=== PATIENT | male | born 1965 | race American Indian/Alaskan Native ===

== ENCOUNTER 2016-10-04 18:07 | Emergency (ER) | payer MEDICARE ==
[2016-10-04 19:00] LABS: Basophils % (Auto) 0.4 % (0.0-1.8); Eosinophils % (Auto) 0.4 % (0.0-4.3); Hematocrit 43.3 % (35.5-45.6); Hemoglobin 15.1 gm/dl (11.8-15.2); Mean Corpuscular HGB Conc 35 % (32-34); Mean Corpuscular Hemoglobin 33 pg (28-32); Mean Corpuscular Volume 95 fl (84-94); Platelet Count 249 K/mm3 (140-440); Red Blood Count 4.56 M/mm3 (3.65-5.03); Red Cell Distribution Width 14.8 % (13.2-15.2); White Blood Count 6.5 K/mm3 (4.5-11.0)
[2016-10-04 19:16] LABS: Anion Gap 27 mmol/L; Blood Urea Nitrogen 9 mg/dL (9-20); Calcium 9.1 mg/dL (8.4-10.2); Carbon Dioxide 17 mmol/L (22-30); Chloride 95.9 mmol/L (98-107); Glucose 82 mg/dL (75-100); Potassium 3.6 mmol/L (3.6-5.0); Sodium 136 mmol/L (137-145)
[2016-10-04 21:21] LABS: Urine Drugs of Abuse Note Disclamer
[2016-10-04 21:38] LABS: Bilirubin,Urine NEG (Negative); Blood,Urine NEG (Negative); Ketones,Urine 80 mg/dL (Negative); Leukocyte Esterase,Urine NEG (Negative); Mucus,Urine FEW /HPF; Nitrite,Urine NEG (Negative); Protein,Urine <15 mg/dL mg/dL (Negative); Urobilinogen,Urine < 2.0 mg/dL (<2.0)
[2016-10-04] MEDS ORDERED: ZOFRAN ODT ONE (22:17)
[2016-10-04] MEDS ORDERED: ZOFRAN ODT PO ONE (22:20)
[2016-10-04] MEDS ORDERED: NACL 0.9% 1000 ML 1,000 ML IV ONE (23:50)
[2016-10-04] MEDS ORDERED: ZOFRAN IV ONE (23:50)
[2016-10-04] MEDS ORDERED: ATIVAN IV ONE (23:52)
[2016-10-04] MEDS ORDERED: ATIVAN PO ONE (23:55)
--- NOTE | 2016-10-04 23:59 | Emergency Department Report ---
ED Medical Clearance HPI - General Chief complaint: Medical Clearance Stated complaint: MEDICAL CLEARANCE,SEIZURE DISORDER Time Seen by Provider: 10/04/16 23:49 Source: patient Mode of arrival: Wheelchair - History of Present Illness Initial comments: 51-year-old male with history of EtOH abuse, seizure, aortic anerusym presenting to the ED complaining of alcohol withdrawal. Patient states he's had dizziness, shortness of breath, nausea secondary to alcohol withdrawal. Pt states his last dose of ETOH was yesterday. Pt states this morning he started to have : mild tremors, N/V, chest pain. He also states while in the home he he felt as if he was going to pass out . however he did not lose consciouness, he felt like he was in a "haze". His eye were opened MD Complaint: medical clearance request Home medications: Previous Rx's Medication Instructions Recorded Last Taken Type Thiamine [Vitamin B-1] 100 mg PO QDAY #30 tablet 07/23/15 Unknown Rx levETIRAcetam [Keppra TAB] 500 mg PO BID #60 tablet 07/23/15 09/29/15 Rx Colchicine 0.6 mg PO DAILY #5 tablet 01/25/16 Unknown Rx Ondansetron [Zofran Odt] 4 mg PO Q8HR PRN #20 tab.rapdis 10/05/16 Unknown Rx chlordiazePOXIDE [Librium] 10 mg PO Q8H #3 capsule 10/05/16 Unknown Rx chlordiazePOXIDE [Librium] 25 mg PO Q8H #3 capsule 10/05/16 Unknown Rx chlordiazePOXIDE [Librium] 50 mg PO Q8H #6 capsule 10/05/16 Unknown Rx levETIRAcetam [Keppra TAB] 500 mg PO BID #30 tablet 10/05/16 Unknown Rx Allergies/Adverse reactions: Allergies Allergy/AdvReac Type Severity Reaction Status Date / Time No Known Allergies Allergy Verified 01/02/15 21:46 ED Review of Systems ROS: Stated complaint: MEDICAL CLEARANCE,SEIZURE DISORDER Other details as noted in HPI Constitutional: denies: chills, fever Eyes: denies: eye pain, eye discharge, vision change ENT: denies: ear pain, throat pain Respiratory: SOB with exertion. denies: cough, shortness of breath, wheezing Cardiovascular: chest pain, palpitations Endocrine: no symptoms reported Gastrointestinal: denies: abdominal pain, nausea, diarrhea Genitourinary: denies: urgency, dysuria Musculoskeletal: denies: back pain, joint swelling, arthralgia Skin: denies: rash, lesions Neurological: denies: headache, weakness, paresthesias Psychiatric: denies: anxiety, depression Hematological/Lymphatic: denies: easy bleeding, easy bruising ED Past Medical Hx - Past Medical History Hx Congestive Heart Failure: No Hx Diabetes: No Hx Arthritis: Yes Hx Seizures: Yes Hx Psychiatric Treatment: Yes (SCHIZOPHRENIA) Hx Asthma: No Hx COPD: No Additional medical history: Gout, Irregular heart beat - Social History Smoking Status: Never Smoker Substance Use Type: Alcohol - Medications Home Medications: Home Medications Medication Instructions Recorded Confirmed Last Taken Type Thiamine [Vitamin B-1] 100 mg PO QDAY #30 tablet 07/23/15 03/26/16 Unknown Rx levETIRAcetam [Keppra TAB] 500 mg PO BID #60 tablet 07/23/15 03/26/16 09/29/15 Rx Colchicine 0.6 mg PO DAILY #5 tablet 01/25/16 03/26/16 Unknown Rx Ondansetron [Zofran Odt] 4 mg PO Q8HR PRN #20 tab.rapdis 10/05/16 Unknown Rx chlordiazePOXIDE [Librium] 10 mg PO Q8H #3 capsule 10/05/16 Unknown Rx chlordiazePOXIDE [Librium] 25 mg PO Q8H #3 capsule 10/05/16 Unknown Rx chlordiazePOXIDE [Librium] 50 mg PO Q8H #6 capsule 10/05/16 Unknown Rx levETIRAcetam [Keppra TAB] 500 mg PO BID #30 tablet 10/05/16 Unknown Rx ED Physical Exam - General Limitations: No Limitations General appearance: alert, in no apparent distress - Head Head exam: Present: atraumatic, normocephalic - Eye Eye exam: Present: normal appearance - ENT ENT exam: Present: mucous membranes moist - Neck Neck exam: Present: normal inspection - Respiratory Respiratory exam: Present: normal lung sounds bilaterally. Absent: respiratory distress - Cardiovascular Cardiovascular Exam: Present: regular rate, normal rhythm. Absent: systolic murmur, diastolic murmur, rubs, gallop - GI/Abdominal GI/Abdominal exam: Present: soft, normal bowel sounds - Rectal Rectal exam: Present: deferred - Extremities Exam Extremities exam: Present: normal inspection - Back Exam Back exam: Present: normal inspection - Neurological Exam Neurological exam: Present: alert, oriented X3, CN II-XII intact, normal gait, other (CIWA: 5 for tremor, anxiety, mild nausea ). Absent: motor sensory deficit - Psychiatric Psychiatric exam: Present: normal affect, normal mood - Skin Skin exam: Present: warm, dry, intact, normal color. Absent: rash ED Course Vital Signs 10/04/16 10/04/16 10/04/16 18:28 23:20 23:55 Temperature 97.8 F 98.2 F 98.1 F Pulse Rate 95 H 98 H 99 H Respiratory 20 18 20 Rate Blood Pressure 154/100 135/96 Blood Pressure 138/87 [Left] O2 Sat by Pulse 100 100 99 Oximetry 10/05/16 01:44 Temperature Pulse Rate 84 Respiratory 16 Rate Blood Pressure Blood Pressure 126/87 [Left] O2 Sat by Pulse 99 Oximetry ED Medical Decision Making - Lab Data Result diagrams: 10/04/16 18:44 10/04/16 18:44 - Medical Decision Making 51-year-old male presenting to the secondary to EtOH withdrawal. Patient's CIWA score 2 for moderate tremor. I have low suspicion for acute cardiac pathology or DTs. I will dc pt home to complete his ETOH detox outpt. Pt agrees and has no complaints - Differential Diagnosis DT, ACS, dissection, anuerysm rupture ED Disposition Clinical Impression: Alcohol withdrawal, Noncompliance with medication regimen Disposition: DC-01 TO HOME OR SELFCARE Is pt being admited?: No Does the pt Need Aspirin: No Condition: Stable Instructions: Abuse of Alcohol (ED) Prescriptions: chlordiazePOXIDE [Librium] 10 mg PO Q8H #3 capsule chlordiazePOXIDE [Librium] 50 mg PO Q8H #6 capsule chlordiazePOXIDE [Librium] 25 mg PO Q8H #3 capsule levETIRAcetam [Keppra TAB] 500 mg PO BID #30 tablet Ondansetron [Zofran Odt] 4 mg PO Q8HR PRN #20 tab.rapdis PRN Reason: Vomiting Referrals: PRIMARY CARE, [Primary Care Provider] - 3-5 Days Forms: Work/School Release Form(ED) Time of Disposition: 02:00
[2016-10-05] MEDS ORDERED: ATIVAN ONE (00:14)
[2016-10-05 00:40] LABS: Albumin 4.3 g/dL (3.9-5); Albumin/Globulin Ratio 0.9 %; Bilirubin,Direct 0.3 mg/dL (0-0.2); Bilirubin,Indirect 0.7 mg/dL
[2016-10-05 01:45] VITALS: BP 126/87
[2016-10-05] MEDS ORDERED: KEPPRA PO ONE (01:54)
--- NOTE | 2016-10-05 07:39 | XRay Report ---
AP CHEST: HISTORY: Shortness of breath Compared to 09/29/15. Heart size appears within normal limits on today's exam. AP view of the chest demonstrates a normal mediastinal and cardiac contour with clear lungs and normal bony and soft tissue structures. IMPRESSION: Unremarkable AP chest.
== END 2016-10-05 02:23 | disposition home or self-care (01) ==
LOC: ED 18:07
DX: F10.239 Alcohol dependence with withdrawal, unspecified (principal); Z91.14 Patient's other noncompliance with medication regimen; F20.9 Schizophrenia, unspecified
CPT/HCPCS: 36415; 71010; 80048; 80074; 80307; 81001; 83880; 84484; 85025; 93005; 93010; 96361; 96374; 99284; G0480; J2405; J7030; 80320; J2060; Q0162

== ENCOUNTER 2017-11-16 21:33 | Emergency (ER) | payer MEDICARE ==
[2017-11-16] MEDS ORDERED: ASPIRIN PO ONE (22:15)
[2017-11-16 23:15] LABS: Basophils % (Auto) 0.6 % (0.0-1.8); Eosinophils # (Auto) 0.2 K/mm3 (0.0-0.4); Eosinophils % (Auto) 3.9 % (0.0-4.3); Hematocrit 41.3 % (35.5-45.6); Hemoglobin 13.9 gm/dl (11.8-15.2); Lymphocytes # (Auto) 1.3 K/mm3 (1.2-5.4); Lymphocytes % (Auto) 30.3 % (13.4-35.0); Mean Corpuscular HGB Conc 34 % (32-34); Mean Corpuscular Hemoglobin 33 pg (28-32); Mean Corpuscular Volume 99 fl (84-94); Monocytes # (Auto) 0.4 K/mm3 (0.0-0.8); Monocytes % (Auto) 8.4 % (0.0-7.3); Platelet Count 203 K/mm3 (140-440); Red Blood Count 4.18 M/mm3 (3.65-5.03); Red Cell Distribution Width 14.1 % (13.2-15.2)
[2017-11-16 23:36] LABS: BUN/Creatinine Ratio 14; Blood Urea Nitrogen 10 mg/dL (9-20); Calcium 9.3 mg/dL (8.4-10.2); Hemolysis Index 27
[2017-11-17] MEDS ORDERED: ZOFRAN IV ONE (02:04)
[2017-11-17] MEDS ORDERED: PEPCID IV ONE ×2 (02:04→06:07)
[2017-11-17] MEDS ORDERED: NACL 0.9% 1000 ML 1,000 ML IV ONE (02:04)
[2017-11-17 02:51] LABS: Alanine Aminotransferase 123 units/L (7-56); Albumin 4.1 g/dL (3.9-5); Lipase 20 units/L (13-60)
[2017-11-17 02:54] LABS: Bilirubin,Direct < 0.2 mg/dL (0-0.2)
--- NOTE | 2017-11-17 04:11 | Emergency Department Report ---
ED Psych HPI - General Chief Complaint: Psych Stated Complaint: HEART/MH Time Seen by Provider: 11/17/17 02:00 Source: patient Mode of arrival: Ambulatory - History of Present Illness Initial Comments: Patient is a 52-year-old [place] male who is complained of being suicidal with no plan for arrival. Patient also has been drinking heavily and is very poor historian. Patient mentioned to someone earlier that he had chest pain however he is pointing to the epigastrium and center abdomen per me. Patient states he is nauseous. Patient is unable to give any additional history at this time. - Related Data Previous Rx's Medication Instructions Recorded Last Taken Type Thiamine [Vitamin B-1] 100 mg PO QDAY #30 tablet 07/23/15 Unknown Rx levETIRAcetam [Keppra TAB] 500 mg PO BID #60 tablet 07/23/15 09/29/15 Rx Colchicine 0.6 mg PO DAILY #5 tablet 01/25/16 Unknown Rx Ondansetron [Zofran Odt] 4 mg PO Q8HR PRN #20 tab.rapdis 10/05/16 Unknown Rx chlordiazePOXIDE [Librium] 10 mg PO Q8H #3 capsule 10/05/16 Unknown Rx chlordiazePOXIDE [Librium] 25 mg PO Q8H #3 capsule 10/05/16 Unknown Rx chlordiazePOXIDE [Librium] 50 mg PO Q8H #6 capsule 10/05/16 Unknown Rx levETIRAcetam [Keppra TAB] 500 mg PO BID #30 tablet 10/05/16 Unknown Rx Allergies Allergy/AdvReac Type Severity Reaction Status Date / Time No Known Allergies Allergy Verified 01/02/15 21:46 ED Review of Systems ROS: Stated complaint: HEART/MH Other details as noted in HPI Comment: Unobtainable due to pts medical conditions ED Past Medical Hx - Past Medical History Hx Congestive Heart Failure: No Hx Diabetes: No Hx Arthritis: Yes Hx Seizures: Yes Hx Psychiatric Treatment: Yes (SCHIZOPHRENIA) Hx Asthma: No Hx COPD: No Additional medical history: Gout, Irregular heart beat - Social History Smoking Status: Current Every Day Smoker Substance Use Type: Alcohol - Medications Home Medications: Home Medications Medication Instructions Recorded Confirmed Last Taken Type Thiamine [Vitamin B-1] 100 mg PO QDAY #30 tablet 07/23/15 03/26/16 Unknown Rx levETIRAcetam [Keppra TAB] 500 mg PO BID #60 tablet 07/23/15 03/26/16 09/29/15 Rx Colchicine 0.6 mg PO DAILY #5 tablet 01/25/16 03/26/16 Unknown Rx Ondansetron [Zofran Odt] 4 mg PO Q8HR PRN #20 tab.rapdis 10/05/16 Unknown Rx chlordiazePOXIDE [Librium] 10 mg PO Q8H #3 capsule 10/05/16 Unknown Rx chlordiazePOXIDE [Librium] 25 mg PO Q8H #3 capsule 10/05/16 Unknown Rx chlordiazePOXIDE [Librium] 50 mg PO Q8H #6 capsule 10/05/16 Unknown Rx levETIRAcetam [Keppra TAB] 500 mg PO BID #30 tablet 10/05/16 Unknown Rx ED Physical Exam - General Limitations: No Limitations General appearance: alert, appears intoxicated - Head Head exam: Present: atraumatic, normocephalic - Eye Eye exam: Present: normal appearance - ENT ENT exam: Present: mucous membranes moist - Neck Neck exam: Present: normal inspection - Respiratory Respiratory exam: Present: normal lung sounds bilaterally. Absent: respiratory distress, wheezes, rales, rhonchi - Cardiovascular Cardiovascular Exam: Present: normal rhythm, tachycardia. Absent: systolic murmur, diastolic murmur, rubs, gallop - GI/Abdominal GI/Abdominal exam: Present: soft, normal bowel sounds. Absent: distended, tenderness, guarding, rebound - Rectal Rectal exam: Present: deferred - Extremities Exam Extremities exam: Present: normal inspection - Back Exam Back exam: Present: normal inspection - Neurological Exam Neurological exam: Present: alert, altered - Psychiatric Psychiatric exam: Present: normal affect, normal mood - Skin Skin exam: Present: warm, dry, intact, normal color. Absent: rash ED Course Vital Signs 11/16/17 22:12 Temperature 98.3 F Pulse Rate 131 H Respiratory 20 Rate Blood Pressure 133/102 O2 Sat by Pulse 99 Oximetry ED Medical Decision Making - Lab Data Result diagrams: 11/16/17 22:41 11/16/17 22:41 Lab Results 11/16/17 11/16/17 11/16/17 Range/Units 22:41 22:41 22:41 WBC (4.5-11.0) K/mm3 RBC (3.65-5.03) M/mm3 Hgb (11.8-15.2) gm/dl Hct (35.5-45.6) % MCV (84-94) fl MCH (28-32) pg MCHC (32-34) % RDW (13.2-15.2) % Plt Count (140-440) K/mm3 Lymph % (Auto) (13.4-35.0) % [place] % (Auto) (0.0-7.3) % Eos % (Auto) (0.0-4.3) % Baso % (Auto) (0.0-1.8) % Lymph # (1.2-5.4) K/mm3 [place] # (0.0-0.8) K/mm3 Eos # (0.0-0.4) K/mm3 Baso # (0.0-0.1) K/mm3 Seg Neutrophils % (40.0-70.0) % Seg Neutrophils # (1.8-7.7) K/mm3 Sodium 137 (137-145) mmol/L Potassium 3.8 (3.6-5.0) mmol/L Chloride 98.5 (98-107) mmol/L Carbon Dioxide 15 L (22-30) mmol/L Anion Gap 27 mmol/L BUN 10 (9-20) mg/dL Creatinine 0.7 L (0.8-1.5) mg/dL Estimated GFR > 60 ml/min BUN/Creatinine Ratio 14 % Glucose 78 (75-100) mg/dL Calcium 9.3 (8.4-10.2) mg/dL Total Bilirubin (0.1-1.2) mg/dL Direct Bilirubin (0-0.2) mg/dL Indirect Bilirubin mg/dL AST (5-40) units/L ALT (7-56) units/L Alkaline Phosphatase (35-129) units/L Troponin T < 0.010 (0.00-0.029) ng/mL Total Protein (6.3-8.2) g/dL Albumin (3.9-5) g/dL Albumin/Globulin Ratio % Lipase (13-60) units/L Salicylates < 0.3 L (2.8-20.0) mg/dL Acetaminophen < 5.0 L (10.0-30.0) ug/mL Plasma/Serum Alcohol (0-0.07) % 11/16/17 11/16/17 11/17/17 Range/Units 22:41 22:41 00:59 WBC 4.3 L (4.5-11.0) K/mm3 RBC 4.18 (3.65-5.03) M/mm3 Hgb 13.9 (11.8-15.2) gm/dl Hct 41.3 (35.5-45.6) % MCV 99 H (84-94) fl MCH 33 H (28-32) pg MCHC 34 (32-34) % RDW 14.1 (13.2-15.2) % Plt Count 203 (140-440) K/mm3 Lymph % (Auto) 30.3 (13.4-35.0) % [place] % (Auto) 8.4 H (0.0-7.3) % Eos % (Auto) 3.9 (0.0-4.3) % Baso % (Auto) 0.6 (0.0-1.8) % Lymph # 1.3 (1.2-5.4) K/mm3 [place] # 0.4 (0.0-0.8) K/mm3 Eos # 0.2 (0.0-0.4) K/mm3 Baso # 0.0 (0.0-0.1) K/mm3 Seg Neutrophils % 56.8 (40.0-70.0) % Seg Neutrophils # 2.4 (1.8-7.7) K/mm3 Sodium (137-145) mmol/L Potassium (3.6-5.0) mmol/L Chloride (98-107) mmol/L Carbon Dioxide (22-30) mmol/L Anion Gap mmol/L BUN (9-20) mg/dL Creatinine (0.8-1.5) mg/dL Estimated GFR ml/min BUN/Creatinine Ratio % Glucose (75-100) mg/dL Calcium (8.4-10.2) mg/dL Total Bilirubin (0.1-1.2) mg/dL Direct Bilirubin (0-0.2) mg/dL Indirect Bilirubin mg/dL AST (5-40) units/L ALT (7-56) units/L Alkaline Phosphatase (35-129) units/L Troponin T < 0.010 (0.00-0.029) ng/mL Total Protein (6.3-8.2) g/dL Albumin (3.9-5) g/dL Albumin/Globulin Ratio % Lipase (13-60) units/L Salicylates (2.8-20.0) mg/dL Acetaminophen (10.0-30.0) ug/mL Plasma/Serum Alcohol 0.22 H (0-0.07) % 11/17/ Range/Units 02:12 WBC (4.5-11.0) K/mm3 RBC (3.65-5.03) M/mm3 Hgb (11.8-15.2) gm/dl Hct (35.5-45.6) % MCV (84-94) fl MCH (28-32) pg MCHC (32-34) % RDW (13.2-15.2) % Plt Count (140-440) K/mm3 Lymph % (Auto) (13.4-35.0) % [place] % (Auto) (0.0-7.3) % Eos % (Auto) (0.0-4.3) % Baso % (Auto) (0.0-1.8) % Lymph # (1.2-5.4) K/mm3 [place] # (0.0-0.8) K/mm3 Eos # (0.0-0.4) K/mm3 Baso # (0.0-0.1) K/mm3 Seg Neutrophils % (40.0-70.0) % Seg Neutrophils # (1.8-7.7) K/mm3 Sodium (137-145) mmol/L Potassium (3.6-5.0) mmol/L Chloride (98-107) mmol/L Carbon Dioxide (22-30) mmol/L Anion Gap mmol/L BUN (9-20) mg/dL Creatinine (0.8-1.5) mg/dL Estimated GFR ml/min BUN/Creatinine Ratio % Glucose (75-100) mg/dL Calcium (8.4-10.2) mg/dL Total Bilirubin 0.30 (0.1-1.2) mg/dL Direct Bilirubin < 0.2 (0-0.2) mg/dL Indirect Bilirubin 0.1 mg/dL AST 158 H (5-40) units/L ALT 123 H (7-56) units/L Alkaline Phosphatase 75 (35-129) units/L Troponin T (0.00-0.029) ng/mL Total Protein 8.6 H (6.3-8.2) g/dL Albumin 4.1 (3.9-5) g/dL Albumin/Globulin Ratio 0.9 % Lipase 20 (13-60) units/L Salicylates (2.8-20.0) mg/dL Acetaminophen (10.0-30.0) ug/mL Plasma/Serum Alcohol (0-0.07) % - Medical Decision Making At the time of history and physical patient is too intoxicated to give further information as far as his suicidality. Patient was given IV fluids Pepcid for presumed alcoholic gastritis. Patient had 2 negative troponin. Critical care attestation.: If time is entered above; I have spent that time in minutes in the direct care of this critically ill patient, excluding procedure time. ED Disposition Condition: Stable Referrals: PRIMARY CARE, [Primary Care Provider] - 3-5 Days
[2017-11-17] MEDS ORDERED: ZOFRAN ONE (06:07)
[2017-11-17] MEDS ORDERED: NACL 0.9% 1000 ML 0 ML ONE (06:07)
[2017-11-17 13:55] LABS: Bilirubin,Urine NEG (Negative); Blood,Urine NEG (Negative); Color,Urine Yellow (Yellow); Granular Casts,Urine 4 /LPF; Hyaline Casts,Urine 3 /LPF; Mucus,Urine 1+ /HPF; Protein,Urine <15 mg/dL mg/dL (Negative)
[2017-11-17 14:01] LABS: Amphetamine Screen,Urine PRESUMPTIVE NEGATIVE; Cannabinoid Screen,Urine PRESUMPTIVE NEGATIVE; Cocaine Screen,Urine PRESUMPTIVE NEGATIVE; Methadone Screen,Urine PRESUMPTIVE NEGATIVE; Opiate Screen,Urine PRESUMPTIVE NEGATIVE
[2017-11-17 14:24] LABS: Benzodiazepines Screen,Urine PRESUMPTIVE POSITIVE
--- NOTE | 2017-11-17 17:41 | Consultation ---
History of Present Illness - Reason for Consult Consult date: 11/17/17 Reason for consult: Initial Psychiatric Evaluation - Chief Complaint Chief complaint: " I don't want to talk right now." Medications and Allergies Allergies Allergy/AdvReac Type Severity Reaction Status Date / Time No Known Allergies Allergy Verified 01/02/15 21:46 Home Medications Medication Instructions Recorded Confirmed Last Taken Type Thiamine [Vitamin B-1] 100 mg PO QDAY #30 tablet 07/23/15 03/26/16 Unknown Rx levETIRAcetam [Keppra TAB] 500 mg PO BID #60 tablet 07/23/15 03/26/16 09/29/15 Rx Colchicine 0.6 mg PO DAILY #5 tablet 01/25/16 03/26/16 Unknown Rx Ondansetron [Zofran Odt] 4 mg PO Q8HR PRN #20 tab.rapdis 10/05/16 Unknown Rx chlordiazePOXIDE [Librium] 10 mg PO Q8H #3 capsule 10/05/16 Unknown Rx chlordiazePOXIDE [Librium] 25 mg PO Q8H #3 capsule 10/05/16 Unknown Rx chlordiazePOXIDE [Librium] 50 mg PO Q8H #6 capsule 10/05/16 Unknown Rx levETIRAcetam [Keppra TAB] 500 mg PO BID #30 tablet 10/05/16 Unknown Rx Mental Status Exam - Vital signs Last Vital Signs Temp 97.8 F 11/17/17 10:53 Pulse 96 H 11/17/17 10:53 Resp 16 11/17/17 10:53 BP 118/64 11/17/17 10:53 Pulse Ox 98 11/17/17 10:53 Results Result Diagrams: 11/16/17 22:41 11/16/17 22:41 Abnormal lab results 11/16/17 11/16/17 11/16/17 Range/Units 22:41 22:41 22:41 WBC (4.5-11.0) K/mm3 MCV (84-94) fl MCH (28-32) pg [place] % (Auto) (0.0-7.3) % Carbon Dioxide 15 L (22-30) mmol/L Creatinine 0.7 L (0.8-1.5) mg/dL AST (5-40) units/L ALT (7-56) units/L Total Protein (6.3-8.2) g/dL Salicylates < 0.3 L (2.8-20.0) mg/dL Acetaminophen < 5.0 L (10.0-30.0) ug/mL Plasma/Serum Alcohol (0-0.07) % 11/16/17 11/16/17 11/17/17 Range/Units 22:41 22:41 02:12 WBC 4.3 L (4.5-11.0) K/mm3 MCV 99 H (84-94) fl MCH 33 H (28-32) pg [place] % (Auto) 8.4 H (0.0-7.3) % Carbon Dioxide (22-30) mmol/L Creatinine (0.8-1.5) mg/dL AST 158 H (5-40) units/L ALT 123 H (7-56) units/L Total Protein 8.6 H (6.3-8.2) g/dL Salicylates (2.8-20.0) mg/dL Acetaminophen (10.0-30.0) ug/mL Plasma/Serum Alcohol 0.22 H (0-0.07) % All other labs normal.
[2017-11-18 09:31] VITALS: BP 112/68
--- NOTE | 2017-11-18 11:41 | Progress Note ---
Subjective - Reason for Consult Consult date: 11/18/17 Reason for consult: Psychiatry Follow-up - Chief Complaint Chief complaint: "I need to stop drinking" 52-year-old AA male presenting to the ER for ETOH. Today the patient is calm and cooperative during the assessment. He stated that he has a hx of Bipolar DO and take Seroquel 200 mg. He stated that he last took his medication 3 days ago. Also, he stated a "long hx of alcohol abuse." He stated that he is aware that he must stop drinking alcohol. He stated that he is serious "now" reference his mental health. He stated that he is seen at [facility] for outpatient psy/rehab services. He don't remember is he stated being suicidal on admission, but is adamant that he was "upset" at the time. The patient's alcohol level was 0.22 on admission. He denies any previous suicide attempts when asked. He stated that he plan get his life together. He denies SI/HI's and AVH's. Mental Status Exam - Vital signs Last Vital Signs Temp 98.2 F 11/18/17 09:31 Pulse 100 H 11/18/17 09:31 Resp 18 11/18/17 09:31 BP 112/68 11/18/17 09:31 Pulse Ox 97 11/18/17 09:31 - Exam Narrative exam: MSE: Appearance: calm, cooperative Behavior: regular eye contact Speech: regular rate and tone Mood: "okay" Affect: congruent to mood Thought Process: logical Thought Content: denies SI/HI's and AVH's Motor Activity: ambulatory Cognition: A/O x 3 Insight: appropriate Judgment: appropriate Assessment and Plan Impression: Hx of Bipolar DO per the patient. Alcohol Use DO. Alcohol Intoxication on admission. Today the patient is calm and cooperative during the assessment. The patient is no threat to self. Recommendation/Plan: The patient can follow up with [facility] for outpatient/rehab services. The patient stated he will need a prescription for Seroquel 200 mg PO HS for mood.
== END 2017-11-18 13:50 | disposition home or self-care (01) ==
LOC: ED 21:33 → EEVIPCON 21:33 → ED 11-18 13:50
DX: R45.851 Suicidal ideations (principal); M19.90 Unspecified osteoarthritis, unspecified site; F20.9 Schizophrenia, unspecified; F17.200 Nicotine dependence, unspecified, uncomplicated; Z79.899 Other long term (current) drug therapy
CPT/HCPCS: 36415; 80048; 80074; 80307; 81001; 83690; 84484; 85025; 99285; G0480; 80320; 93005; 93010; J2405; J7030

== ENCOUNTER 2018-05-23 19:48 | Emergency (ER) | payer MEDICARE ==
[2018-05-23] MEDS ORDERED: FOLVITE 1 MG, INFUVITE 10 ML in NACL 0.9% 1000 ML 1,000 ML IV ONE (20:09)
--- NOTE | 2018-05-23 20:09 | Emergency Department Report ---
Blank Doc - Documentation Documentation: This is a 52-year-old male that presents to the ED with body aches, SZ, shaking. Stated is in alocohol withdraw now. Last drink was last night. This initial assessment diagnostic orders/clinical plan/treatment(s) is/are subject to change based on patient's health status, clinical progression and re- assessment by fellow clinical providers in the ED. Further treatment and workup at subsequent clinical providers discretion. Patient/guardians urged not to elope from ED s their condition may be serious if not clinically assessed and managed. Initial orders include: 1-Patient sent to MAIN ED for further evaluation and treatment 2- labs 3- UA
[2018-05-23] MEDS ORDERED: ATIVAN ONE ×2 (20:19)
[2018-05-23] MEDS ORDERED: KEPPRA 1,000 MG/NS 0.75% 100ML 1,000 MG/100 ML BAG IV ONE (20:27)
[2018-05-23] MEDS ORDERED: ATIVAN IV ONE (20:27)
[2018-05-23] MEDS ORDERED: NACL 0.9% 1000 ML 1,000 ML IV ONE (20:27)
[2018-05-23] MEDS ORDERED: ZOFRAN IV ONE (20:31)
--- NOTE | 2018-05-23 20:31 | Emergency Department Report ---
ED General Adult HPI - General Chief complaint: Fever Stated complaint: CHEST PAIN Time Seen by Provider: 05/23/18 20:08 Source: patient Mode of arrival: Ambulatory Limitations: No Limitations - History of Present Illness Initial comments: Patient is 52 years old male, alcohol dependence, seizure, arthritis and irregular heart beat. Patient presented to the ER complaining of excessive shaking, tremors, blurry vision since this morning. Patient stated that he has been drinking every day and he stop drinking yesterday. Patient is in obvious DTs. Patient stated that he stopped taking his Keppra 2 month ago. Patient denied any seizure. He denied any visual hallucination or auditory hallucination. She denied any chest pain or shortness of breath. Severity scale (0 -10): 10 - Related Data Previous Rx's Medication Instructions Recorded Last Taken Type Thiamine [Vitamin B-1] 100 mg PO QDAY #30 tablet 07/23/15 Unknown Rx levETIRAcetam [Keppra TAB] 500 mg PO BID #60 tablet 07/23/15 09/29/15 Rx Colchicine 0.6 mg PO DAILY #5 tablet 01/25/16 Unknown Rx Ondansetron [Zofran Odt] 4 mg PO Q8HR PRN #20 tab.rapdis 10/05/16 Unknown Rx chlordiazePOXIDE [Librium] 10 mg PO Q8H #3 capsule 10/05/16 Unknown Rx chlordiazePOXIDE [Librium] 25 mg PO Q8H #3 capsule 10/05/16 Unknown Rx chlordiazePOXIDE [Librium] 50 mg PO Q8H #6 capsule 10/05/16 Unknown Rx levETIRAcetam [Keppra TAB] 500 mg PO BID #30 tablet 10/05/16 Unknown Rx Allergies Allergy/AdvReac Type Severity Reaction Status Date / Time No Known Allergies Allergy Verified 01/02/15 21:46 ED Review of Systems ROS: Stated complaint: CHEST PAIN Other details as noted in HPI Comment: All other systems reviewed and negative Constitutional: denies: chills, fever Respiratory: denies: cough, orthopnea, shortness of breath, SOB with exertion Cardiovascular: palpitations. denies: chest pain Gastrointestinal: nausea, vomiting. denies: abdominal pain, diarrhea, constipation Genitourinary: denies: urgency Neurological: denies: headache, weakness, numbness, paresthesias, confusion, abnormal gait Psychiatric: anxiety. denies: depression, auditory hallucinations, visual hallucinations, homicidal thoughts, suicidal thoughts ED Past Medical Hx - Past Medical History Hx Congestive Heart Failure: No Hx Diabetes: No Hx Arthritis: Yes Hx Seizures: Yes Hx Psychiatric Treatment: Yes (SCHIZOPHRENIA) Hx Asthma: No Hx COPD: No Additional medical history: Gout, Irregular heart beat - Surgical History Past Surgical History?: No - Social History Smoking Status: Never Smoker Substance Use Type: Alcohol - Medications Home Medications: Home Medications Medication Instructions Recorded Confirmed Last Taken Type Thiamine [Vitamin B-1] 100 mg PO QDAY #30 tablet 07/23/15 11/17/17 Unknown Rx levETIRAcetam [Keppra TAB] 500 mg PO BID #60 tablet 07/23/15 11/17/17 09/29/15 Rx Colchicine 0.6 mg PO DAILY #5 tablet 01/25/16 11/17/17 Unknown Rx Ondansetron [Zofran Odt] 4 mg PO Q8HR PRN #20 tab.rapdis 10/05/16 11/17/17 Unknown Rx chlordiazePOXIDE [Librium] 10 mg PO Q8H #3 capsule 10/05/16 11/17/17 Unknown Rx chlordiazePOXIDE [Librium] 25 mg PO Q8H #3 capsule 10/05/16 11/17/17 Unknown Rx chlordiazePOXIDE [Librium] 50 mg PO Q8H #6 capsule 10/05/16 11/17/17 Unknown Rx levETIRAcetam [Keppra TAB] 500 mg PO BID #30 tablet 10/05/16 11/17/17 Unknown Rx ED Physical Exam - General Limitations: No Limitations General appearance: alert, anxious, other (obvious tremor) - Head Head exam: Present: atraumatic, normocephalic, normal inspection - Eye Eye exam: Present: normal appearance, PERRL - ENT ENT exam: Present: normal exam, normal orophraynx, mucous membranes moist - Neck Neck exam: Present: normal inspection, full ROM. Absent: tenderness, meningismus, lymphadenopathy, thyromegaly - Respiratory Respiratory exam: Present: normal lung sounds bilaterally. Absent: respiratory distress, wheezes, rales, rhonchi, chest wall tenderness, accessory muscle use, decreased breath sounds, prolonged expiratory - Cardiovascular Cardiovascular Exam: Present: tachycardia - GI/Abdominal GI/Abdominal exam: Present: soft, normal bowel sounds. Absent: distended, tenderness, guarding, rebound, rigid, organomegaly, mass, pulsatile mass, hernia - Extremities Exam Extremities exam: Present: normal inspection, full ROM, normal capillary refill. Absent: pedal edema, calf tenderness - Back Exam Back exam: Present: normal inspection, full ROM. Absent: tenderness, CVA tenderness (R), CVA tenderness (L), muscle spasm, paraspinal tenderness, vertebral tenderness - Neurological Exam Neurological exam: Present: alert, oriented X3, CN II-XII intact, normal gait, reflexes normal - Psychiatric Psychiatric exam: Present: agitated, anxious. Absent: flat affect, manic, homicidal ideation, suicidal ideation - Skin Skin exam: Present: warm, intact, normal color ED Course Vital Signs 05/23/18 05/23/18 05/23/18 20:06 20:08 20:19 Temperature 98.2 F 98.2 F Pulse Rate 119 H 120 H 130 H Respiratory 18 22 23 Rate Blood Pressure 155/108 155/108 O2 Sat by Pulse 98 98 99 Oximetry 05/23/18 05/23/18 05/23/18 20:31 20:45 21:00 Temperature Pulse Rate 113 H 118 H 117 H Respiratory 30 H 17 18 Rate Blood Pressure 149/93 183/99 O2 Sat by Pulse 97 94 94 Oximetry 05/23/18 05/23/18 05/23/18 21:15 21:31 21:45 Temperature Pulse Rate 121 H 122 H 118 H Respiratory 16 17 28 H Rate Blood Pressure 183/99 183/99 183/99 O2 Sat by Pulse 97 92 98 Oximetry 05/23/18 05/23/18 05/23/18 22:01 22:15 22:31 Temperature Pulse Rate 125 H 125 H 116 H Respiratory 30 H 28 H 27 H Rate Blood Pressure 183/99 183/99 183/99 O2 Sat by Pulse 97 96 94 Oximetry 05/23/18 05/23/18 05/23/18 22:35 22:45 23:01 Temperature Pulse Rate 117 H 115 H 107 H Respiratory 19 21 20 Rate Blood Pressure 183/99 183/99 183/99 O2 Sat by Pulse 96 98 98 Oximetry 05/23/18 05/23/18 05/23/18 23:15 23:31 23:45 Temperature Pulse Rate 112 H 125 H 124 H Respiratory 33 H 15 14 Rate Blood Pressure 183/99 183/99 155/82 O2 Sat by Pulse 97 96 97 Oximetry 05/24/18 05/24/18 05/24/18 00:01 00:15 00:31 Temperature Pulse Rate 125 H 120 H 118 H Respiratory 21 21 29 H Rate Blood Pressure 158/139 158/139 158/139 O2 Sat by Pulse 98 97 98 Oximetry 05/24/18 05/24/18 05/24/18 00:45 01:01 01:15 Temperature Pulse Rate 115 H 118 H 108 H Respiratory 16 15 22 Rate Blood Pressure 158/139 158/139 158/139 O2 Sat by Pulse 95 95 96 Oximetry 05/24/18 05/24/18 05/24/18 01:30 01:45 02:01 Temperature Pulse Rate 108 H 110 H 106 H Respiratory 16 14 12 Rate Blood Pressure 134/90 134/90 134/90 O2 Sat by Pulse 97 97 98 Oximetry 05/24/18 05/24/18 05/24/18 02:15 02:31 02:45 Temperature Pulse Rate 102 H 93 H 83 Respiratory 19 20 25 H Rate Blood Pressure 134/90 134/90 134/90 O2 Sat by Pulse 98 97 96 Oximetry - Reevaluation(s) Reevaluation #1: 05/24/18 03:29 Patient evaluated by me multiple times. Patient stated that he felt much better. Tremor and shaking is completely resolved now. No seizure activity observed. No visual hallucination. Vital signs stable. ED Medical Decision Making - Lab Data Result diagrams: 05/23/18 21:48 05/23/18 21:48 - Medical Decision Making Patient is 52 years old with history of alcohol dependence. Patient presented to the ER with an obvious DTs. Patient received 2 mg of Ativan. CIWA protocol was started. Patient has been assessed by our mental health team and recommended to be admitted to [facility]. Critical care attestation.: If time is entered above; I have spent that time in minutes in the direct care of this critically ill patient, excluding procedure time. ED Disposition Clinical Impression: Alcohol withdrawal, Desire for detoxification Disposition: DC-01 TO HOME OR SELFCARE Is pt being admited?: No Condition: Stable Instructions: Alcohol Withdrawal (ED)
[2018-05-23 21:25] LABS: INR 1.35 (0.87-1.13); Partial Thromboplastin Time 26.9 Sec. (24.2-36.6)
[2018-05-23 22:07] LABS: Basophils % (Auto) 0.2 % (0.0-1.8); Hematocrit 42.1 % (35.5-45.6); Hemoglobin 14.6 gm/dl (11.8-15.2); Lymphocytes # (Auto) 0.9 K/mm3 (1.2-5.4); Lymphocytes % (Auto) 23.3 % (13.4-35.0); Mean Corpuscular HGB Conc 35 % (32-34); Mean Corpuscular Volume 94 fl (84-94); Monocytes % (Auto) 13.7 % (0.0-7.3); Platelet Count 189 K/mm3 (140-440); Red Cell Distribution Width 12.5 % (13.2-15.2)
[2018-05-23 22:08] LABS: Eosinophils % (Auto) 0.6 % (0.0-4.3); Monocytes # (Auto) 0.5 K/mm3 (0.0-0.8)
[2018-05-23 22:30] LABS: Alanine Aminotransferase 110 units/L (7-56); Albumin 3.6 g/dL (3.9-5); BUN/Creatinine Ratio 12; Blood Urea Nitrogen 6 mg/dL (9-20); Calcium 9.4 mg/dL (8.4-10.2); Hemolysis Index 28
[2018-05-24 00:10] LABS: Bilirubin,Urine NEG (Negative); Blood,Urine NEG (Negative); Color,Urine Yellow (Yellow); Urobilinogen,Urine < 2.0 mg/dL (<2.0)
[2018-05-24 00:17] LABS: Amphetamine Screen,Urine PRESUMPTIVE NEGATIVE; Benzodiazepines Screen,Urine PRESUMPTIVE NEGATIVE; Cannabinoid Screen,Urine PRESUMPTIVE NEGATIVE; Cocaine Screen,Urine PRESUMPTIVE NEGATIVE; Methadone Screen,Urine PRESUMPTIVE NEGATIVE; Opiate Screen,Urine PRESUMPTIVE NEGATIVE
[2018-05-24] MEDS ORDERED: BABY ASPIRIN PO ONE (00:47)
[2018-05-24] MEDS ORDERED: NACL 0.9% 1000 ML 1,000 ML ONE (01:38)
[2018-05-24] MEDS ORDERED: ZOFRAN ONE (01:38)
[2018-05-24] MEDS ORDERED: KEPPRA 1,000 MG/NS 0.75% 100ML 1,000 MG/100 ML BAG IV ONE (01:38)
[2018-05-24 02:44] LABS: INR 1.03 (0.87-1.13); Partial Thromboplastin Time 29.6 Sec. (24.2-36.6)
[2018-05-24 02:53] VITALS: BP 134/90
== END 2018-05-24 10:17 | disposition home or self-care (01) ==
LOC: ED 19:48
DX: F10.129 Alcohol abuse with intoxication, unspecified (principal); F10.239 Alcohol dependence with withdrawal, unspecified; M19.90 Unspecified osteoarthritis, unspecified site; F20.9 Schizophrenia, unspecified; M10.9 Gout, unspecified; Z79.899 Other long term (current) drug therapy
CPT/HCPCS: 36415; 80053; 80307; 81001; 83735; 84484; 85025; 85379; 85610; 85730; 93005; 93010; 96361; 96365; 96366; 96375; 99284; G0480; J1953; J2060; J2405; J3411; J7030; 80320

== ENCOUNTER 2018-05-24 10:04 | Inpatient (IN) | payer MEDICARE ==
[2018-05-24] MEDS ORDERED: ZOFRAN IV PRN (10:24)
[2018-05-24] MEDS ORDERED: ATIVAN IV PRN ×2 (10:24→10:35)
[2018-05-24] MEDS ORDERED: ALUM-MAG HYDROX-SIMETH 200-200-20MG/5ML PO PRN (10:24)
[2018-05-24] MEDS ORDERED: DULCOLAX PR PRN (10:24)
[2018-05-24] MEDS ORDERED: ROBAXIN PO PRN (10:24)
[2018-05-24] MEDS ORDERED: ZOFRAN ODT PO PRN (10:24)
[2018-05-24] MEDS ORDERED: HABITROL TD PRN (10:24)
[2018-05-24] MEDS ORDERED: IMODIUM PO PRN (10:24)
[2018-05-24] MEDS ORDERED: VISTARIL PO PRN (10:24)
[2018-05-24] MEDS ORDERED: SENOKOT PO PRN (10:24)
[2018-05-24] MEDS ORDERED: BENTYL PO PRN (10:24)
[2018-05-24] MEDS ORDERED: IBUPROFEN PO PRN (10:24)
[2018-05-24] MEDS: THERAGRAN Tab PO SCH (16:14)
[2018-05-24] MEDS: VITAMIN B-1 PO SCH (16:14)
[2018-05-24] MEDS: FOLVITE PO SCH (16:14)
[2018-05-24] MEDS: ATIVAN PO SCH ×3 (16:14→23:13)
--- NOTE | 2018-05-24 16:45 | Vascular Lab Report ---
FINAL REPORT EXAM: VL VENOUS DUPLEX LE BILAT HISTORY: LE edema COMPARISON: None. TECHNIQUE: Duplex Doppler imaging of the veins of the bilateral lower extremities was performed. FINDINGS: The veins of the right lower extremity are patent, compressible, and demonstrate normal waveforms and augmentation. The veins of the left lower extremity are patent, compressible, and demonstrate normal waveforms and augmentation. IMPRESSION: No evidence of deep venous thrombosis of the bilateral lower extremities.
[2018-05-24] MEDS: DESYREL PO SCH (23:13)
[2018-05-24] MEDS: NACL 0.9% 1000 ML 1,000 ML IV SCH (23:14)
[2018-05-25] MEDS: ATIVAN PO SCH ×5 (02:06→22:12)
[2018-05-25] MEDS: THERAGRAN Tab PO SCH (09:03)
[2018-05-25] MEDS: FOLVITE PO SCH (09:04)
[2018-05-25] MEDS: VITAMIN B-1 PO SCH (09:04)
[2018-05-25] MEDS: NACL 0.9% 1000 ML 1,000 ML IV SCH (11:48)
--- NOTE | 2018-05-25 12:20 | XRay Report ---
AP CHEST :05/25/18 CLINICAL: For comparison with VQ scan. Leg edema. COMPARISON:10/05/16 FINDINGS: Normal heart and pulmonary vasculature. The lungs are normally expanded and clear. Focal widening of the right eighth posterior rib with a questionable mixed density lesion of the rib.This is a new finding compared to the previous exam. No fracture. Degenerative change spine. IMPRESSION: No acute cardiopulmonary process.A questionable lesion of the right eighth posterior rib. Rib detail x-rays and or CT may be helpful.
--- NOTE | 2018-05-25 14:24 | Nuclear Medicine Report ---
PERFUSION LUNG SCAN: History: Elevated d-dimer. After injection of Technetium 99m macroaggregated albumin gamma camera imaging of the lungs in multiple projections demonstrates normal pulmonary contours with a homogeneous distribution of activity. No focal areas of perfusion deficiency are identified. IMPRESSION: Normal study.
--- NOTE | 2018-05-25 19:55 | Cat Scan Report ---
FINAL REPORT EXAM: CT CHEST WO CON HISTORY: right rib lesion TECHNIQUE: Standard unenhanced CT of the chest at 2.5 mm axial increments. Coronal and sagittal khadar nstruction was also obtained. PRIORS: CT chest 07/18/2015 FINDINGS: Linear atelectasis or scarring in each posterior lower lobe is noted. Otherwise, the lung parenchyma are expanded and clear with no evidence for parenchymal nodules, infiltrates, vascular congestion, pl eural effusion, or pneumothorax. There is no evidence for mediastinal, hilar, or axillary adenopathy. The esophagus is collapsed. Th e trachea is midline. Cardiovascular structures are within normal limits. Cardiac size and aorta are normal. Images through the lung bases include upper abdomen which show cholelithiasis. Bony structures show multiple remote rib fractures involving the posterior left 4th through 10th ribs and anterior lateral left 5th through 7th ribs. Mild superior endplate narrowing at T12 is stable. No lesion in the right rib is seen. However, at this time, I do not have further history with attenti on to any rib on the right. IMPRESSION: 1. linear atelectasis or scarring in each lower lobe. 2. Multiple remote rib fractures in the left ribs noted. 3. No definite lesion in the right ribs is noted.
[2018-05-25] MEDS: TYLENOL PO PRN (22:12)
[2018-05-25] MEDS: DESYREL PO SCH (22:12)
--- NOTE | 2018-05-25 23:59 | Progress Note ---
Assessment and Plan Assessment and plan: 52M who presented asking for etoh detox Dx Etoh dependence and withdrawal elevated D dimer plan Cont CIWA protocol and MSU protocol for withdrawal symptoms LE doppler and VQ scan neg History Interval history: Complaining of some tremors in his extremities, feeling shaky Review of systems Constitutional: No fevers, no malaise, no joint pains CVS: No chest pain, no orthopnea, no dyspnea on exertion, no pedal edema GI: No abdominal pain, no diarrhea, no vomiting, no constipation Respiratory: No shortness of breath, no wheezing, no coughing Hospitalist Physical - Physical exam Narrative exam: General.: Appears well, no distress, nontoxic HEENT: Moist mucous membranes, extraocular muscles intact, no lymphadenopathy Neck: supple Cardiac: S1-S2 heard Lungs: clear to auscultation bilaterally Abdomen: soft , nontender, nondistended, bowel sounds positive Extremities: no edema clubbing or cyanosis Skin: no rash or lesions Neurologic: no gross focal deficits, tremors in hands noted Psych: calm, and cooperative - Constitutional Vitals: Temp Pulse Resp BP Pulse Ox 99.3 F 92 H 20 135/63 95 05/25/18 19:30 05/25/18 19:30 05/25/18 19:30 05/25/18 19:30 05/25/18 19:30 Results - Labs Labs: Laboratory Last Values Amylase 82 units/L (27-131) 05/24/18 13:03 Lipase 26 units/L (13-60) 05/24/18 13:03
--- NOTE | 2018-05-25 23:59 | History and Physical Report ---
History of Present Illness Date of admission: 05/24/18 11:43 Chief complaint: i need etoh detox History of present illness: 52M with pmh of etoh dependence, drinks 6 beers a day who pw wanting to quit etoh he was just seen in ER and cleared for admission he is c/o tremors, feeling anxious, and shaking his extremities, he is craving etoh PMH; etoh dependence, hx of seizue in past, has not had seiures in years and has not needed AEDs PSx; denies surgeries Family hX; htn social hx; unemployed, lives with family Medications and Allergies Allergies Allergy/AdvReac Type Severity Reaction Status Date / Time No Known Allergies Allergy Verified 01/02/15 21:46 Home Medications Medication Instructions Recorded Confirmed Last Taken Type Thiamine [Vitamin B-1] 100 mg PO QDAY #30 tablet 07/23/15 05/25/18 05/24/18 13:00 Rx Colchicine 0.6 mg PO DAILY #5 tablet 01/25/16 05/25/18 Unknown Rx Ondansetron [Zofran Odt] 4 mg PO Q8HR PRN #20 tab.rapdis 10/05/16 05/25/18 Unknown Rx levETIRAcetam [Keppra TAB] 500 mg PO BID #30 tablet 10/05/16 05/25/18 Unknown Rx Gabapentin 300 mg PO BID 05/25/18 05/25/18 Unknown History Active Meds: Active Medications Acetaminophen (Tylenol) 500 mg PO Q4H PRN PRN Reason: Temp > 100.4 Last Admin: 05/25/18 22:12 Dose: 500 mg Documented by: Al Hydrox/Mg Hydrox/Simethicone (Alum-Mag Hydrox-Simeth [phone]/5ml) 30 ml PO Q6H PRN PRN Reason: Dyspepsia Bisacodyl (Dulcolax) 10 mg MA QDAY PRN PRN Reason: Bowel Movement Dicyclomine HCl (Bentyl) 20 mg PO Q6H PRN PRN Reason: Abdominal Discomfort Last Admin: 05/24/18 20:49 Dose: 20 mg Documented by: Folic Acid (Folvite) 1 mg PO QDAY AMBERLY Last Admin: 05/25/18 09:04 Dose: 1 mg Documented by: Hydroxyzine Pamoate (Vistaril) 50 mg PO Q6H PRN PRN Reason: Anxiety Mild Sodium Chloride (Nacl 0.9% 1000 Ml) 1,000 mls @ 75 mls/hr IV DIRECT [facility] Last Admin: 05/25/18 11:48 Dose: 75 mls/hr Documented by: Ibuprofen (Motrin) 600 mg PO Q8H PRN PRN Reason: Pain, Mild (1-3) Last Admin: 05/24/18 20:49 Dose: 600 mg Documented by: Loperamide HCl (Imodium) 2 mg PO Q8H PRN PRN Reason: Diarrhea Lorazepam (Ativan) 2 mg IV PRN PRN PRN Reason: Seizures Lorazepam (Ativan) 1 mg IV Q4H PRN PRN Reason: Anxiety Severe Lorazepam (Ativan) 1 mg PO Q6H [facility] Stop: 05/26/18 10:01 Last Admin: 05/25/18 22:12 Dose: 1 mg Documented by: Lorazepam (Ativan) 1 mg PO Q8H [facility] Stop: 05/27/18 10:01 Methocarbamol (Robaxin) 750 mg PO Q6H PRN PRN Reason: Muscle Ache Multivitamins (Theragran Tab) 1 each PO QDAY [facility] Last Admin: 05/25/18 09:03 Dose: 1 each Documented by: Nicotine (Habitrol) 21 mg TD QDAY PRN PRN Reason: Smoking Cessation Ondansetron HCl (Zofran) 4 mg IV Q6H PRN PRN Reason: Moderat/Severe Nausea/Vomiting Ondansetron HCl (Zofran Odt) 4 mg PO Q6H PRN PRN Reason: Mild / Nausea And Vomiting Last Admin: 05/24/18 16:14 Dose: 4 mg Documented by: Senna (Senokot) 17.2 mg PO QHS PRN PRN Reason: Constipation Thiamine HCl (Vitamin B-1) 100 mg PO QDAY [facility] Last Admin: 05/25/18 09:04 Dose: 100 mg Documented by: Trazodone HCl (Desyrel) 50 mg PO QHS [facility] Last Admin: 05/25/18 22:12 Dose: 50 mg Documented by: Review of Systems All systems: negative Constitutional: no weight loss Ears, nose, mouth and throat: no ear pain Cardiovascular: no chest pain Respiratory: no cough Gastrointestinal: no abdominal pain Genitourinary Male: no dysuria Rectal: no pain Musculoskeletal: no neck stiffness Integumentary: no deferred Neurological: no head injury Psychiatric: no anxiety Endocrine: no cold intolerance Hematologic/Lymphatic: no easy bruising Allergic/Immunologic: no urticaria Exam - Constitutional Vitals: Temp Pulse Resp BP Pulse Ox 99.3 F 92 H 20 135/63 95 05/25/18 19:30 05/25/18 19:30 05/25/18 19:30 05/25/18 19:30 05/25/18 19:30 General appearance: Present: no acute distress, well-nourished - EENT Eyes: Present: PERRL ENT: hearing intact, clear oral mucosa - Neck Neck: Present: supple, normal ROM - Respiratory Respiratory effort: normal Respiratory: bilateral: CTA - Cardiovascular Heart Sounds: Present: S1 & S2. Absent: rub, click - Extremities Extremities: pulses symmetrical, No edema Peripheral Pulses: within normal limits - Abdominal General gastrointestinal: Present: soft, non-tender, non-distended, normal bowel sounds Male genitourinary: Present: normal - Integumentary Integumentary: Present: clear, warm, dry - Musculoskeletal Musculoskeletal: gait normal, strength equal bilaterally - Psychiatric Psychiatric: appropriate mood/affect, intact judgment & insight - Neurologic Neurologic: CNII-XII intact, moves all extremities Results - Labs Labs: Laboratory Last Values Amylase 82 units/L (27-131) 05/24/18 13:03 Lipase 26 units/L (13-60) 05/24/18 13:03 Assessment and Plan Assessment and plan: 52M who presented asking for etoh detox Dx Etoh dependence and withdrawal elevated D dimer plan Cont CIWA protocol and MSU protocol for withdrawal symptoms LE doppler and VQ scan neg
[2018-05-26] MEDS: ATIVAN PO SCH ×3 (07:35→17:07)
[2018-05-26] MEDS: NACL 0.9% 1000 ML 1,000 ML IV SCH (07:43)
[2018-05-26] MEDS: THERAGRAN Tab PO SCH (09:08)
[2018-05-26] MEDS: FOLVITE PO SCH (09:08)
[2018-05-26] MEDS: VITAMIN B-1 PO SCH (09:08)
--- NOTE | 2018-05-26 11:44 | Discharge Summary ---
Providers - Providers Date of Admission: 05/24/18 11:43 Attending physician: SORIN KEMP MD Primary care physician: [facility] MD ADOLFO Core Measure Documentation - Palliative Care Palliative Care/ Comfort Measures: Not Applicable Exam - Constitutional Vitals: Temp Pulse Resp BP Pulse Ox 98.7 F 88 20 139/79 93 05/26/18 11:34 05/26/18 11:34 05/26/18 11:34 05/26/18 11:34 05/26/18 11:34 Plan Follow up with: LISA BAGLEY MD [Primary Care Provider] - 7 Days
--- NOTE | 2018-05-26 11:51 | Progress Note ---
Assessment and Plan Assessment and plan: 52M who presented asking for etoh detox Dx Etoh dependence and withdrawal elevated D dimer plan Cont CIWA protocol and MSU protocol for withdrawal symptoms LE doppler and VQ scan neg dc tomorrow after completion of program He is going to [place], transportation has been set up for 11 AM tomorrow History Interval history: Complaining of some tremors in his extremities, feeling shaky Review of systems Constitutional: No fevers, no malaise, no joint pains CVS: No chest pain, no orthopnea, no dyspnea on exertion, no pedal edema GI: No abdominal pain, no diarrhea, no vomiting, no constipation Respiratory: No shortness of breath, no wheezing, no coughing Hospitalist Physical - Physical exam Narrative exam: General.: Appears well, no distress, nontoxic HEENT: Moist mucous membranes, extraocular muscles intact, no lymphadenopathy Neck: supple Cardiac: S1-S2 heard Lungs: clear to auscultation bilaterally Abdomen: soft , nontender, nondistended, bowel sounds positive Extremities: no edema clubbing or cyanosis Skin: no rash or lesions Neurologic: no gross focal deficits, tremors in hands noted Psych: calm, and cooperative - Constitutional Vitals: Temp Pulse Resp BP Pulse Ox 98.7 F 88 20 139/79 93 05/26/18 11:34 05/26/18 11:34 05/26/18 11:34 05/26/18 11:34 05/26/18 11:34 General appearance: Present: no acute distress, well-nourished Results - Labs Labs: Laboratory Last Values Amylase 82 units/L (27-131) 05/24/18 13:03 Lipase 26 units/L (13-60) 05/24/18 13:03
[2018-05-26] MEDS: TYLENOL PO PRN (16:14)
[2018-05-26] MEDS: DESYREL PO SCH (22:57)
[2018-05-27] MEDS: ATIVAN PO SCH ×2 (01:45→09:00)
[2018-05-27 08:07] VITALS: BP 140/94
[2018-05-27] MEDS: VITAMIN B-1 PO SCH (09:00)
[2018-05-27] MEDS: FOLVITE PO SCH (09:00)
[2018-05-27] MEDS: THERAGRAN Tab PO SCH (09:00)
--- NOTE | 2018-05-27 09:15 | Discharge Summary ---
Providers - Providers Date of Admission: 05/24/18 11:43 Date of discharge: 05/27/18 Attending physician: BILLY KHAN SW/CC [facility] Reason for admission: Alcohol detox Condition: Fair Hospital course: HPI: need etoh detox History of present illness: 52M with pmh of etoh dependence, drinks 6 beers a day who pw wanting to quit etoh he was just seen in ER and cleared for admission he is c/o tremors, feeling anxious, and shaking his extremities, he is craving etoh Hospital course: Patient was admitted to the hospital medicine service. Managed with the CIWA protocol. Electrolyte Imbalances were repleted. Pt was evaluated for inpatient Alcohol detox unit and was accepted to [facility]. He is being discharged today with fair diagnosis and stable VS. Patient counseled extensively about medication compliance, the GREAT need to quit alcohol abuse and dependence. Patient hopes to make life style changes. Disposition: DC/TX-65 PSY HOSP/PSY UNIT Time spent for discharge: More than 30 mins - Discharge Diagnoses (1) Alcohol withdrawal Status: Acute Comment: QUIT Alcohol abuse. Discharged to [facility] inpatient unit (2) Obesity (BMI 30.0-34.9) Status: Acute Comment: loose weight Core Measure Documentation - Palliative Care Palliative Care/ Comfort Measures: Not Applicable - Core Measures Any of the following diagnoses?: none Exam - Constitutional Vitals: Temp Pulse Resp BP Pulse Ox 98.8 F 96 H 20 140/94 93 05/27/18 08:03 05/27/18 08:03 05/27/18 08:03 05/27/18 08:03 05/27/18 08:03 General appearance: Present: no acute distress, well-nourished, other (slightly tremulous) - EENT Eyes: Present: EOM intact ENT: hearing intact, clear oral mucosa - Respiratory Respiratory: bilateral: CTA, negative: diminished, rales, rhonchi, wheezing - Cardiovascular Rhythm: regular Heart Sounds: Present: S1 & S2 - Extremities Extremities: pulses intact, pulses symmetrical, normal temperature, normal color - Abdominal General gastrointestinal: Present: soft, non-tender, non-distended, normal bowel sounds Male genitourinary: Present: deferred - Rectal Rectal Exam: deferred - Integumentary Integumentary: Present: clear, warm, dry - Musculoskeletal Musculoskeletal: strength equal bilaterally - Psychiatric Psychiatric: appropriate mood/affect, intact judgment & insight, cooperative - Neurologic Neurologic: CNII-XII intact, moves all extremities - Allied Health Allied health notes reviewed: nursing, social work, case management Plan Activity: fall precautions Weight Bearing Status: Full Weight Bearing Diet: advance as tolerated Special Instructions: record daily BP diary, record blood sugar diary Follow up with: LISA BAGLEY MD [Primary Care Provider] - 7 Days Prescriptions: Folic Acid [Folvite] 1 mg PO QDAY #30 tablet Multivitamin Tab [Multiple Vitamin TAB (Theragran)] 1 each PO QDAY 30 Days tablet
== END 2018-05-27 11:30 | DRG 897 ==
LOC: 2B-ACE 10:04 → UNDOADMIN 10:04 → MSU 11:43
PROVIDERS: ADMIT Internal Medicine; ATTEND Family Medicine
DX: F10.239 Alcohol dependence with withdrawal, unspecified (principal); E66.9 Obesity, unspecified; Z68.33 Body mass index [BMI] 33.0-33.9, adult; Z82.49 Family history of ischemic heart disease and other diseases of the circulatory system; Z79.899 Other long term (current) drug therapy
CPT/HCPCS: 36415; 71045; 71250; 78580; 80053; 80307; 80320; 81001; 82150; 83690; 83735; 84484; 85025; 85379; 85610; 85730; 93005; 93010; 93970; 96361; 96365; 96366; 96375; G0378; A9540; G0480; J1953; J2060; J2405; J3411; J7030; Q0162

== ENCOUNTER 2018-06-01 16:17 | Emergency (ER) | payer MEDICARE ==
--- NOTE | 2018-06-01 16:56 | Emergency Department Report ---
Blank Doc - Documentation Documentation: This is a 52-year-old male that presents with chest pain. When asked patient a bout chest pain, he stated it is "very little bite". Denies any radiation of pain. Denies any SOB. This initial assessment/diagnostic orders/clinical plan/treatment(s) is/are subject to change based on patient's health status, clinical progression and re- assessment by fellow clinical providers in the ED. Further treatment and workup at subsequent clinical providers discretion. Patient/guardians urged not to elope from the ED as their condition may be serious if not clinically assessed and managed. Initial orders include: 1- Patient sent to [facility] for further evaluation and treatment 2- EKG 3- Labs 4- CXR
[2018-06-01 17:54] LABS: Hematocrit 38.3 % (35.5-45.6); Hemoglobin 13.2 gm/dl (11.8-15.2); Mean Corpuscular HGB Conc 34 % (32-34); Mean Corpuscular Volume 93 fl (84-94); Platelet Count 223 K/mm3 (140-440); Red Blood Count 4.13 M/mm3 (3.65-5.03); Red Cell Distribution Width 12.5 % (13.2-15.2)
--- NOTE | 2018-06-01 17:59 | XRay Report ---
PROCEDURE: XR CHEST ROUTINE 2V TECHNIQUE: Chest 2 views HISTORY: Chest Pain COMPARISONS: Prior exams are not available for comparison at this time FINDINGS: No acute pulmonary infiltrate identified. No pleural fluid collection seen. The cardiac and mediastin al contours are unremarkable. Pulmonary vasculature is unremarkable. IMPRESSION: No acute cardiopulmonary abnormality identified. This document is electronically signed by Tavon Perea MD., June 01 2018 05:57:02 PM ET
[2018-06-01 18:04] LABS: Partial Thromboplastin Time 24.3 Sec. (24.2-36.6)
[2018-06-01 18:11] LABS: Alanine Aminotransferase 142 units/L (7-56); Albumin 3.5 g/dL (3.9-5); BUN/Creatinine Ratio 13; Blood Urea Nitrogen 8 mg/dL (9-20); Calcium 9.3 mg/dL (8.4-10.2); Hemolysis Index 36
--- NOTE | 2018-06-01 18:26 | Emergency Department Report ---
ED Chest Pain HPI - General Chief Complaint: Chest Pain Stated Complaint: CHEST PAIN/DIZZINESS Time Seen by Provider: 06/01/18 16:53 Source: patient Mode of arrival: Ambulatory Limitations: No Limitations - History of Present Illness Initial Comments: Pt is a 52 yo male who presents to the ED with c/o substernal CP that began today. The patient states he has associated palpitations and exertional SOB. He states when he is up walking around that it feels like his heart is racing. The patient denies any N/V, diaphoresis, cough, LE edema, recent surgery, or long car/plane ride. He states that last week he spent a week in the hospital due to alcohol withdrawal and did not get out of bed much. He denies any drug use or tobacco use. He denies any hx of DM or HTN. MD Complaint: chest pain Onset/Timin -: days(s) Pain Location: substernal Pain Radiation: none Severity: mild Severity scale (0 -10): 4 Quality: aching re: dyspnea. denies: nausea, vomting, diaphoresis, sense of impending doom Other Symptoms: palpitations. denies: cough, fever, syncope, rash, acid taste in mouth, leg swelling Treatments Prior to Arrival: none Aspirin use within the Past 7 Days: (0) No - Related Data Home Medications Medication Instructions Recorded Confirmed Last Taken Gabapentin 300 mg PO BID 05/25/18 05/25/18 Unknown Previous Rx's Medication Instructions Recorded Last Taken Type Thiamine [Vitamin B-1] 100 mg PO QDAY #30 tablet 07/23/15 05/24/18 13:00 Rx Colchicine 0.6 mg PO DAILY #5 tablet 01/25/16 Unknown Rx Ondansetron [Zofran Odt] 4 mg PO Q8HR PRN #20 tab.rapdis 10/05/16 Unknown Rx levETIRAcetam [Keppra TAB] 500 mg PO BID #30 tablet 10/05/16 Unknown Rx Folic Acid [Folvite] 1 mg PO QDAY #30 tablet 05/27/18 Unknown Rx Multivitamin Tab [Multiple Vitamin 1 each PO QDAY 30 Days tablet 05/27/18 Unknown Rx TAB (Theragran)] Meclizine HCl [Meclizine CHEW] 25 mg PO DAILY #20 tab.chew 06/02/18 Unknown Rx Allergies Allergy/AdvReac Type Severity Reaction Status Date / Time No Known Allergies Allergy Verified 01/02/15 21:46 Heart Score - HEART Score History: Slightly suspicious EKG: Normal Age: 45-65 Risk factors: No known risk factors Troponin: < normal limit HEART Score: 1 ED Review of Systems ROS: Stated complaint: CHEST PAIN/DIZZINESS Other details as noted in HPI Comment: All other systems reviewed and negative ED Past Medical Hx - Past Medical History Previous Medical History?: Yes Hx Congestive Heart Failure: No Hx Diabetes: No Hx Arthritis: Yes Hx Seizures: Yes Hx Psychiatric Treatment: Yes (SCHIZOPHRENIA) Hx Asthma: No Hx COPD: No Additional medical history: Gout, Irregular heart beat - Surgical History Past Surgical History?: Yes - Social History Smoking Status: Never Smoker Substance Use Type: None - Medications Home Medications: Home Medications Medication Instructions Recorded Confirmed Last Taken Type Thiamine [Vitamin B-1] 100 mg PO QDAY #30 tablet 07/23/15 05/25/18 05/24/18 13:00 Rx Colchicine 0.6 mg PO DAILY #5 tablet 01/25/16 05/25/18 Unknown Rx Ondansetron [Zofran Odt] 4 mg PO Q8HR PRN #20 tab.rapdis 10/05/16 05/25/18 Unknown Rx levETIRAcetam [Keppra TAB] 500 mg PO BID #30 tablet 10/05/16 05/25/18 Unknown Rx Gabapentin 300 mg PO BID 05/25/18 05/25/18 Unknown History Folic Acid [Folvite] 1 mg PO QDAY #30 tablet 05/27/18 Unknown Rx Multivitamin Tab [Multiple Vitamin 1 each PO QDAY 30 Days tablet 05/27/18 Unknown Rx TAB (Theragran)] Meclizine HCl [Meclizine CHEW] 25 mg PO DAILY #20 tab.chew 06/02/18 Unknown Rx ED Physical Exam - General Limitations: No Limitations (no LE edema) General appearance: alert, in no apparent distress - Head Head exam: Present: atraumatic, normocephalic - Eye Eye exam: Present: normal appearance - ENT ENT exam: Present: mucous membranes moist - Respiratory Respiratory exam: Present: normal lung sounds bilaterally. Absent: respiratory distress, wheezes, rales, rhonchi, stridor, accessory muscle use, decreased breath sounds, prolonged expiratory - Cardiovascular Cardiovascular Exam: Present: normal rhythm, tachycardia (mildly tachycardic ), normal heart sounds. Absent: systolic murmur, rubs, gallop - GI/Abdominal GI/Abdominal exam: Present: soft. Absent: distended (no LE edema ) - Neurological Exam Neurological exam: Present: alert, oriented X3 - Psychiatric Psychiatric exam: Present: normal affect, normal mood - Skin Skin exam: Present: warm, dry, intact ED Course Vital Signs 06/01/18 06/01/18 06/01/18 16:54 18:43 19:35 Temperature 98 F 98.7 F Pulse Rate 102 H 103 H Respiratory 18 16 15 Rate Blood Pressure 120/79 115/67 Blood Pressure [Right] O2 Sat by Pulse 98 97 Oximetry 06/02/18 01:12 Temperature 98.9 F Pulse Rate 85 Respiratory 18 Rate Blood Pressure Blood Pressure 110/64 [Right] O2 Sat by Pulse 98 Oximetry - Reevaluation(s) Reevaluation #1: 06/01/18 11:00 pm Pt had to have an IV placed by Dr. Menon in the right EJ to be able to get a line for the patient to get a CTA. While placing the pt in trendelenberg the pt states he began to feel dizziness. Gave pt a dose of meclizine the pt states his dizziness completely resolved. WILLI score - Willi Score Age > 65: (0) No Aspirin use within the Past 7 Days: (0) No 3 or more CAD Risk Factors: (0) No 2 or more Angina events in past 24 hrs: (0) No Known CAD with more than 50% Stenosis: (0) No Elevated Cardiac Markers: (0) No ST Deviation Greater than 0.5mm: (0) No WILLI Score: 0 ED Medical Decision Making - Lab Data Result diagrams: 06/01/18 17:30 06/01/18 17:30 Laboratory Results - last 24 hr 06/01/18 06/01/18 06/01/18 17:30 17:30 17:30 WBC 4.6 RBC 4.13 Hgb 13.2 Hct 38.3 MCV 93 MCH 32 MCHC 34 RDW 12.5 L Plt Count 223 [place] % (Auto) Public Address System Operator Add Manual Diff Complete Total Counted 100 Seg Neuts % (Manual) 53.0 Band Neutrophils % 1.0 Lymphocytes % (Manual) 30.0 Reactive Lymphs % (Man) 0 Monocytes % (Manual) 13.0 H Eosinophils % (Manual) 3.0 Basophils % (Manual) 0 Metamyelocytes % 0 Myelocytes % 0 Promyelocytes % 0 Blast Cells % 0 Nucleated RBC % Not Reportable Seg Neutrophils # Man 2.4 Band Neutrophils # 0.0 Lymphocytes # (Manual) 1.4 Abs React Lymphs (Man) 0.0 Monocytes # (Manual) 0.6 Eosinophils # (Manual) 0.1 Basophils # (Manual) 0.0 Metamyelocytes # 0.0 Myelocytes # 0.0 Promyelocytes # 0.0 Blast Cells # 0.0 WBC Morphology Not Reportable Hypersegmented Neuts Not Reportable Hyposegmented Neuts Not Reportable Hypogranular Neuts Not Reportable Smudge Cells Not Reportable Toxic Granulation Not Reportable Toxic Vacuolation Not Reportable Dohle Bodies Not Reportable Pelger-Huet Anomaly Not Reportable Annalise Rods Not Reportable Platelet Estimate Consistent w auto Clumped Platelets Not Reportable Plt Clumps, EDTA Not Reportable Large Platelets Not Reportable Giant Platelets Not Reportable Platelet Satelliting Not Reportable Plt Morphology Comment Not Reportable RBC Morphology Not Reportable Dimorphic RBCs Not Reportable Polychromasia Not Reportable Hypochromasia Not Reportable Poikilocytosis Not Reportable Anisocytosis 1+ Microcytosis Not Reportable Macrocytosis Not Reportable Spherocytes Not Reportable Pappenheimer Bodies Not Reportable Sickle Cells Not Reportable Target Cells Not Reportable Tear Drop Cells Not Reportable Ovalocytes Not Reportable Helmet Cells Not Reportable [place] Bodies Not Reportable [place] Rings Not Reportable [place] Cells Not Reportable Bite Cells Not Reportable Crenated Cell Not Reportable Elliptocytes Not Reportable Acanthocytes (Spur) Not Reportable Rouleaux Not Reportable Hemoglobin C Crystals Not Reportable Schistocytes Not Reportable Malaria parasites Not Reportable Rolando Bodies Not Reportable Hem Pathologist Commnt No PT 13.8 INR 1.00 APTT 24.3 D-Dimer Sodium 137 Potassium 4.2 Chloride 101.7 Carbon Dioxide 21 L Anion Gap 19 BUN 8 L Creatinine 0.6 L Estimated GFR > 60 BUN/Creatinine Ratio 13 Glucose 105 H Calcium 9.3 Total Bilirubin 0.50 AST 100 H ALT 142 H Alkaline Phosphatase 63 Troponin T < 0.010 Total Protein 7.5 Albumin 3.5 L Albumin/Globulin Ratio 0.9 06/01/18 06/01/18 17:30 21:19 WBC RBC Hgb Hct MCV MCH MCHC RDW Plt Count [place] % (Auto) Add Manual Diff Total Counted Seg Neuts % (Manual) Band Neutrophils % Lymphocytes % (Manual) Reactive Lymphs % (Man) Monocytes % (Manual) Eosinophils % (Manual) Basophils % (Manual) Metamyelocytes % Myelocytes % Promyelocytes % Blast Cells % Nucleated RBC % Seg Neutrophils # Man Band Neutrophils # Lymphocytes # (Manual) Abs React Lymphs (Man) Monocytes # (Manual) Eosinophils # (Manual) Basophils # (Manual) Metamyelocytes # Myelocytes # Promyelocytes # Blast Cells # WBC Morphology Hypersegmented Neuts Hyposegmented Neuts Hypogranular Neuts Smudge Cells Toxic Granulation Toxic Vacuolation Dohle Bodies Pelger-Huet Anomaly Annalise Rods Platelet Estimate Clumped Platelets Plt Clumps, EDTA Large Platelets Giant Platelets Platelet Satelliting Plt Morphology Comment RBC Morphology Dimorphic RBCs Polychromasia Hypochromasia Poikilocytosis Anisocytosis Microcytosis Macrocytosis Spherocytes Pappenheimer Bodies Sickle Cells Target Cells Tear Drop Cells Ovalocytes Helmet Cells [place] Bodies [place] Rings [place] Cells Bite Cells Crenated Cell Elliptocytes Acanthocytes (Spur) Rouleaux Hemoglobin C Crystals Schistocytes Malaria parasites Rolando Bodies Hem Pathologist Commnt PT INR APTT D-Dimer 630.77 H Sodium Potassium Chloride Carbon Dioxide Anion Gap BUN Creatinine Estimated GFR BUN/Creatinine Ratio Glucose Calcium Total Bilirubin AST ALT Alkaline Phosphatase Troponin T < 0.010 Total Protein Albumin Albumin/Globulin Ratio - Radiology Data Radiology results: report reviewed CTA chest: no pulmonary embolism or thoracic aortic aneurysm or dissection. There is no acute lung disease. - Medical Decision Making Pt presented with c/o CP that began today. EKG with no acute abnormality, CXR normal, troponin negative x2. D-dimer was positive so a CTA was performed and showed no acute abnormality. Pt became dizzy upon being placed in trendelenberg gave dose of meclizine and dizziness completely resolved. Will send pt home with prescription for meclizine. Advised pt to follow up with PCP in the next 2-3 days. 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 Discussed with pt return to ED if any new or worsening sx. - Differential Diagnosis DC, PE, Musculoskeletal pain, Aortic aneurysm, Dissection, GERD, Vertigo Critical care attestation.: If time is entered above; I have spent that time in minutes in the direct care of this critically ill patient, excluding procedure time. ED Disposition Clinical Impression: Vertigo Chest pain Qualifiers: Chest pain type: unspecified Qualified Code(s): R07.9 - Chest pain, unspecified Disposition: TO HOME OR SELFCARE Is pt being admited?: No Does the pt Need Aspirin: No Condition: Stable Instructions: Chest Pain (ED), Vertigo (ED) Additional Instructions: Follow up with primary care doctor in the next 2-3 days. Return to the emergency room if any new or worsening symptoms. Follow up with your cooler room worker if you continue to have chest pain. Prescriptions: Meclizine HCl [Meclizine CHEW] 25 mg PO DAILY #20 tab.chew Referrals: GIGI BASURTO MD [Primary Care Provider] - 3-5 Days Forms: Work/School Release Form(ED) Time of Disposition: 03:18 Print Language: AMHARIC
[2018-06-01 20:50] LABS: Anisocytosis 1+; Basophils % (Manual) 0 % (0.0-1.8); Platelet Estimate Consistent w Auto; Total Cells Counted 100
[2018-06-01] MEDS ORDERED: ANTIVERT PO ONE (22:26)
[2018-06-02] MEDS ORDERED: ANTIVERT ONE (01:10)
--- NOTE | 2018-06-02 02:43 | Cat Scan Report ---
PROCEDURE: CT ANGIOGRAM OF THE CHEST FOR PULMONARY EMBOLISM TECHNIQUE: Computerized axial tomographic angiography of the chest and pulmonary arteries was perfor med after the IV injection of iodinated nonionic contrast. The image data was postprocessed using max imum intensity projection (MIP) and 2-dimensional multiplanar reformatted (MPR) techniques. The exami nation is specifically tailored to the evaluation of the pulmonary arteries per clinical request. Au tomated exposure control, adjustment of mA and/or kV according to patient size, or iterative reconstr uction dose optimization techniques were utilized. CPT G9637, 12871 HISTORY: Shortness of breath R06.02, chest pain unspecified R07.9 , COMPARISONS: None . FINDINGS: Heart and pericardium: Normal. Thoracic aorta: There is no thoracic aortic aneurysm or dissection.. Pulmonary vasculature: Normal. No pulmonary emboli. Lymph nodes: No enlarged thoracic lymph nodes. Lungs: There is suboptimal inspiration. There is atelectasis at the lung bases. There are no infiltr ates.. Pleural space: No effusion, thickening, or pneumothorax. Musculoskeletal structures: No significant abnormality. Upper abdominal structures: There are are gallstones.. IMPRESSION: There is no pulmonary embolism or thoracic aortic aneurysm or dissection. There is no ac cocopah lung disease. There is incidental cholelithiasis.. This document is electronically signed by Washington Love MD., June 02 2018 02:41:48 AM ET
[2018-06-02 06:26] VITALS: BP 106/69
== END 2018-06-02 04:07 | disposition home or self-care (01) ==
LOC: ED 16:17
DX: R07.89 Other chest pain (principal); R42 Dizziness and giddiness; M19.90 Unspecified osteoarthritis, unspecified site; F20.9 Schizophrenia, unspecified; M10.9 Gout, unspecified; Z79.899 Other long term (current) drug therapy
CPT/HCPCS: 36415; 71046; 71275; 80053; 84484; 85007; 85025; 85379; 85610; 85730; 93005; 93010; 99285; Q9967

== ENCOUNTER 2018-07-20 22:08 | Emergency (ER) | payer MEDICARE ==
[2018-07-20 23:49] LABS: Basophils # (Auto) 0.1 K/mm3 (0.0-0.1); Basophils % (Auto) 1.1 % (0.0-1.8); Eosinophils # (Auto) 0.1 K/mm3 (0.0-0.4); Eosinophils % (Auto) 2.3 % (0.0-4.3); Hematocrit 37.7 % (35.5-45.6); Hemoglobin 12.7 gm/dl (11.8-15.2); Lymphocytes # (Auto) 1.6 K/mm3 (1.2-5.4); Lymphocytes % (Auto) 30.2 % (13.4-35.0); Mean Corpuscular HGB Conc 34 % (32-34); Mean Corpuscular Volume 92 fl (84-94); Monocytes # (Auto) 0.6 K/mm3 (0.0-0.8); Monocytes % (Auto) 11.3 % (0.0-7.3); Platelet Count 270 K/mm3 (140-440); Red Blood Count 4.12 M/mm3 (3.65-5.03); Red Cell Distribution Width 14.2 % (13.2-15.2)
[2018-07-21 00:18] LABS: BUN/Creatinine Ratio 8; Blood Urea Nitrogen 5 mg/dL (9-20); Calcium 9.6 mg/dL (8.4-10.2); Hemolysis Index 4
[2018-07-21] MEDS ORDERED: ATIVAN IV PRN ×2 (01:27)
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
[2018-07-21 01:45] LABS: Bilirubin,Urine NEG (Negative); Blood,Urine NEG (Negative); Color,Urine Straw (Yellow); Protein,Urine <15 mg/dL mg/dL (Negative); RBC,Urine < 1.0 /HPF (0.0-6.0); Urobilinogen,Urine < 2.0 mg/dL (<2.0); WBC,Urine < 1.0 /HPF (0.0-6.0)
[2018-07-21 01:53] LABS: Amphetamine Screen,Urine PRESUMPTIVE NEGATIVE; Cannabinoid Screen,Urine PRESUMPTIVE NEGATIVE; Cocaine Screen,Urine PRESUMPTIVE NEGATIVE; Methadone Screen,Urine PRESUMPTIVE NEGATIVE; Opiate Screen,Urine PRESUMPTIVE NEGATIVE
[2018-07-21 02:06] LABS: Benzodiazepines Screen,Urine PRESUMPTIVE POSITIVE
[2018-07-21 09:12] VITALS: BP 127/76
[2018-07-21] MEDS ORDERED: MAG-OX PO SCH (10:00)
== END 2018-07-21 12:24 ==
LOC: ED 22:08 → EEVIPCON 22:08 → ED 07-21 12:24
DX: F20.9 Schizophrenia, unspecified (principal); E83.42 Hypomagnesemia; F10.129 Alcohol abuse with intoxication, unspecified
CPT/HCPCS: 36415; 80048; 80307; 81001; 83735; 85025; 96374; 99285; G0480; J2060; 80320

== ENCOUNTER 2019-03-07 20:32 | Emergency (ER) | payer MEDICARE ==
[2019-03-07] MEDS ORDERED: ASPIRIN 325 MG TAB PO ONE (21:01)
--- NOTE | 2019-03-07 21:04 | Event Note ---
ED Screening Note Date of service: 03/07/19 Time: 21:02 ED Screening Note: 53 y o male presents cc of chest pain pt states hes also depressed no SI/HI This initial assessment/diagnostic orders/clinical plan/treatment(s) is/are subject to change based on patients health status, clinical progression and re- assessment by fellow clinical providers in the ED. Further treatment and workup at subsequent clinical providers discretion. Patient/guardian urged not to elope from the ED as their condition may be serious if not clinically assessed and managed. Initial orders include: labs
--- NOTE | 2019-03-07 21:44 | XRay Report ---
CHEST 1 VIEW 9:32 PM INDICATION / CLINICAL INFORMATION: Chest pain for 3 days; cough. COMPARISON: 06/01/2018. FINDINGS: SUPPORT DEVICES: None. HEART / MEDIASTINUM: The heart size and pulmonary vasculature are normal. The aorta is normal in kellen carissa. LUNGS / PLEURA: No significant pulmonary or pleural abnormality. No pneumothorax. ADDITIONAL FINDINGS: No significant additional findings. IMPRESSION: No acute abnormality or significant change. Signer Name: José Yusuf MD Signed: 03/07/2019 9:40 PM Workstation Name: [id number]
[2019-03-07 22:44] LABS: Basophils # (Auto) 0.1 K/mm3 (0.0-0.1); Basophils % (Auto) 1.5 % (0.0-1.8); Eosinophils % (Auto) 1.2 % (0.0-4.3); Hematocrit 39.1 % (35.5-45.6); Hemoglobin 13.9 gm/dl (11.8-15.2); Lymphocytes # (Auto) 1.3 K/mm3 (1.2-5.4); Lymphocytes % (Auto) 37.7 % (13.4-35.0); Mean Corpuscular HGB Conc 36 % (32-34); Mean Corpuscular Volume 92 fl (84-94); Monocytes # (Auto) 0.4 K/mm3 (0.0-0.8); Platelet Count 226 K/mm3 (140-440); Red Blood Count 4.24 M/mm3 (3.65-5.03); Red Cell Distribution Width 18.1 % (13.2-15.2)
[2019-03-07 22:51] LABS: BUN/Creatinine Ratio 7; Blood Urea Nitrogen 4 mg/dL (9-20); Calcium 8.4 mg/dL (8.4-10.2); Hemolysis Index 45
[2019-03-08] MEDS ORDERED: LORazepam 2 MG TAB PO PRN ×2 (03:25)
--- NOTE | 2019-03-08 03:31 | Emergency Department Report ---
ED Psych HPI - General Chief Complaint: Chest Pain Stated Complaint: CHEST PAIN Time Seen by Provider: 03/07/19 22:15 Source: patient Mode of arrival: Ambulatory - History of Present Illness Initial Comments: 53-year-old male with history of schizophrenia presents to ED with complaint of depression. States he is having trouble with his family and wants a mental health evaluation. Patient denies SI, HI. When asked if he is hearing any voices, patient responds, "all the time." Patient will not elaborate on what he is hearing. He also reported chest pain 3 days with a cough. MD Complaint: feels depressed -: unknown Associated Psychiatric Symptoms: auditory hallucinations Improves With: none Worsens With: none Context: significant life stressor Associated Symptoms: denies: shortness of breath, nausea, vomiting Treatments Prior to Arrival: none - Related Data Home Medications Medication Instructions Recorded Confirmed Last Taken Gabapentin 300 mg PO BID 05/25/18 03/08/19 Unknown Previous Rx's Medication Instructions Recorded Last Taken Type Thiamine [Vitamin B-1] 100 mg PO QDAY #30 tablet 07/23/15 05/24/18 13:00 Rx Colchicine 0.6 mg PO DAILY #5 tablet 01/25/16 Unknown Rx Ondansetron [Zofran Odt] 4 mg PO Q8HR PRN #20 tab.rapdis 10/05/16 Unknown Rx levETIRAcetam [Keppra TAB] 500 mg PO BID #30 tablet 10/05/16 Unknown Rx Folic Acid [Folvite] 1 mg PO QDAY #30 tablet 05/27/18 Unknown Rx Multivitamin Tab [Multiple Vitamin 1 each PO QDAY 30 Days tablet 05/27/18 Unknown Rx TAB (Theragran)] Meclizine HCl [Meclizine CHEW] 25 mg PO DAILY #20 tab.chew 06/02/18 Unknown Rx Allergies Allergy/AdvReac Type Severity Reaction Status Date / Time No Known Allergies Allergy Verified 01/02/15 21:46 ED Review of Systems ROS: Stated complaint: CHEST PAIN Other details as noted in HPI Comment: All other systems reviewed and negative Constitutional: denies: chills, fever Respiratory: cough Cardiovascular: chest pain Gastrointestinal: denies: nausea, vomiting Psychiatric: depression, auditory hallucinations. denies: visual hallucinations, homicidal thoughts, suicidal thoughts ED Past Medical Hx - Past Medical History Previous Medical History?: Yes Hx Congestive Heart Failure: No Hx Diabetes: No Hx Arthritis: Yes Hx Seizures: Yes Hx Psychiatric Treatment: Yes (SCHIZOPHRENIA) Hx Asthma: No Hx COPD: No Additional medical history: Gout, Irregular heart beat, alcohol abuse - Social History Smoking Status: Never Smoker Substance Use Type: Alcohol - Medications Home Medications: Home Medications Medication Instructions Recorded Confirmed Last Taken Type Thiamine [Vitamin B-1] 100 mg PO QDAY #30 tablet 07/23/15 03/08/19 05/24/18 13:00 Rx Colchicine 0.6 mg PO DAILY #5 tablet 01/25/16 03/08/19 Unknown Rx Ondansetron [Zofran Odt] 4 mg PO Q8HR PRN #20 tab.rapdis 10/05/16 03/08/19 Unknown Rx levETIRAcetam [Keppra TAB] 500 mg PO BID #30 tablet 10/05/16 03/08/19 Unknown Rx Gabapentin 300 mg PO BID 05/25/18 03/08/19 Unknown History Folic Acid [Folvite] 1 mg PO QDAY #30 tablet 05/27/18 03/08/19 Unknown Rx Multivitamin Tab [Multiple Vitamin 1 each PO QDAY 30 Days tablet 05/27/18 03/08/19 Unknown Rx TAB (Theragran)] Meclizine HCl [Meclizine CHEW] 25 mg PO DAILY #20 tab.chew 06/02/18 03/08/19 Unknown Rx ED Physical Exam - General Limitations: No Limitations General appearance: alert, in no apparent distress, appears intoxicated - Head Head exam: Present: atraumatic, normocephalic - Eye Eye exam: Present: normal appearance, EOMI - ENT ENT exam: Present: mucous membranes moist - Neck Neck exam: Present: normal inspection - Respiratory Respiratory exam: Present: normal lung sounds bilaterally. Absent: respiratory distress - Cardiovascular Cardiovascular Exam: Present: regular rate, normal rhythm - GI/Abdominal GI/Abdominal exam: Present: soft. Absent: distended, tenderness - Extremities Exam Extremities exam: Present: normal inspection - Neurological Exam Neurological exam: Present: alert, oriented X3 - Psychiatric Psychiatric exam: Present: normal affect, normal mood - Skin Skin exam: Present: warm, dry, intact, normal color ED Course Vital Signs 03/07/19 03/07/19 03/08/19 20:55 21:55 00:19 Temperature 98.5 F 97.8 F Pulse Rate 102 H 102 H 94 H Respiratory 18 14 16 Rate Blood Pressure 132/103 Blood Pressure 138/91 136/74 [Left] O2 Sat by Pulse 97 97 98 Oximetry 03/08/19 03/08/19 04:00 10:00 Temperature 97.9 F Pulse Rate 90 115 H Respiratory 16 14 Rate Blood Pressure Blood Pressure 118/73 155/90 [Left] O2 Sat by Pulse 98 97 Oximetry ED Medical Decision Making - Lab Data Result diagrams: 03/07/19 22:29 03/07/19 21:51 - EKG Data -: EKG Interpreted by Mo EKG shows normal: sinus rhythm, axis, intervals, QRS complexes, ST-T waves Rate: tachycardia - EKG Data Interpretation: no acute changes - Radiology Data Radiology results: report reviewed, image reviewed - Medical Decision Making 53-year-old male with history of schizophrenia presents to ED with chest pain and depression. He is unremarkable, no ST changes. Troponin negative. Chest x-ray is normal. Patient states he is depressed his current family situation, which he would not elaborate on. He denies any SI or HI. Alcohol level is 460. Patient is placed on a ED psych hold. Mental health evaluation has been ordered. Critical care attestation.: If time is entered above; I have spent that time in minutes in the direct care of this critically ill patient, excluding procedure time. ED Disposition Clinical Impression: Schizophrenia, Substance abuse Disposition: [id number]/TX-[id number] ANOTHER TYPE HLTHCARE Is pt being admited?: No Condition: Stable Instructions: Schizophrenia (ED), Polysubstance Abuse (ED) Additional Instructions: You are discharged to the geriatric psychiatric floor Referrals: [facility] [Outside] - 3-5 Days PRIMARY CARE, [Primary Care Provider] - 3-5 Days
[2019-03-08 10:00] VITALS: BP 155/90
== END 2019-03-08 12:40 | disposition other institution (70) ==
LOC: ED 20:32
DX: F20.9 Schizophrenia, unspecified (principal); F19.10 Other psychoactive substance abuse, uncomplicated; M19.90 Unspecified osteoarthritis, unspecified site; G43.909 Migraine, unspecified, not intractable, without status migrainosus; Z79.899 Other long term (current) drug therapy
CPT/HCPCS: 36415; 71045; 80048; 80320; 84484; 85025; 93005; 93010; G0480

== ENCOUNTER 2019-03-08 10:04 | Inpatient (IN) | payer MEDICARE ==
[2019-03-08] MEDS ORDERED: traZODone 50 MG TAB PO PRN (10:31)
[2019-03-08] MEDS ORDERED: HALOPERIDOL LACTATE 5 MG/1 ML INJ IM PRN (10:31)
[2019-03-08] MEDS ORDERED: LORazepam 2 MG/ML VIAL IM PRN (10:31)
[2019-03-08] MEDS: OMEGA-3 FATTY ACIDS/FISH OIL 1 GRAM CAP PO SCH ×2 (17:21→21:16)
[2019-03-08] MEDS: ONDANSETRON 4 MG ODT TAB PO PRN (18:04)
[2019-03-08] MEDS ORDERED: chlordiazePOXIDE 25 MG CAP PO PRN (19:18)
[2019-03-08 21:03] LABS: Hematocrit 43.3 % (35.5-45.6); Hemoglobin 14.9 gm/dl (11.8-15.2); Mean Corpuscular HGB Conc 34 % (32-34); Mean Corpuscular Volume 94 fl (84-94); Red Blood Count 4.63 M/mm3 (3.65-5.03); Red Cell Distribution Width 18.1 % (13.2-15.2)
[2019-03-08 21:08] LABS: Basophils % (Auto) 0.5 % (0.0-1.8); Eosinophils % (Auto) 1.1 % (0.0-4.3); Lymphocytes # (Auto) 1.2 K/mm3 (1.2-5.4); Lymphocytes % (Auto) 33.4 % (13.4-35.0); Monocytes # (Auto) 0.4 K/mm3 (0.0-0.8); Platelet Count 217 K/mm3 (140-440)
[2019-03-08] MEDS: levETIRAcetam 500 MG TAB PO SCH (21:16)
[2019-03-08] MEDS: traZODone 50 MG TAB PO SCH ×2 (21:16→21:26)
[2019-03-08] MEDS: GABAPENTIN 300 MG CAP PO SCH (21:16)
[2019-03-08] MEDS: MELATONIN 5 MG TAB PO SCH (21:16)
[2019-03-08] MEDS: chlordiazePOXIDE 25 MG CAP PO PRN (21:17)
[2019-03-08] MEDS: ACETAMINOPHEN 325 MG TAB PO PRN (21:17)
[2019-03-08 21:25] LABS: Albumin 3.5 g/dL (3.9-5); BUN/Creatinine Ratio 8; Blood Urea Nitrogen 4 mg/dL (9-20); Calcium 8.7 mg/dL (8.4-10.2); Hemolysis Index 344; LDL Cholesterol,Direct 70 mg/dL (50-130)
[2019-03-08 21:35] LABS: Chol/HDL Ratio 1.57 %; HDL Cholesterol 124 mg/dL (40-59)
[2019-03-08 21:37] LABS: Alanine Aminotransferase 45 units/L (7-56)
[2019-03-08] MEDS ORDERED: NON-FORMULARY EACH (Gabapentin 300 MG) PO SCH (22:00)
--- NOTE | 2019-03-09 00:39 | History and Physical Report ---
GP History & Physical - History of Present Illness Date of admission: 03/08/19 Date of Examination: 03/09/19 Reason for Admission: Severe anxiety/depression Chief Complaint: Depressed History of Present Illness: The patient is 53 year old with history of Schizophrenia, MDD and Alcohol use disorder NURSE NOTE:[id number] Patient was admitted from ED in wheel chair by the ED staff. Patient presented to the ED for chest pains, auditory hallucinations and stopped taking his Seroquel several months ago. Patient is alert and oriented times three and skin is warm/dry. Patient denies SI/HI and pain score is 0/10. In my interview with the patient this morning, the patient stated that he didn't sleep well and he had a poor appetite. The patient stated that he was having family problems, and started drinking again. The patient stated that he was upset that he had started drinking again. The patient is going through withdrawal from alcohol and has the shakes. The patient stated that he has had s eizures in the past due to withdrawal. The patient stated that he had stopped taking his meds. The patient stated he doesn't hear voices, does not want to harm himself or others, is not paranoid, and has no thoughts of suicide. PAST PSYCHIATRIC HISTORY: Diagnoses: Schizophrenia Suicide attempts or Self-harm behavior: NONE Prior psychiatric hospitalizations: Hospitalized 4 times this year. Substance Abuse history: NONE Previous psychiatric medications tried: Seroquel Outpatient treatment: Family Psychiatric History None reported or documented SOCIAL HISTORY Marital Status: Single Living Arrangements: Mother Employment Status: Unemployed Access to guns/weapons: NONE Education: 10th grade GED Tobacco: NONE Alcohol: A six pack of beer and a 5th daily. History of Abuse: NONE Legal History: NONE REVIEW OF SYSTEMS ROS cannot be reliably obtained from the patient due to her confusion and somnolence. REVIEW OF SYSTEMS Constitutional: Negative for weight loss ENT: Negative for stridor Respiratory: Negative for cough or hemoptysis All other systems reviewed and are negative MSE Orientation: time, place, person Affect: depressed, anxious Mood: congruent with affect Thought content: Patient denies SI/HI Thought Process: Intact Perceptions: none Speech: normal rate and pattern Concentration: focused Motor activity: restless Level of consciousness: alert Memory: Intact Sleep Symptoms: Difficulty Falling Asleep Interaction: cooperative Diagnoses: Schizoaffective disorder, depressive type Alcohol use disorder, severe dependence. Treatment Plan Patient will be admitted for inpatient psychiatric evaluation, medication adjustment and close monitoring The patient's behavior, mood, sleep and appetite will be closely monitored. Patient will be enrolled in individual and group therapeutic sessions and encouraged to attend. Patient will be provided with a safe and structured environment. Patient's physical health needs will be addressed by the Hospitalist. Ho spitalist Consulted Labs including CBC, CMP, Lipid profile and Hemoglobin A1C ordered Social Assessment will be completed and the Vascular Nurse will work with patient and family to ensure a suitable and safe disposition Medication adjustment will be made as clinically indicated The patient agreed on the treatment plan, understood the risk, benefit, alternative treatment, potential consequence of no treatment, and gave informed consent. Legal Status: Voluntary Reaction to Hospitalization: Accepting Medications and Allergies Allergies Allergy/AdvReac Type Severity Reaction Status Date / Time No Known Allergies Allergy Verified 01/02/15 21:46 Home Medications Medication Instructions Recorded Confirmed Last Taken Type Thiamine [Vitamin B-1] 100 mg PO QDAY #30 tablet 07/23/15 03/08/19 05/24/18 13:00 Rx Colchicine 0.6 mg PO DAILY #5 tablet 01/25/16 03/08/19 Unknown Rx Ondansetron [Zofran Odt] 4 mg PO Q8HR PRN #20 tab.rapdis 10/05/16 03/08/19 Unknown Rx levETIRAcetam [Keppra TAB] 500 mg PO BID #30 tablet 10/05/16 03/08/19 Unknown Rx Gabapentin 300 mg PO BID 05/25/18 03/08/19 Unknown History Folic Acid [Folvite] 1 mg PO QDAY #30 tablet 05/27/18 03/08/19 Unknown Rx Multivitamin Tab [Multiple Vitamin 1 each PO QDAY 30 Days tablet 05/27/18 03/08/19 Unknown Rx TAB (Theragran)] Meclizine HCl [Meclizine CHEW] 25 mg PO DAILY #20 tab.chew 06/02/18 03/08/19 Unknown Rx Active Meds: Active Medications Acetaminophen (Tylenol) 650 mg PO Q6H PRN PRN Reason: Pain, Mild (1-3) Last Admin: 03/08/19 21:17 Dose: 650 mg Documented by: Chlordiazepoxide HCl (Librium) 50 mg PO Q1H PRN PRN Reason: CIWA-Ar 8-15 Chlordiazepoxide HCl (Librium) 100 mg PO Q1H PRN PRN Reason: CIWA-Ar 16-25 Last Admin: 03/08/19 21:17 Dose: 100 mg Documented by: Colchicine (Colchicine) 0.6 mg PO QDAY [facility] Fish Oil (Fish Oil) 2,000 mg PO BID [facility] Last Admin: 03/08/19 21:16 Dose: 2,000 mg Documented by: Folic Acid (Folvite) 1 mg PO QDAY [facility] Gabapentin (Gabapentin) 300 mg PO BID [facility] Last Admin: 03/08/19 21:16 Dose: 300 mg Documented by: Haloperidol Lactate (Haldol) 5 mg IM Q6H PRN PRN Reason: Agitation Hydroxyzine Pamoate (Vistaril) 50 mg PO Q6H PRN PRN Reason: Anxiety Levetiracetam (Keppra) 500 mg PO BID [facility] Last Admin: 03/08/19 21:16 Dose: 500 mg Documented by: Lorazepam (Ativan) 2 mg IM Q6H PRN PRN Reason: Agitation Last Admin: 03/08/19 16:50 Dose: 2 mg Documented by: Meclizine HCl (Antivert) 25 mg PO DAILY [facility] Melatonin (Melatonin) 5 mg PO QHS [facility] Last Admin: 03/08/19 21:16 Dose: 5 mg Documented by: Multivitamins (Theragran Tab) 1 each PO QDAY [facility] Ondansetron HCl (Zofran Odt) 4 mg PO Q8HR PRN PRN Reason: Vomiting Last Admin: 03/08/19 18:04 Dose: 4 mg Documented by: Thiamine HCl (Vitamin B-1) 100 mg PO QDAY [facility] Trazodone HCl (Desyrel) 50 mg PO QHS [facility] Last Admin: 03/08/19 21:26 Dose: Not Given Documented by: Trazodone HCl (Desyrel) 50 mg PO QHS PRN PRN Reason: insomnia Results - Results Labs/Vitals: Laboratory Last Values WBC 3.6 K/mm3 (4.5-11.0) L 03/08/19 20:27 RBC 4.63 M/mm3 (3.65-5.03) 03/08/19 20:27 Hgb 14.9 gm/dl (11.8-15.2) 03/08/19 20:27 Hct 43.3 % (35.5-45.6) 03/08/19 20:27 MCV 94 fl (84-94) 03/08/19 20:27 MCH 32 pg (28-32) 03/08/19 20:27 MCHC 34 % (32-34) 03/08/19 20:27 RDW 18.1 % (13.2-15.2) H 03/08/19 20:27 Plt Count 217 K/mm3 (140-440) 03/08/19 20:27 Lymph % (Auto) 33.4 % (13.4-35.0) 03/08/19 20:27 Josephine % (Auto) 11.0 % (0.0-7.3) H 03/08/19 20:27 Eos % (Auto) 1.1 % (0.0-4.3) 03/08/19 20:27 Baso % (Auto) 0.5 % (0.0-1.8) 03/08/19 20:27 Lymph # 1.2 K/mm3 (1.2-5.4) 03/08/19 20:27 Josephine # 0.4 K/mm3 (0.0-0.8) 03/08/19 20:27 Eos # 0.0 K/mm3 (0.0-0.4) 03/08/19 20:27 Baso # 0.0 K/mm3 (0.0-0.1) 03/08/19 20:27 Seg Neutrophils % 54.0 % (40.0-70.0) 03/08/19 20:27 Seg Neutrophils # 2.0 K/mm3 (1.8-7.7) 03/08/19 20:27 Sodium 132 mmol/L (137-145) L 03/08/19 20:27 Potassium 5.4 mmol/L (3.6-5.0) H D 03/08/19 20:27 Chloride 96.6 mmol/L (98-107) L 03/08/19 20:27 Carbon Dioxide 17 mmol/L (22-30) L 03/08/19 20:27 Anion Gap 27 mmol/L 03/08/19 20:27 BUN 4 mg/dL (9-20) L 03/08/19 20:27 Creatinine 0.5 mg/dL (0.8-1.5) L 03/08/19 20:27 Estimated GFR > 60 ml/min 03/08/19 20:27 BUN/Creatinine Ratio 8 % 03/08/19 20:27 Glucose 82 mg/dL (75-100) 03/08/19 20:27 POC Glucose 107 (70-105) H 03/08/19 16:11 Hemoglobin A1c 5.1 % (4-6) 03/08/19 20:27 Calcium 8.7 mg/dL (8.4-10.2) 03/08/19 20:27 Total Bilirubin 0.70 mg/dL (0.1-1.2) 03/08/19 20:27 AST 83 units/L (5-40) H 03/08/19 20:27 ALT 45 units/L (7-56) 03/08/19 20:27 Alkaline Phosphatase 83 units/L (35-129) 03/08/19 20:27 Total Protein 8.9 g/dL (6.3-8.2) H 03/08/19 20:27 Albumin 3.5 g/dL (3.9-5) L 03/08/19 20:27 Albumin/Globulin Ratio 0.6 % 03/08/19 20:27 Triglycerides 47 mg/dL (2-149) 03/08/19 20:27 Cholesterol 195 mg/dL (50-199) 03/08/19 20:27 LDL Cholesterol Direct 70 mg/dL (50-130) 03/08/19 20:27 HDL Cholesterol 124 mg/dL (40-59) H 03/08/19 20:27 Cholesterol/HDL Ratio 1.57 % 03/08/19 20:27 Last Vital Signs Temp 98.6 F 03/08/19 22:00 Pulse 113 H 03/08/19 22:00 Resp 18 03/08/19 22:00 BP 155/102 03/08/19 22:00 Pulse Ox 95 03/08/19 22:00 Physical Examination - Constitutional Vitals: Vital Signs Temp Pulse Resp BP Pulse Ox 98.6 F 113 H 18 155/102 95 03/08/19 22:00 03/08/19 22:00 03/08/19 22:00 03/08/19 22:00 03/08/19 22:00 Temperature -Last 24 Hours Temperature 98.6 F Temperature 98.6 F Mental Status Exam - Vital signs Last Vital Signs Temp 98.6 F 03/08/19 22:00 Pulse 113 H 03/08/19 22:00 Resp 18 03/08/19 22:00 BP 155/102 03/08/19 22:00 Pulse Ox 95 03/08/19 22:00 - Exam Orientation: time Physician Certification - Certification Statement Physician Certification Statement: This is an acknowledgement statement that MAIA DAMASO YAMILA is a 53 year old M who requires inpatient psychiatric admission for treatment which could reasonably be expected to improve the patient's condition for depression Estimated period of time patient will need to remain in the hospital: 7 days Plan for post-hospital care: out-patient care
--- NOTE | 2019-03-09 09:02 | Consultation ---
History of Present Illness - Reason for Consult Consult date: 03/09/19 Medical mx Requesting physician: DUC STILL - History of Present Illness 59-year-old male with history of hypertension, seizure, gout was admitted from ED in wheel chair by the ED staff. Patient presented to the ED for auditory hallucinations and stopped taking his Seroquel several months ago. Patient is alert and oriented times three. Patient denies SI/HI. He is admitted to the [facility] psych unit for further evaluation and management. Hospitalist service has been consulted for medical management. Patient denies any acute issue, no history of fever, short of breath or chest pain. Review of System: Constitutional: no fever, no chills, no weight loss Ears, eyes, nose, mouth and throat: no nasal congestion, no nasal discharge, no sinus pressure, no vision change, no red eye. Neck: No neck pain or rigidity. Cardiovascular: No chest pain, no orthopnea, no palpitations, no leg swelling Respiratory: No shortness of breath, no cough, no congestion, no wheezing Gastrointestinal: no abdominal pain, no nausea, no vomiting Genitourinary : no dysuria, no hematuria Musculoskeletal: no joint swelling or muscle ache Integumentary: no rash, no pruritis Neurological: no parathesias, no numbness, no tingling Endocrine: no cold or heat intolerance, no polyuria or polydipsia Hematologic/Lymphatic: no easy bruising, no easy bleeding, no gland swelling Allergic/Immunologic: no urticaria, no angioedema. Medications and Allergies Allergies Allergy/AdvReac Type Severity Reaction Status Date / Time No Known Allergies Allergy Verified 01/02/15 21:46 Home Medications Medication Instructions Recorded Confirmed Last Taken Type Thiamine [Vitamin B-1] 100 mg PO QDAY #30 tablet 07/23/15 03/08/19 05/24/18 13:00 Rx Colchicine 0.6 mg PO DAILY #5 tablet 01/25/16 03/08/19 Unknown Rx Ondansetron [Zofran Odt] 4 mg PO Q8HR PRN #20 tab.rapdis 10/05/16 03/08/19 Unknown Rx levETIRAcetam [Keppra TAB] 500 mg PO BID #30 tablet 10/05/16 03/08/19 Unknown Rx Gabapentin 300 mg PO BID 05/25/18 03/08/19 Unknown History Folic Acid [Folvite] 1 mg PO QDAY #30 tablet 05/27/18 03/08/19 Unknown Rx Multivitamin Tab [Multiple Vitamin 1 each PO QDAY 30 Days tablet 05/27/18 03/08/19 Unknown Rx TAB (Theragran)] Meclizine HCl [Meclizine CHEW] 25 mg PO DAILY #20 tab.chew 06/02/18 03/08/19 Unknown Rx hydrOXYzine PAMOATE [Vistaril] 50 mg PO Q6H PRN #30 capsule 03/13/19 Unknown Rx traZODone [Desyrel] 50 mg PO QHS PRN #30 tablet 03/13/19 Unknown Rx Active Meds: Active Medications Acetaminophen (Tylenol) 650 mg PO Q6H PRN PRN Reason: Pain, Mild (1-3) Last Admin: 03/08/19 21:17 Dose: 650 mg Documented by: Chlordiazepoxide HCl (Librium) 50 mg PO Q1H PRN PRN Reason: CIWA-Tee 8-15 Chlordiazepoxide HCl (Librium) 100 mg PO Q1H PRN PRN Reason: CIWA-Ar 16-25 Last Admin: 03/08/19 21:17 Dose: 100 mg Documented by: Colchicine (Colchicine) 0.6 mg PO QDAY [facility] Fish Oil (Fish Oil) 2,000 mg PO BID [facility] Last Admin: 03/08/19 21:16 Dose: 2,000 mg Documented by: Folic Acid (Folvite) 1 mg PO QDAY [facility] Gabapentin (Gabapentin) 300 mg PO BID [facility] Last Admin: 03/08/19 21:16 Dose: 300 mg Documented by: Haloperidol Lactate (Haldol) 5 mg IM Q6H PRN PRN Reason: Agitation Hydroxyzine Pamoate (Vistaril) 50 mg PO Q6H PRN PRN Reason: Anxiety Levetiracetam (Keppra) 500 mg PO BID [facility] Last Admin: 03/08/19 21:16 Dose: 500 mg Documented by: Lorazepam (Ativan) 2 mg IM Q6H PRN PRN Reason: Agitation Last Admin: 03/08/19 16:50 Dose: 2 mg Documented by: Meclizine HCl (Antivert) 25 mg PO DAILY [facility] Melatonin (Melatonin) 5 mg PO QHS [facility] Last Admin: 03/08/19 21:16 Dose: 5 mg Documented by: Multivitamins (Theragran Tab) 1 each PO QDAY [facility] Ondansetron HCl (Zofran Odt) 4 mg PO Q8HR PRN PRN Reason: Vomiting Last Admin: 03/08/19 18:04 Dose: 4 mg Documented by: Thiamine HCl (Vitamin B-1) 100 mg PO QDAY [facility] Trazodone HCl (Desyrel) 50 mg PO QHS [facility] Last Admin: 03/08/19 21:26 Dose: Not Given Documented by: Trazodone HCl (Desyrel) 50 mg PO QHS PRN PRN Reason: insomnia Exam - Physical Exam Narrative exam: GENERAL: well-developed and well-nourished -[place] male lying on bed appeared to be in no discomfort. HEENT: Normocephalic. Atraumatic. No conjunctival congestion or icterus. Patient has moist mucous membranes. NECK: Supple. Trachea midline. CHEST/LUNGS: Clear to auscultated bilaterally, breathing nonlabored. No wheezes crackles or rhonchi. HEART/CARDIOVASCULAR: Regular in rate and rhythm. S1 and S2 positive. ABDOMEN: Abdomen is soft, nontender. Patient has normal bowel sounds. SKIN: There is no rash. Warm and dry. NEURO: No focal motor deficit. Follows command. MUSCULOSKELETAL: No joint effusion or tenderness. EXTRIMITY: No edema, no cyanosis or clubbing. PSYCH: Cooperative. - Constitutional Vitals: Temp Pulse Resp BP Pulse Ox 98.6 F 113 H 18 155/102 95 03/08/19 22:00 03/08/19 22:00 03/08/19 22:00 03/08/19 22:00 03/08/19 22:00 Results - Labs CBC & Chem 7: 03/08/19 20:27 03/10/19 10:55 Labs: Abnormal lab results 03/08/19 03/08/19 03/08/19 Range/Units 16:11 20:27 20:27 WBC 3.6 L (4.5-11.0) K/mm3 RDW 18.1 H (13.2-15.2) % [place] % (Auto) 11.0 H (0.0-7.3) % Sodium 132 L (137-145) mmol/L Potassium 5.4 H D (3.6-5.0) mmol/L Chloride 96.6 L (98-107) mmol/L Carbon Dioxide 17 L (22-30) mmol/L BUN 4 L (9-20) mg/dL Creatinine 0.5 L (0.8-1.5) mg/dL POC Glucose 107 H (70-105) AST 83 H (5-40) units/L Total Protein 8.9 H (6.3-8.2) g/dL Albumin 3.5 L (3.9-5) g/dL HDL Cholesterol 124 H (40-59) mg/dL Assessment and Plan Paranoia - Management per primary Hyperkalemia - order kayexalate, repeat BMP in the am HTN, stable History of seizure History of gout - Continue current home medications
[2019-03-09] MEDS ORDERED: MECLIZINE HCL 25 MG PO SCH (10:00)
[2019-03-09] MEDS ORDERED: COLCHICINE 0.6 MG PO SCH (10:00)
[2019-03-09] MEDS: chlordiazePOXIDE 25 MG CAP PO PRN (10:47)
[2019-03-09] MEDS: OMEGA-3 FATTY ACIDS/FISH OIL 1 GRAM CAP PO SCH ×2 (10:48→21:22)
[2019-03-09] MEDS: GABAPENTIN 300 MG CAP PO SCH ×2 (10:48→21:23)
[2019-03-09] MEDS: COLCHICINE 0.6 MG CAP PO SCH (10:49)
[2019-03-09] MEDS: levETIRAcetam 500 MG TAB PO SCH ×2 (10:49→21:22)
[2019-03-09] MEDS: FOLIC ACID 1 MG TAB PO SCH (10:49)
[2019-03-09] MEDS: MECLIZINE 25 MG TAB PO SCH (10:49)
[2019-03-09] MEDS: ONDANSETRON 4 MG ODT TAB PO PRN (11:46)
[2019-03-09] MEDS: THIAMINE 100 MG TAB PO SCH (12:58)
[2019-03-09] MEDS: MULTIVITAMINS ,THERAPEUTIC TAB PO SCH (12:59)
[2019-03-09] MEDS: SODIUM POLYSTYRENE 15 GM/60 ML ORAL LIQD PO SCH (18:24)
[2019-03-09] MEDS: traZODone 50 MG TAB PO SCH (21:22)
[2019-03-09] MEDS: MELATONIN 5 MG TAB PO SCH (21:24)
[2019-03-10] MEDS: SODIUM POLYSTYRENE 15 GM/60 ML ORAL LIQD PO SCH (00:14)
--- NOTE | 2019-03-10 07:18 | Progress Note ---
Subjective Date of service: 03/11/19 Subjective Comment: I interviewed the patient this morning. Medical records reviewed and patient's progress was discussed with unit staff. Nursing staff reports that patient NURSE NOTES: In my interview with the patient this morning, the patient states he slept on and off last night. He says his appetite is poor but getting better. He denies SI/HI at this time and denies hallucinations of any kind. Mr. Guzman states his last drink was three days ago and he has started having shakes, HUNG, and N/V. Review of Symptoms: Constitutional: Negative for weight loss ENT: Negative for stridor Respiratory: Negative for cough or hemoptysis All other systems reviewed and are negative MSE Appearance: Wearing appropriate clothing. Good hygiene Behavior: Pleasant and cooperative. Mood: "Good" Affect: Congruent with stated mood Thought Process: Goal directed Speech: Normal rate. Thought Content Harmfulness Denies SI/HI Hallucinations: patient denies Delusions: none elicited Consciousness: alert. Cognition/Memory: normal. Insight/Judgment: Limited. Treatment Plan Due to the psychiatric conditions and treatment listed in the Assessment and Plan - the patient requires continued hospitalization. Will continue inpatient treatment to allow for medication adjustment and monitoring. Will continue q15 min safety checks. Will encourage the use of environmental modifications and non-pharmacologic approaches for the management of behavioral and psychological symptoms. Medication adjustment made today: --- Will continue current psych medications Monitor for medication side effects. The patient will continue on medications for physical illnesses, and Hospitalist will closely monitor these Continue intensive physical and occupational therapies. Monitor patient's mood, sleep, appetite, and behavior closely. Encourage patient to participate in individual and group therapeutic sessions on the [place]. Will provide a safe and therapeutic environment for patient. Estimated length of stay --- daysN Medications and Allergies Allergies Allergy/AdvReac Type Severity Reaction Status Date / Time No Known Allergies Allergy Verified 01/02/15 21:46 Home Medications Medication Instructions Recorded Confirmed Last Taken Type Thiamine [Vitamin B-1] 100 mg PO QDAY #30 tablet 07/23/15 03/08/19 05/24/18 13:00 Rx Colchicine 0.6 mg PO DAILY #5 tablet 01/25/16 03/08/19 Unknown Rx Ondansetron [Zofran Odt] 4 mg PO Q8HR PRN #20 tab.rapdis 10/05/16 03/08/19 Unknown Rx levETIRAcetam [Keppra TAB] 500 mg PO BID #30 tablet 10/05/16 03/08/19 Unknown Rx Gabapentin 300 mg PO BID 05/25/18 03/08/19 Unknown History Folic Acid [Folvite] 1 mg PO QDAY #30 tablet 05/27/18 03/08/19 Unknown Rx Multivitamin Tab [Multiple Vitamin 1 each PO QDAY 30 Days tablet 05/27/18 03/08/19 Unknown Rx TAB (Theragran)] Meclizine HCl [Meclizine CHEW] 25 mg PO DAILY #20 tab.chew 06/02/18 03/08/19 Unknown Rx Active Meds: Active Medications Acetaminophen (Tylenol) 650 mg PO Q6H PRN PRN Reason: Pain, Mild (1-3) Last Admin: 03/08/19 21:17 Dose: 650 mg Documented by: Chlordiazepoxide HCl (Librium) 50 mg PO Q1H PRN PRN Reason: GENNA-Tee 8-15 Last Admin: 03/09/19 21:24 Dose: 50 mg Documented by: Chlordiazepoxide HCl (Librium) 100 mg PO Q1H PRN PRN Reason: GENNA-Tee 16-25 Last Admin: 03/09/19 10:47 Dose: 100 mg Documented by: Colchicine (Colchicine) 0.6 mg PO QDAY [facility] Last Admin: 03/09/19 10:49 Dose: 0.6 mg Documented by: Fish Oil (Fish Oil) 2,000 mg PO BID [facility] Last Admin: 03/09/19 21:22 Dose: 2,000 mg Documented by: Folic Acid (Folvite) 1 mg PO QDAY [facility] Last Admin: 03/09/19 10:49 Dose: 1 mg Documented by: Gabapentin (Gabapentin) 300 mg PO BID [facility] Last Admin: 03/09/19 21:23 Dose: 300 mg Documented by: Haloperidol Lactate (Haldol) 5 mg IM Q6H PRN PRN Reason: Agitation Hydroxyzine Pamoate (Vistaril) 50 mg PO Q6H PRN PRN Reason: Anxiety Levetiracetam (Keppra) 500 mg PO BID [facility] Last Admin: 03/09/19 21:22 Dose: 500 mg Documented by: Lorazepam (Ativan) 2 mg IM Q6H PRN PRN Reason: Agitation Last Admin: 03/08/19 16:50 Dose: 2 mg Documented by: Meclizine HCl (Antivert) 25 mg PO DAILY [facility] Last Admin: 03/09/19 10:49 Dose: 25 mg Documented by: Melatonin (Melatonin) 5 mg PO QHS [facility] Last Admin: 03/09/19 21:24 Dose: 5 mg Documented by: Multivitamins (Theragran Tab) 1 each PO QDAY [facility] Last Admin: 03/09/19 12:59 Dose: 1 each Documented by: Ondansetron HCl (Zofran Odt) 4 mg PO Q8HR PRN PRN Reason: Vomiting Last Admin: 03/09/19 11:46 Dose: 4 mg Documented by: Thiamine HCl (Vitamin B-1) 100 mg PO QDAY [facility] Last Admin: 03/09/19 12:58 Dose: 100 mg Documented by: Trazodone HCl (Desyrel) 50 mg PO QHS [facility] Last Admin: 03/09/19 21:22 Dose: 50 mg Documented by: Trazodone HCl (Desyrel) 50 mg PO QHS PRN PRN Reason: insomnia Last Admin: 03/10/19 00:14 Dose: 50 mg Documented by: Results - Results Labs/Vitals: Laboratory Last Values WBC 3.6 K/mm3 (4.5-11.0) L 03/08/19 20:27 RBC 4.63 M/mm3 (3.65-5.03) 03/08/19 20:27 Hgb 14.9 gm/dl (11.8-15.2) 03/08/19 20:27 Hct 43.3 % (35.5-45.6) 03/08/19 20:27 MCV 94 fl (84-94) 03/08/19 20:27 MCH 32 pg (28-32) 03/08/19 20:27 MCHC 34 % (32-34) 03/08/19 20:27 RDW 18.1 % (13.2-15.2) H 03/08/19 20:27 Plt Count 217 K/mm3 (140-440) 03/08/19 20:27 Lymph % (Auto) 33.4 % (13.4-35.0) 03/08/19 20:27 [place] % (Auto) 11.0 % (0.0-7.3) H 03/08/19 20:27 Eos % (Auto) 1.1 % (0.0-4.3) 03/08/19 20:27 Baso % (Auto) 0.5 % (0.0-1.8) 03/08/19 20:27 Lymph # 1.2 K/mm3 (1.2-5.4) 03/08/19 20:27 [place] # 0.4 K/mm3 (0.0-0.8) 03/08/19 20:27 Eos # 0.0 K/mm3 (0.0-0.4) 03/08/19 20:27 Baso # 0.0 K/mm3 (0.0-0.1) 03/08/19 20:27 Seg Neutrophils % 54.0 % (40.0-70.0) 03/08/19 20:27 Seg Neutrophils # 2.0 K/mm3 (1.8-7.7) 03/08/19 20:27 Sodium 132 mmol/L (137-145) L 03/08/19 20:27 Potassium 5.4 mmol/L (3.6-5.0) H D 03/08/19 20:27 Chloride 96.6 mmol/L (98-107) L 03/08/19 20:27 Carbon Dioxide 17 mmol/L (22-30) L 03/08/19 20:27 Anion Gap 27 mmol/L 03/08/19 20:27 BUN 4 mg/dL (9-20) L 03/08/19 20:27 Creatinine 0.5 mg/dL (0.8-1.5) L 03/08/19 20:27 Estimated GFR > 60 ml/min 03/08/19 20:27 BUN/Creatinine Ratio 8 % 03/08/19 20:27 Glucose 82 mg/dL (75-100) 03/08/19 20:27 POC Glucose 107 (70-105) H 03/08/19 16:11 Hemoglobin A1c 5.1 % (4-6) 03/08/19 20:27 Calcium 8.7 mg/dL (8.4-10.2) 03/08/19 20:27 Total Bilirubin 0.70 mg/dL (0.1-1.2) 03/08/19 20:27 AST 83 units/L (5-40) H 03/08/19 20:27 ALT 45 units/L (7-56) 03/08/19 20:27 Alkaline Phosphatase 83 units/L (35-129) 03/08/19 20:27 Total Protein 8.9 g/dL (6.3-8.2) H 03/08/19 20:27 Albumin 3.5 g/dL (3.9-5) L 03/08/19 20:27 Albumin/Globulin Ratio 0.6 % 03/08/19 20:27 Triglycerides 47 mg/dL (2-149) 03/08/19 20:27 Cholesterol 195 mg/dL (50-199) 03/08/19 20:27 LDL Cholesterol Direct 70 mg/dL (50-130) 03/08/19 20:27 HDL Cholesterol 124 mg/dL (40-59) H 03/08/19 20:27 Cholesterol/HDL Ratio 1.57 % 03/08/19 20:27 Last Vital Signs Temp 99.0 F 03/09/19 19:21 Pulse 112 H 03/09/19 19:21 Resp 20 03/09/19 19:21 BP 138/90 03/09/19 19:21 Pulse Ox 93 03/09/19 19:21
--- NOTE | 2019-03-10 09:12 | Progress Note ---
Subjective Date of service: 03/10/19 Subjective Comment: I interviewed the patient this morning. Medical records reviewed and patient's progress was discussed with unit staff. Nursing staff reports that patient NURSE NOTES: In my interview with the patient this morning, the patient states he slept on and off last night. He says his appetite is poor but getting better. He denies SI/HI at this time and denies hallucinations of any kind. Mr. Guzman states his last drink was three days ago and he has started having shakes, HUNG, and N/V. Review of Symptoms: Constitutional: Negative for weight loss ENT: Negative for stridor Respiratory: Negative for cough or hemoptysis All other systems reviewed and are negative MSE Appearance: Wearing appropriate clothing. Good hygiene Behavior: Pleasant and cooperative. Mood: "Good" Affect: Congruent with stated mood Thought Process: Goal directed Speech: Normal rate. Thought Content Harmfulness Denies SI/HI Hallucinations: patient denies Delusions: none elicited Consciousness: alert. Cognition/Memory: normal. Insight/Judgment: Limited. Treatment Plan Due to the psychiatric conditions and treatment listed in the Assessment and Plan - the patient requires continued hospitalization. Will continue inpatient treatment to allow for medication adjustment and monitoring. Will continue q15 min safety checks. Will encourage the use of environmental modifications and non-pharmacologic approaches for the management of behavioral and psychological symptoms. Medication adjustment made today: --- Will continue current psych medications Monitor for medication side effects. The patient will continue on medications for physical illnesses, and Hospitalist will closely monitor these Continue intensive physical and occupational therapies. Monitor patient's mood, sleep, appetite, and behavior closely. Encourage patient to participate in individual and group therapeutic sessions on the [place]. Will provide a safe and therapeutic environment for patient. Estimated length of stay --- daysN Medications and Allergies Allergies Allergy/AdvReac Type Severity Reaction Status Date / Time No Known Allergies Allergy Verified 01/02/15 21:46 Home Medications Medication Instructions Recorded Confirmed Last Taken Type Thiamine [Vitamin B-1] 100 mg PO QDAY #30 tablet 07/23/15 03/08/19 05/24/18 13:00 Rx Colchicine 0.6 mg PO DAILY #5 tablet 01/25/16 03/08/19 Unknown Rx Ondansetron [Zofran Odt] 4 mg PO Q8HR PRN #20 tab.rapdis 10/05/16 03/08/19 Unknown Rx levETIRAcetam [Keppra TAB] 500 mg PO BID #30 tablet 10/05/16 03/08/19 Unknown Rx Gabapentin 300 mg PO BID 05/25/18 03/08/19 Unknown History Folic Acid [Folvite] 1 mg PO QDAY #30 tablet 05/27/18 03/08/19 Unknown Rx Multivitamin Tab [Multiple Vitamin 1 each PO QDAY 30 Days tablet 05/27/18 03/08/19 Unknown Rx TAB (Theragran)] Meclizine HCl [Meclizine CHEW] 25 mg PO DAILY #20 tab.chew 06/02/18 03/08/19 Unknown Rx Active Meds: Active Medications Acetaminophen (Tylenol) 650 mg PO Q6H PRN PRN Reason: Pain, Mild (1-3) Last Admin: 03/08/19 21:17 Dose: 650 mg Documented by: Chlordiazepoxide HCl (Librium) 50 mg PO Q1H PRN PRN Reason: GENNA-Tee 8-15 Last Admin: 03/09/19 21:24 Dose: 50 mg Documented by: Chlordiazepoxide HCl (Librium) 100 mg PO Q1H PRN PRN Reason: GENNA-Tee 16-25 Last Admin: 03/09/19 10:47 Dose: 100 mg Documented by: Colchicine (Colchicine) 0.6 mg PO QDAY [facility] Last Admin: 03/09/19 10:49 Dose: 0.6 mg Documented by: Fish Oil (Fish Oil) 2,000 mg PO BID [facility] Last Admin: 03/09/19 21:22 Dose: 2,000 mg Documented by: Folic Acid (Folvite) 1 mg PO QDAY [facility] Last Admin: 03/09/19 10:49 Dose: 1 mg Documented by: Gabapentin (Gabapentin) 300 mg PO BID [facility] Last Admin: 03/09/19 21:23 Dose: 300 mg Documented by: Haloperidol Lactate (Haldol) 5 mg IM Q6H PRN PRN Reason: Agitation Hydroxyzine Pamoate (Vistaril) 50 mg PO Q6H PRN PRN Reason: Anxiety Levetiracetam (Keppra) 500 mg PO BID [facility] Last Admin: 03/09/19 21:22 Dose: 500 mg Documented by: Lorazepam (Ativan) 2 mg IM Q6H PRN PRN Reason: Agitation Last Admin: 03/08/19 16:50 Dose: 2 mg Documented by: Meclizine HCl (Antivert) 25 mg PO DAILY [facility] Last Admin: 03/09/19 10:49 Dose: 25 mg Documented by: Melatonin (Melatonin) 5 mg PO QHS [facility] Last Admin: 03/09/19 21:24 Dose: 5 mg Documented by: Multivitamins (Theragran Tab) 1 each PO QDAY [facility] Last Admin: 03/09/19 12:59 Dose: 1 each Documented by: Ondansetron HCl (Zofran Odt) 4 mg PO Q8HR PRN PRN Reason: Vomiting Last Admin: 03/09/19 11:46 Dose: 4 mg Documented by: Thiamine HCl (Vitamin B-1) 100 mg PO QDAY [facility] Last Admin: 03/09/19 12:58 Dose: 100 mg Documented by: Trazodone HCl (Desyrel) 50 mg PO QHS [facility] Last Admin: 03/09/19 21:22 Dose: 50 mg Documented by: Trazodone HCl (Desyrel) 50 mg PO QHS PRN PRN Reason: insomnia Last Admin: 03/10/19 00:14 Dose: 50 mg Documented by: Results - Results Labs/Vitals: Laboratory Last Values WBC 3.6 K/mm3 (4.5-11.0) L 03/08/19 20:27 RBC 4.63 M/mm3 (3.65-5.03) 03/08/19 20:27 Hgb 14.9 gm/dl (11.8-15.2) 03/08/19 20:27 Hct 43.3 % (35.5-45.6) 03/08/19 20:27 MCV 94 fl (84-94) 03/08/19 20:27 MCH 32 pg (28-32) 03/08/19 20:27 MCHC 34 % (32-34) 03/08/19 20:27 RDW 18.1 % (13.2-15.2) H 03/08/19 20:27 Plt Count 217 K/mm3 (140-440) 03/08/19 20:27 Lymph % (Auto) 33.4 % (13.4-35.0) 03/08/19 20:27 [place] % (Auto) 11.0 % (0.0-7.3) H 03/08/19 20:27 Eos % (Auto) 1.1 % (0.0-4.3) 03/08/19 20:27 Baso % (Auto) 0.5 % (0.0-1.8) 03/08/19 20:27 Lymph # 1.2 K/mm3 (1.2-5.4) 03/08/19 20:27 [place] # 0.4 K/mm3 (0.0-0.8) 03/08/19 20:27 Eos # 0.0 K/mm3 (0.0-0.4) 03/08/19 20:27 Baso # 0.0 K/mm3 (0.0-0.1) 03/08/19 20:27 Seg Neutrophils % 54.0 % (40.0-70.0) 03/08/19 20:27 Seg Neutrophils # 2.0 K/mm3 (1.8-7.7) 03/08/19 20:27 Sodium 132 mmol/L (137-145) L 03/08/19 20:27 Potassium 5.4 mmol/L (3.6-5.0) H D 03/08/19 20:27 Chloride 96.6 mmol/L (98-107) L 03/08/19 20:27 Carbon Dioxide 17 mmol/L (22-30) L 03/08/19 20:27 Anion Gap 27 mmol/L 03/08/19 20:27 BUN 4 mg/dL (9-20) L 03/08/19 20:27 Creatinine 0.5 mg/dL (0.8-1.5) L 03/08/19 20:27 Estimated GFR > 60 ml/min 03/08/19 20:27 BUN/Creatinine Ratio 8 % 03/08/19 20:27 Glucose 82 mg/dL (75-100) 03/08/19 20:27 POC Glucose 107 (70-105) H 03/08/19 16:11 Hemoglobin A1c 5.1 % (4-6) 03/08/19 20:27 Calcium 8.7 mg/dL (8.4-10.2) 03/08/19 20:27 Total Bilirubin 0.70 mg/dL (0.1-1.2) 03/08/19 20:27 AST 83 units/L (5-40) H 03/08/19 20:27 ALT 45 units/L (7-56) 03/08/19 20:27 Alkaline Phosphatase 83 units/L (35-129) 03/08/19 20:27 Total Protein 8.9 g/dL (6.3-8.2) H 03/08/19 20:27 Albumin 3.5 g/dL (3.9-5) L 03/08/19 20:27 Albumin/Globulin Ratio 0.6 % 03/08/19 20:27 Triglycerides 47 mg/dL (2-149) 03/08/19 20:27 Cholesterol 195 mg/dL (50-199) 03/08/19 20:27 LDL Cholesterol Direct 70 mg/dL (50-130) 03/08/19 20:27 HDL Cholesterol 124 mg/dL (40-59) H 03/08/19 20:27 Cholesterol/HDL Ratio 1.57 % 03/08/19 20:27 Last Vital Signs Temp 99.0 F 03/09/19 19:21 Pulse 112 H 03/09/19 19:21 Resp 20 03/09/19 19:21 BP 138/90 03/09/19 19:21 Pulse Ox 93 03/09/19 19:21
[2019-03-10] MEDS: OMEGA-3 FATTY ACIDS/FISH OIL 1 GRAM CAP PO SCH ×2 (09:20→21:36)
[2019-03-10] MEDS: GABAPENTIN 300 MG CAP PO SCH ×2 (09:20→21:37)
[2019-03-10] MEDS: MULTIVITAMINS ,THERAPEUTIC TAB PO SCH (09:21)
[2019-03-10] MEDS: MECLIZINE 25 MG TAB PO SCH (09:21)
[2019-03-10] MEDS: THIAMINE 100 MG TAB PO SCH (09:21)
[2019-03-10] MEDS: FOLIC ACID 1 MG TAB PO SCH (09:21)
[2019-03-10] MEDS: levETIRAcetam 500 MG TAB PO SCH ×2 (09:21→21:36)
[2019-03-10] MEDS: COLCHICINE 0.6 MG CAP PO SCH (09:22)
[2019-03-10 11:40] LABS: BUN/Creatinine Ratio 17; Blood Urea Nitrogen 10 mg/dL (9-20); Calcium 8.8 mg/dL (8.4-10.2); Hemolysis Index 30
[2019-03-10] MEDS: ACETAMINOPHEN 325 MG TAB PO PRN (13:11)
--- NOTE | 2019-03-10 15:04 | Event Note ---
Date: 03/10/19 K level normalized, cont to monitor.
[2019-03-10] MEDS: traZODone 50 MG TAB PO SCH (21:36)
[2019-03-10] MEDS: MELATONIN 5 MG TAB PO SCH (21:36)
--- NOTE | 2019-03-11 09:08 | Progress Note ---
Subjective Date of service: 03/11/19 Principal diagnosis: Schizoaffective Disorder Subjective Comment: I interviewed the patient this morning. Medical records reviewed and patient's progress was discussed with unit staff. Nursing states patient in day room interacting with peers. Denies pain. Denies SI and HI. SUBJECTIVE In my interview with the patient this morning, the patient is sitting in a chair watching t.v. in the day room. He is pleasant and cooperative. Mr. Guzman states that he's in a good mood, and doing better. He denies SI/HI or hallucinations of any kind. He says he slept "very well last night." Mr. Guzman says his appetite is "the best." Review of Symptoms: Constitutional: Negative for weight loss ENT: Negative for stridor Respiratory: Negative for cough or hemoptysis All other systems reviewed and are negative MSE Appearance: Wearing appropriate clothing. Good hygiene Behavior: Pleasant and cooperative. Mood: "Good and doing better" Affect: Congruent with stated mood Thought Process: Goal directed Speech: Normal rate. Thought Content Harmfulness Denies SI/HI Hallucinations: patient denies Delusions: none elicited Consciousness: alert. Cognition/Memory: normal. Insight/Judgment: Limited. Treatment Plan Due to the psychiatric conditions and treatment listed in the Assessment and Plan - the patient requires continued hospitalization. Will continue inpatient treatment to allow for medication adjustment and monitoring. Will continue q15 min safety checks. Will encourage the use of environmental modifications and non-pharmacologic approaches for the management of behavioral and psychological symptoms. Medication adjustment made today: --- Will continue current psych medications Monitor for medication side effects. The patient will continue on medications for physical illnesses, and Hospitalist will closely monitor these Continue intensive physical and occupational therapies. Monitor patient's mood, sleep, appetite, and behavior closely. Encourage patient to participate in individual and group therapeutic sessions on the [place]. Will provide a safe and therapeutic environment for patient. Estimated length of stay --- daysN Medications and Allergies Allergies Allergy/AdvReac Type Severity Reaction Status Date / Time No Known Allergies Allergy Verified 01/02/15 21:46 Home Medications Medication Instructions Recorded Confirmed Last Taken Type Thiamine [Vitamin B-1] 100 mg PO QDAY #30 tablet 07/23/15 03/08/19 05/24/18 13:00 Rx Colchicine 0.6 mg PO DAILY #5 tablet 01/25/16 03/08/19 Unknown Rx Ondansetron [Zofran Odt] 4 mg PO Q8HR PRN #20 tab.rapdis 10/05/16 03/08/19 Unknown Rx levETIRAcetam [Keppra TAB] 500 mg PO BID #30 tablet 10/05/16 03/08/19 Unknown Rx Gabapentin 300 mg PO BID 05/25/18 03/08/19 Unknown History Folic Acid [Folvite] 1 mg PO QDAY #30 tablet 05/27/18 03/08/19 Unknown Rx Multivitamin Tab [Multiple Vitamin 1 each PO QDAY 30 Days tablet 05/27/18 03/08/19 Unknown Rx TAB (Theragran)] Meclizine HCl [Meclizine CHEW] 25 mg PO DAILY #20 tab.chew 06/02/18 03/08/19 Unknown Rx Active Meds: Active Medications Acetaminophen (Tylenol) 650 mg PO Q6H PRN PRN Reason: Pain, Mild (1-3) Last Admin: 03/10/19 13:11 Dose: 650 mg Documented by: Chlordiazepoxide HCl (Librium) 50 mg PO Q1H PRN PRN Reason: Rena 8-15 Last Admin: 03/09/19 21:24 Dose: 50 mg Documented by: Chlordiazepoxide HCl (Librium) 100 mg PO Q1H PRN PRN Reason: Rena 16-25 Last Admin: 03/09/19 10:47 Dose: 100 mg Documented by: Colchicine (Colchicine) 0.6 mg PO QDAY [facility] Last Admin: 03/10/19 09:22 Dose: 0.6 mg Documented by: Fish Oil (Fish Oil) 2,000 mg PO BID [facility] Last Admin: 03/10/19 21:36 Dose: 2,000 mg Documented by: Folic Acid (Folvite) 1 mg PO QDAY [facility] Last Admin: 03/10/19 09:21 Dose: 1 mg Documented by: Gabapentin (Gabapentin) 300 mg PO BID [facility] Last Admin: 03/10/19 21:37 Dose: 300 mg Documented by: Haloperidol Lactate (Haldol) 5 mg IM Q6H PRN PRN Reason: Agitation Hydroxyzine Pamoate (Vistaril) 50 mg PO Q6H PRN PRN Reason: Anxiety Levetiracetam (Keppra) 500 mg PO BID [facility] Last Admin: 03/10/19 21:36 Dose: 500 mg Documented by: Lorazepam (Ativan) 2 mg IM Q6H PRN PRN Reason: Agitation Last Admin: 03/08/19 16:50 Dose: 2 mg Documented by: Meclizine HCl (Antivert) 25 mg PO DAILY [facility] Last Admin: 03/10/19 09:21 Dose: 25 mg Documented by: Melatonin (Melatonin) 5 mg PO QHS [facility] Last Admin: 03/10/19 21:36 Dose: 5 mg Documented by: Multivitamins (Theragran Tab) 1 each PO QDAY [facility] Last Admin: 03/10/19 09:21 Dose: 1 each Documented by: Ondansetron HCl (Zofran Odt) 4 mg PO Q8HR PRN PRN Reason: Vomiting Last Admin: 03/09/19 11:46 Dose: 4 mg Documented by: Thiamine HCl (Vitamin B-1) 100 mg PO QDAY [facility] Last Admin: 03/10/19 09:21 Dose: 100 mg Documented by: Trazodone HCl (Desyrel) 50 mg PO QHS [facility] Last Admin: 03/10/19 21:36 Dose: 50 mg Documented by: Trazodone HCl (Desyrel) 50 mg PO QHS PRN PRN Reason: insomnia Last Admin: 03/10/19 00:14 Dose: 50 mg Documented by: Results - Results Labs/Vitals: Laboratory Last Values WBC 3.6 K/mm3 (4.5-11.0) L 03/08/19 20:27 RBC 4.63 M/mm3 (3.65-5.03) 03/08/19 20:27 Hgb 14.9 gm/dl (11.8-15.2) 03/08/19 20:27 Hct 43.3 % (35.5-45.6) 03/08/19 20:27 MCV 94 fl (84-94) 03/08/19 20:27 MCH 32 pg (28-32) 03/08/19 20:27 MCHC 34 % (32-34) 03/08/19 20:27 RDW 18.1 % (13.2-15.2) H 03/08/19 20:27 Plt Count 217 K/mm3 (140-440) 03/08/19 20:27 Lymph % (Auto) 33.4 % (13.4-35.0) 03/08/19 20:27 [place] % (Auto) 11.0 % (0.0-7.3) H 03/08/19 20:27 Eos % (Auto) 1.1 % (0.0-4.3) 03/08/19 20:27 Baso % (Auto) 0.5 % (0.0-1.8) 03/08/19 20:27 Lymph # 1.2 K/mm3 (1.2-5.4) 03/08/19 20:27 [place] # 0.4 K/mm3 (0.0-0.8) 03/08/19 20:27 Eos # 0.0 K/mm3 (0.0-0.4) 03/08/19 20:27 Baso # 0.0 K/mm3 (0.0-0.1) 03/08/19 20:27 Seg Neutrophils % 54.0 % (40.0-70.0) 03/08/19 20:27 Seg Neutrophils # 2.0 K/mm3 (1.8-7.7) 03/08/19 20:27 Sodium 136 mmol/L (137-145) L 03/10/19 10:55 Potassium 3.7 mmol/L (3.6-5.0) D 03/10/19 10:55 Chloride 95.9 mmol/L (98-107) L 03/10/19 10:55 Carbon Dioxide 21 mmol/L (22-30) L 03/10/19 10:55 Anion Gap 23 mmol/L 03/10/19 10:55 BUN 10 mg/dL (9-20) 03/10/19 10:55 Creatinine 0.6 mg/dL (0.8-1.5) L 03/10/19 10:55 Estimated GFR > 60 ml/min 03/10/19 10:55 BUN/Creatinine Ratio 17 % 03/10/19 10:55 Glucose 86 mg/dL (75-100) 03/10/19 10:55 POC Glucose 107 (70-105) H 03/08/19 16:11 Hemoglobin A1c 5.1 % (4-6) 03/08/19 20:27 Calcium 8.8 mg/dL (8.4-10.2) 03/10/19 10:55 Total Bilirubin 0.70 mg/dL (0.1-1.2) 03/08/19 20:27 AST 83 units/L (5-40) H 03/08/19 20:27 ALT 45 units/L (7-56) 03/08/19 20:27 Alkaline Phosphatase 83 units/L (35-129) 03/08/19 20:27 Total Protein 8.9 g/dL (6.3-8.2) H 03/08/19 20:27 Albumin 3.5 g/dL (3.9-5) L 03/08/19 20:27 Albumin/Globulin Ratio 0.6 % 03/08/19 20:27 Triglycerides 47 mg/dL (2-149) 03/08/19 20:27 Cholesterol 195 mg/dL (50-199) 03/08/19 20:27 LDL Cholesterol Direct 70 mg/dL (50-130) 03/08/19 20:27 HDL Cholesterol 124 mg/dL (40-59) H 03/08/19 20:27 Cholesterol/HDL Ratio 1.57 % 03/08/19 20:27 Last Vital Signs Temp 97.9 F 03/10/19 09:04 Pulse 104 H 03/10/19 09:04 Resp 16 03/10/19 09:04 BP 117/75 03/10/19 09:04 Pulse Ox 97 03/10/19 09:04
[2019-03-11] MEDS: FOLIC ACID 1 MG TAB PO SCH (09:23)
[2019-03-11] MEDS: MULTIVITAMINS ,THERAPEUTIC TAB PO SCH (09:23)
[2019-03-11] MEDS: OMEGA-3 FATTY ACIDS/FISH OIL 1 GRAM CAP PO SCH ×2 (09:23→21:58)
[2019-03-11] MEDS: levETIRAcetam 500 MG TAB PO SCH ×2 (09:23→21:58)
[2019-03-11] MEDS: COLCHICINE 0.6 MG CAP PO SCH (09:23)
[2019-03-11] MEDS: MECLIZINE 25 MG TAB PO SCH (09:23)
[2019-03-11] MEDS: GABAPENTIN 300 MG CAP PO SCH ×2 (09:24→21:58)
[2019-03-11] MEDS: THIAMINE 100 MG TAB PO SCH (09:24)
[2019-03-11] MEDS: MELATONIN 5 MG TAB PO SCH (21:57)
[2019-03-11] MEDS: traZODone 50 MG TAB PO SCH (21:57)
--- NOTE | 2019-03-12 08:05 | Progress Note ---
Subjective Date of service: 03/12/19 Principal diagnosis: Schizoaffective Disorder Subjective Comment: I interviewed the patient this morning. Medical records reviewed and patient's progress was discussed with unit staff. Nursing note states patient is sitting in the activity room with his peers. He smiles on approach. He answers questions appropriately. Patient is engaged in conversation with a male peer. He voices no needs or concerns at present. SUBJECTIVE In my interview with the patient this morning, the patient is still in bed asleep. He's easily aroused. Mr. Guzman says his night went well, and he slept good. He denies SI/HI and hallucinations of any kind. He says his mood is good, but he "feels bad at times that he has to go go through this again." When asked what he meant, Mr. Guzman replied "this drinking and admitted into programs." Review of Symptoms: Constitutional: Negative for weight loss ENT: Negative for stridor Respiratory: Negative for cough or hemoptysis All other systems reviewed and are negative MSE Appearance: Wearing appropriate clothing. In bed. Behavior: Pleasant and cooperative. Mood: "good but feels bad at times" Affect: Congruent with stated mood Thought Process: Goal directed Speech: Normal rate. Thought Content Harmfulness Denies SI/HI Hallucinations: patient denies Delusions: none elicited Consciousness: alert. Cognition/Memory: normal. Insight/Judgment: Limited. Treatment Plan Due to the psychiatric conditions and treatment listed in the Assessment and Plan - the patient requires continued hospitalization. He is unsafe for discharge at present time due to very high risk of relapse and still undergoing detox treatment Will continue inpatient treatment to allow for medication adjustment and monitoring. Will continue q15 min safety checks. Will encourage the use of environmental modifications and non-pharmacologic approaches for the management of behavioral and psychological symptoms. Will continue current psych medications Monitor for medication side effects. The patient will continue on medications for physical illnesses, and Hospitalist will closely monitor these Continue intensive physical and occupational therapies. Monitor patient's mood, sleep, appetite, and behavior closely. Encourage patient to participate in individual and group therapeutic sessions on the [place]. Will provide a safe and therapeutic environment for patient. Estimated length of stay 2 days. Medications and Allergies Allergies Allergy/AdvReac Type Severity Reaction Status Date / Time No Known Allergies Allergy Verified 01/02/15 21:46 Home Medications Medication Instructions Recorded Confirmed Last Taken Type Thiamine [Vitamin B-1] 100 mg PO QDAY #30 tablet 07/23/15 03/08/19 05/24/18 13:00 Rx Colchicine 0.6 mg PO DAILY #5 tablet 01/25/16 03/08/19 Unknown Rx Ondansetron [Zofran Odt] 4 mg PO Q8HR PRN #20 tab.rapdis 10/05/16 03/08/19 Unknown Rx levETIRAcetam [Keppra TAB] 500 mg PO BID #30 tablet 10/05/16 03/08/19 Unknown Rx Gabapentin 300 mg PO BID 05/25/18 03/08/19 Unknown History Folic Acid [Folvite] 1 mg PO QDAY #30 tablet 05/27/18 03/08/19 Unknown Rx Multivitamin Tab [Multiple Vitamin 1 each PO QDAY 30 Days tablet 05/27/18 03/08/19 Unknown Rx TAB (Theragran)] Meclizine HCl [Meclizine CHEW] 25 mg PO DAILY #20 tab.chew 06/02/18 03/08/19 Unknown Rx Active Meds: Active Medications Acetaminophen (Tylenol) 650 mg PO Q6H PRN PRN Reason: Pain, Mild (1-3) Last Admin: 03/10/19 13:11 Dose: 650 mg Documented by: Chlordiazepoxide HCl (Librium) 50 mg PO Q1H PRN PRN Reason: Rena 8-15 Last Admin: 03/09/19 21:24 Dose: 50 mg Documented by: Chlordiazepoxide HCl (Librium) 100 mg PO Q1H PRN PRN Reason: Rena 16-25 Last Admin: 03/09/19 10:47 Dose: 100 mg Documented by: Colchicine (Colchicine) 0.6 mg PO QDAY [facility] Last Admin: 03/11/19 09:23 Dose: 0.6 mg Documented by: Fish Oil (Fish Oil) 2,000 mg PO BID [facility] Last Admin: 03/11/19 21:58 Dose: 2,000 mg Documented by: Folic Acid (Folvite) 1 mg PO QDAY [facility] Last Admin: 03/11/19 09:23 Dose: 1 mg Documented by: Gabapentin (Gabapentin) 300 mg PO BID [facility] Last Admin: 03/11/19 21:58 Dose: 300 mg Documented by: Haloperidol Lactate (Haldol) 5 mg IM Q6H PRN PRN Reason: Agitation Hydroxyzine Pamoate (Vistaril) 50 mg PO Q6H PRN PRN Reason: Anxiety Levetiracetam (Keppra) 500 mg PO BID [facility] Last Admin: 03/11/19 21:58 Dose: 500 mg Documented by: Lorazepam (Ativan) 2 mg IM Q6H PRN PRN Reason: Agitation Last Admin: 03/08/19 16:50 Dose: 2 mg Documented by: Meclizine HCl (Antivert) 25 mg PO DAILY [facility] Last Admin: 03/11/19 09:23 Dose: 25 mg Documented by: Melatonin (Melatonin) 5 mg PO QHS [facility] Last Admin: 03/11/19 21:57 Dose: 5 mg Documented by: Multivitamins (Theragran Tab) 1 each PO QDAY [facility] Last Admin: 03/11/19 09:23 Dose: 1 each Documented by: Ondansetron HCl (Zofran Odt) 4 mg PO Q8HR PRN PRN Reason: Vomiting Last Admin: 03/09/19 11:46 Dose: 4 mg Documented by: Thiamine HCl (Vitamin B-1) 100 mg PO QDAY [facility] Last Admin: 03/11/19 09:24 Dose: 100 mg Documented by: Trazodone HCl (Desyrel) 50 mg PO QHS [facility] Last Admin: 03/11/19 21:57 Dose: 50 mg Documented by: Trazodone HCl (Desyrel) 50 mg PO QHS PRN PRN Reason: insomnia Last Admin: 03/10/19 00:14 Dose: 50 mg Documented by: Results - Results Labs/Vitals: Laboratory Last Values WBC 3.6 K/mm3 (4.5-11.0) L 03/08/19 20:27 RBC 4.63 M/mm3 (3.65-5.03) 03/08/19 20:27 Hgb 14.9 gm/dl (11.8-15.2) 03/08/19 20:27 Hct 43.3 % (35.5-45.6) 03/08/19 20:27 MCV 94 fl (84-94) 03/08/19 20:27 MCH 32 pg (28-32) 03/08/19 20:27 MCHC 34 % (32-34) 03/08/19 20:27 RDW 18.1 % (13.2-15.2) H 03/08/19 20:27 Plt Count 217 K/mm3 (140-440) 03/08/19 20:27 Lymph % (Auto) 33.4 % (13.4-35.0) 03/08/19 20:27 [place] % (Auto) 11.0 % (0.0-7.3) H 03/08/19 20:27 Eos % (Auto) 1.1 % (0.0-4.3) 03/08/19 20:27 Baso % (Auto) 0.5 % (0.0-1.8) 03/08/19 20:27 Lymph # 1.2 K/mm3 (1.2-5.4) 03/08/19 20:27 [place] # 0.4 K/mm3 (0.0-0.8) 03/08/19 20:27 Eos # 0.0 K/mm3 (0.0-0.4) 03/08/19 20:27 Baso # 0.0 K/mm3 (0.0-0.1) 03/08/19 20:27 Seg Neutrophils % 54.0 % (40.0-70.0) 03/08/19 20:27 Seg Neutrophils # 2.0 K/mm3 (1.8-7.7) 03/08/19 20:27 Sodium 136 mmol/L (137-145) L 03/10/19 10:55 Potassium 3.7 mmol/L (3.6-5.0) D 03/10/19 10:55 Chloride 95.9 mmol/L (98-107) L 03/10/19 10:55 Carbon Dioxide 21 mmol/L (22-30) L 03/10/19 10:55 Anion Gap 23 mmol/L 03/10/19 10:55 BUN 10 mg/dL (9-20) 03/10/19 10:55 Creatinine 0.6 mg/dL (0.8-1.5) L 03/10/19 10:55 Estimated GFR > 60 ml/min 03/10/19 10:55 BUN/Creatinine Ratio 17 % 03/10/19 10:55 Glucose 86 mg/dL (75-100) 03/10/19 10:55 POC Glucose 107 (70-105) H 03/08/19 16:11 Hemoglobin A1c 5.1 % (4-6) 03/08/19 20:27 Calcium 8.8 mg/dL (8.4-10.2) 03/10/19 10:55 Total Bilirubin 0.70 mg/dL (0.1-1.2) 03/08/19 20:27 AST 83 units/L (5-40) H 03/08/19 20:27 ALT 45 units/L (7-56) 03/08/19 20:27 Alkaline Phosphatase 83 units/L (35-129) 03/08/19 20:27 Total Protein 8.9 g/dL (6.3-8.2) H 03/08/19 20:27 Albumin 3.5 g/dL (3.9-5) L 03/08/19 20:27 Albumin/Globulin Ratio 0.6 % 03/08/19 20:27 Triglycerides 47 mg/dL (2-149) 03/08/19 20:27 Cholesterol 195 mg/dL (50-199) 03/08/19 20:27 LDL Cholesterol Direct 70 mg/dL (50-130) 03/08/19 20:27 HDL Cholesterol 124 mg/dL (40-59) H 03/08/19 20:27 Cholesterol/HDL Ratio 1.57 % 03/08/19 20:27 Last Vital Signs Temp 98.9 F 03/11/19 19:23 Pulse 92 H 03/11/19 19:23 Resp 18 03/11/19 19:23 BP 113/71 03/11/19 19:23 Pulse Ox 100 03/11/19 19:23
[2019-03-12] MEDS: COLCHICINE 0.6 MG CAP PO SCH (10:10)
[2019-03-12] MEDS: MULTIVITAMINS ,THERAPEUTIC TAB PO SCH (10:10)
[2019-03-12] MEDS: OMEGA-3 FATTY ACIDS/FISH OIL 1 GRAM CAP PO SCH ×2 (10:10→21:31)
[2019-03-12] MEDS: THIAMINE 100 MG TAB PO SCH (10:10)
[2019-03-12] MEDS: GABAPENTIN 300 MG CAP PO SCH ×2 (10:11→21:34)
[2019-03-12] MEDS: FOLIC ACID 1 MG TAB PO SCH (10:11)
[2019-03-12] MEDS: MECLIZINE 25 MG TAB PO SCH (10:11)
[2019-03-12] MEDS: levETIRAcetam 500 MG TAB PO SCH ×2 (10:11→21:33)
[2019-03-12] MEDS: traZODone 50 MG TAB PO SCH (21:33)
[2019-03-12] MEDS: MELATONIN 5 MG TAB PO SCH (21:33)
--- NOTE | 2019-03-13 07:39 | Progress Note ---
Subjective Date of service: 03/13/19 Principal diagnosis: Schizoaffective Disorder Subjective Comment: I interviewed the patient this morning. Medical records reviewed and patient's progress was discussed with unit staff. Nursing note states patient was calm and cooperative during shift. Patient alert and oriented x 4. Patient observed interacting with peers watching football. Patient ate 100% of snack. Patient denies SI/HI/AVH. SUBJECTIVE In my interview with the patient this morning, the patient is up and out of room. He says his mood is good and he denies hallucinations of any kind. He denies SI/HI. Mr. Davila says he slept well. He says he feels good and is ready to go home. He denies any problems with his appetite. Mr. Davila denies any DT symptoms; He says "I'm over all that." Review of Symptoms: Constitutional: Negative for weight loss ENT: Negative for stridor Respiratory: Negative for cough or hemoptysis All other systems reviewed and are negative MSE Appearance: Wearing appropriate clothing. Up walking Behavior: Pleasant, calm and cooperative. Mood: "Good and ready to go home" Affect: Congruent with stated mood Thought Process: Goal directed Speech: Normal rate. Thought Content Harmfulness Denies SI/HI Hallucinations: patient denies Delusions: none elicited Consciousness: alert. Cognition/Memory: normal. Insight/Judgment: Fair Goals: Maintain good and stable mental health. Plan of Treatment: Discharge to a safe environment The patient should be compliant with medications, not to use drugs and not to drink alcohol. The patient understands that if suicidal ideas, homicidal ideas, or any endangering thoughts arise, the patient should immediately seek for emergent assistance including but not limited to crisis hot line and emergency room. Follow up with outpatient Psychiatrist and PCP within 7 - 14 days of discharge. Medications and Allergies Allergies Allergy/AdvReac Type Severity Reaction Status Date / Time No Known Allergies Allergy Verified 01/02/15 21:46 Home Medications Medication Instructions Recorded Confirmed Last Taken Type Thiamine [Vitamin B-1] 100 mg PO QDAY #30 tablet 07/23/15 03/08/19 05/24/18 13:00 Rx Colchicine 0.6 mg PO DAILY #5 tablet 01/25/16 03/08/19 Unknown Rx Ondansetron [Zofran Odt] 4 mg PO Q8HR PRN #20 tab.rapdis 10/05/16 03/08/19 Unknown Rx levETIRAcetam [Keppra TAB] 500 mg PO BID #30 tablet 10/05/16 03/08/19 Unknown Rx Gabapentin 300 mg PO BID 05/25/18 03/08/19 Unknown History Folic Acid [Folvite] 1 mg PO QDAY #30 tablet 05/27/18 03/08/19 Unknown Rx Multivitamin Tab [Multiple Vitamin 1 each PO QDAY 30 Days tablet 05/27/18 03/08/19 Unknown Rx TAB (Theragran)] Meclizine HCl [Meclizine CHEW] 25 mg PO DAILY #20 tab.chew 06/02/18 03/08/19 Unknown Rx Active Meds: Active Medications Acetaminophen (Tylenol) 650 mg PO Q6H PRN PRN Reason: Pain, Mild (1-3) Last Admin: 03/10/19 13:11 Dose: 650 mg Documented by: Chlordiazepoxide HCl (Librium) 50 mg PO Q1H PRN PRN Reason: GENNA-Tee 8-15 Last Admin: 03/09/19 21:24 Dose: 50 mg Documented by: Chlordiazepoxide HCl (Librium) 100 mg PO Q1H PRN PRN Reason: CIWA-Ar 16-25 Last Admin: 03/09/19 10:47 Dose: 100 mg Documented by: Colchicine (Colchicine) 0.6 mg PO QDAY [facility] Last Admin: 03/12/19 10:10 Dose: 0.6 mg Documented by: Fish Oil (Fish Oil) 2,000 mg PO BID [facility] Last Admin: 03/12/19 21:31 Dose: 2,000 mg Documented by: Folic Acid (Folvite) 1 mg PO QDAY [facility] Last Admin: 03/12/19 10:11 Dose: 1 mg Documented by: Gabapentin (Gabapentin) 300 mg PO BID [facility] Last Admin: 03/12/19 21:34 Dose: 300 mg Documented by: Haloperidol Lactate (Haldol) 5 mg IM Q6H PRN PRN Reason: Agitation Hydroxyzine Pamoate (Vistaril) 50 mg PO Q6H PRN PRN Reason: Anxiety Levetiracetam (Keppra) 500 mg PO BID [facility] Last Admin: 03/12/19 21:33 Dose: 500 mg Documented by: Lorazepam (Ativan) 2 mg IM Q6H PRN PRN Reason: Agitation Last Admin: 03/08/19 16:50 Dose: 2 mg Documented by: Meclizine HCl (Antivert) 25 mg PO DAILY [facility] Last Admin: 03/12/19 10:11 Dose: 25 mg Documented by: Melatonin (Melatonin) 5 mg PO QHS [facility] Last Admin: 03/12/19 21:33 Dose: 5 mg Documented by: Multivitamins (Theragran Tab) 1 each PO QDAY [facility] Last Admin: 03/12/19 10:10 Dose: 1 each Documented by: Ondansetron HCl (Zofran Odt) 4 mg PO Q8HR PRN PRN Reason: Vomiting Last Admin: 03/09/19 11:46 Dose: 4 mg Documented by: Thiamine HCl (Vitamin B-1) 100 mg PO QDAY [facility] Last Admin: 03/12/19 10:10 Dose: 100 mg Documented by: Trazodone HCl (Desyrel) 50 mg PO QHS [facility] Last Admin: 03/12/19 21:33 Dose: 50 mg Documented by: Trazodone HCl (Desyrel) 50 mg PO QHS PRN PRN Reason: insomnia Last Admin: 03/10/19 00:14 Dose: 50 mg Documented by: Results - Results Labs/Vitals: Laboratory Last Values WBC 3.6 K/mm3 (4.5-11.0) L 03/08/19 20:27 RBC 4.63 M/mm3 (3.65-5.03) 03/08/19 20:27 Hgb 14.9 gm/dl (11.8-15.2) 03/08/19 20:27 Hct 43.3 % (35.5-45.6) 03/08/19 20:27 MCV 94 fl (84-94) 03/08/19 20:27 MCH 32 pg (28-32) 03/08/19 20:27 MCHC 34 % (32-34) 03/08/19 20:27 RDW 18.1 % (13.2-15.2) H 03/08/19 20:27 Plt Count 217 K/mm3 (140-440) 03/08/19 20:27 Lymph % (Auto) 33.4 % (13.4-35.0) 03/08/19 20:27 [place] % (Auto) 11.0 % (0.0-7.3) H 03/08/19 20:27 Eos % (Auto) 1.1 % (0.0-4.3) 03/08/19 20:27 Baso % (Auto) 0.5 % (0.0-1.8) 03/08/19 20:27 Lymph # 1.2 K/mm3 (1.2-5.4) 03/08/19 20:27 [place] # 0.4 K/mm3 (0.0-0.8) 03/08/19 20:27 Eos # 0.0 K/mm3 (0.0-0.4) 03/08/19 20:27 Baso # 0.0 K/mm3 (0.0-0.1) 03/08/19 20:27 Seg Neutrophils % 54.0 % (40.0-70.0) 03/08/19 20:27 Seg Neutrophils # 2.0 K/mm3 (1.8-7.7) 03/08/19 20:27 Sodium 136 mmol/L (137-145) L 03/10/19 10:55 Potassium 3.7 mmol/L (3.6-5.0) D 03/10/19 10:55 Chloride 95.9 mmol/L (98-107) L 03/10/19 10:55 Carbon Dioxide 21 mmol/L (22-30) L 03/10/19 10:55 Anion Gap 23 mmol/L 03/10/19 10:55 BUN 10 mg/dL (9-20) 03/10/19 10:55 Creatinine 0.6 mg/dL (0.8-1.5) L 03/10/19 10:55 Estimated GFR > 60 ml/min 03/10/19 10:55 BUN/Creatinine Ratio 17 % 03/10/19 10:55 Glucose 86 mg/dL (75-100) 03/10/19 10:55 POC Glucose 107 (70-105) H 03/08/19 16:11 Hemoglobin A1c 5.1 % (4-6) 03/08/19 20:27 Calcium 8.8 mg/dL (8.4-10.2) 03/10/19 10:55 Total Bilirubin 0.70 mg/dL (0.1-1.2) 03/08/19 20:27 AST 83 units/L (5-40) H 03/08/19 20:27 ALT 45 units/L (7-56) 03/08/19 20:27 Alkaline Phosphatase 83 units/L (35-129) 03/08/19 20:27 Total Protein 8.9 g/dL (6.3-8.2) H 03/08/19 20:27 Albumin 3.5 g/dL (3.9-5) L 03/08/19 20:27 Albumin/Globulin Ratio 0.6 % 03/08/19 20:27 Triglycerides 47 mg/dL (2-149) 03/08/19 20:27 Cholesterol 195 mg/dL (50-199) 03/08/19 20:27 LDL Cholesterol Direct 70 mg/dL (50-130) 03/08/19 20:27 HDL Cholesterol 124 mg/dL (40-59) H 03/08/19 20:27 Cholesterol/HDL Ratio 1.57 % 03/08/19 20:27 Last Vital Signs Temp 98.1 F 03/12/19 09:03 Pulse 93 H 03/12/19 09:03 Resp 18 03/11/19 19:23 BP 90/70 03/12/19 09:03 Pulse Ox 97 03/12/19 09:03
--- NOTE | 2019-03-13 08:45 | Discharge Summary ---
Providers - Providers Date of Admission: 03/08/19 10:27 Date of discharge: 03/13/19 Attending physician: DUC STILL MD 03/08/19 10:27 Consult to Physician [CONS] Routine Comment: Consulting Provider: JUDI ANG Physician Instructions: Reason For Exam: Medical management of geripsych patient Primary care physician: [employer]AL [employer] Hospitalization Reason for admission: Auditory hallucinations and withdrawing from alcohol Condition: Stable Hospital course: The patient was provided inpatient psychiatric treatment with safe and supportive environment, group/individual therapy, psychiatric medication, medication adjustment, adverse effect monitor, medical evaluation, medical treatment, social service assessment, social support meeting, placement assessment and psycho-education. The patients mood, cognition, behavior, motivation, compliance to treatment and appreciation on family/social support are improved and stabilized. At the time of discharge, the patient had no suicidal ideas, no homicidal ideas, no aggressive thoughts, no endangering behavior and no debilitating adverse effects. The patient agreed on the treatment plan, understood the risk, benefit, alternative treatment, potential consequence of no treatment, and gave informed consent. Disposition: DC-01 TO HOME OR SELFCARE Allergies/Adverse Reactions: Allergies No Known Allergies Allergy (Verified 01/02/15 21:46) Vital Signs: Last Vital Signs Temp 98.1 F 03/12/19 09:03 Pulse 93 H 03/12/19 09:03 Resp 18 03/11/19 19:23 BP 90/70 03/12/19 09:03 Pulse Ox 97 03/12/19 09:03 Last Lab: Laboratory Last Values WBC 3.6 K/mm3 (4.5-11.0) L 03/08/19 20:27 RBC 4.63 M/mm3 (3.65-5.03) 03/08/19 20:27 Hgb 14.9 gm/dl (11.8-15.2) 03/08/19 20:27 Hct 43.3 % (35.5-45.6) 03/08/19 20:27 MCV 94 fl (84-94) 03/08/19 20:27 MCH 32 pg (28-32) 03/08/19 20:27 MCHC 34 % (32-34) 03/08/19 20:27 RDW 18.1 % (13.2-15.2) H 03/08/19 20:27 Plt Count 217 K/mm3 (140-440) 03/08/19 20:27 Lymph % (Auto) 33.4 % (13.4-35.0) 03/08/19 20:27 [place] % (Auto) 11.0 % (0.0-7.3) H 03/08/19 20:27 Eos % (Auto) 1.1 % (0.0-4.3) 03/08/19 20:27 Baso % (Auto) 0.5 % (0.0-1.8) 03/08/19 20:27 Lymph # 1.2 K/mm3 (1.2-5.4) 03/08/19 20:27 [place] # 0.4 K/mm3 (0.0-0.8) 03/08/19 20:27 Eos # 0.0 K/mm3 (0.0-0.4) 03/08/19 20:27 Baso # 0.0 K/mm3 (0.0-0.1) 03/08/19 20:27 Seg Neutrophils % 54.0 % (40.0-70.0) 03/08/19 20:27 Seg Neutrophils # 2.0 K/mm3 (1.8-7.7) 03/08/19 20:27 Sodium 136 mmol/L (137-145) L 03/10/19 10:55 Potassium 3.7 mmol/L (3.6-5.0) D 03/10/19 10:55 Chloride 95.9 mmol/L (98-107) L 03/10/19 10:55 Carbon Dioxide 21 mmol/L (22-30) L 03/10/19 10:55 Anion Gap 23 mmol/L 03/10/19 10:55 BUN 10 mg/dL (9-20) 03/10/19 10:55 Creatinine 0.6 mg/dL (0.8-1.5) L 03/10/19 10:55 Estimated GFR > 60 ml/min 03/10/19 10:55 BUN/Creatinine Ratio 17 % 03/10/19 10:55 Glucose 86 mg/dL (75-100) 03/10/19 10:55 POC Glucose 107 (70-105) H 03/08/19 16:11 Hemoglobin A1c 5.1 % (4-6) 03/08/19 20:27 Calcium 8.8 mg/dL (8.4-10.2) 03/10/19 10:55 Total Bilirubin 0.70 mg/dL (0.1-1.2) 03/08/19 20:27 AST 83 units/L (5-40) H 03/08/19 20:27 ALT 45 units/L (7-56) 03/08/19 20:27 Alkaline Phosphatase 83 units/L (35-129) 03/08/19 20:27 Total Protein 8.9 g/dL (6.3-8.2) H 03/08/19 20:27 Albumin 3.5 g/dL (3.9-5) L 03/08/19 20:27 Albumin/Globulin Ratio 0.6 % 03/08/19 20:27 Triglycerides 47 mg/dL (2-149) 03/08/19 20:27 Cholesterol 195 mg/dL (50-199) 03/08/19 20:27 LDL Cholesterol Direct 70 mg/dL (50-130) 03/08/19 20:27 HDL Cholesterol 124 mg/dL (40-59) H 03/08/19 20:27 Cholesterol/HDL Ratio 1.57 % 03/08/19 20:27 Core Measure Documentation - Palliative Care Palliative Care/ Comfort Measures: Not Applicable - Core Measures Any of the following diagnoses?: none Exam - Constitutional Vitals: Temp Pulse Resp BP Pulse Ox 98.1 F 93 H 18 90/70 97 03/12/19 09:03 03/12/19 09:03 03/11/19 19:23 03/12/19 09:03 03/12/19 09:03 General appearance: Present: no acute distress, well-nourished - EENT Eyes: Present: PERRL, EOM intact ENT: hearing intact, clear oral mucosa - Neck Neck: Present: supple, normal ROM - Respiratory Respiratory effort: normal Plan Activity: advance as tolerated Weight Bearing Status: Weight Bear as Tolerated Care Plan Goals: Maintain good and stable mental health. Plan of Treatment: The patient should be compliant with medications, not to use drugs and not to drink alcohol. The patient understands that if suicidal ideas, homicidal ideas, or any endangering thoughts arise, the patient should immediately seek for emergent assistance including but not limited to crisis hot line and emergency room. Follow up with outpatient Psychiatrist and PCP within 7 - 14 days of discharge. Health Concerns: Alcoholism, Cardiac problems, Obesity Assessment: Alcohol use disorder Follow up with: PRIMARY CARE,MD [Primary Care Provider] - 7 Days Prescriptions: traZODone [Desyrel] 50 mg PO QHS PRN #30 tablet PRN Reason: insomnia hydrOXYzine PAMOATE [Vistaril] 50 mg PO Q6H PRN #30 capsule PRN Reason: Anxiety
[2019-03-13] MEDS: OMEGA-3 FATTY ACIDS/FISH OIL 1 GRAM CAP PO SCH (09:03)
[2019-03-13] MEDS: MECLIZINE 25 MG TAB PO SCH (09:04)
[2019-03-13] MEDS: GABAPENTIN 300 MG CAP PO SCH (09:04)
[2019-03-13] MEDS: MULTIVITAMINS ,THERAPEUTIC TAB PO SCH (09:04)
[2019-03-13] MEDS: FOLIC ACID 1 MG TAB PO SCH (09:04)
[2019-03-13] MEDS: THIAMINE 100 MG TAB PO SCH (09:05)
[2019-03-13] MEDS: levETIRAcetam 500 MG TAB PO SCH (09:05)
[2019-03-13] MEDS: COLCHICINE 0.6 MG CAP PO SCH (09:05)
[2019-03-13 10:04] VITALS: BP 124/85
== END 2019-03-13 11:43 | disposition home or self-care (01) | DRG 885 ==
LOC: 3A 10:04 → UNDOADMIN 10:04 → 5A 10:27
PROVIDERS: ADMIT Psychiatry & Neurology Psychiatry; ATTEND Psychiatry & Neurology Psychiatry
DX: F25.1 Schizoaffective disorder, depressive type (principal); F10.288 Alcohol dependence with other alcohol-induced disorder; E87.5 Hyperkalemia; I10 Essential (primary) hypertension; Y90.9 Presence of alcohol in blood, level not specified; M10.9 Gout, unspecified
CPT/HCPCS: 36415; 71045; 80048; 80053; 80061; 80320; 82962; 83036; 84484; 85025; 93005; 93010; G0378; G0480; J2060; Q0162

== ENCOUNTER 2020-01-20 19:28 | Emergency (ER) | payer MEDICARE ==
[2020-01-20 20:40] LABS: Basophils % (Auto) 0.9 % (0.0-1.8); Eosinophils # (Auto) 0.1 K/mm3 (0.0-0.4); Eosinophils % (Auto) 1.4 % (0.0-4.3); Hematocrit 43.2 % (35.5-45.6); Hemoglobin 14.6 gm/dl (11.8-15.2); Lymphocytes # (Auto) 1.7 K/mm3 (1.2-5.4); Lymphocytes % (Auto) 42.5 % (13.4-35.0); Mean Corpuscular HGB Conc 34 % (32-34); Mean Corpuscular Volume 99 fl (84-94); Monocytes # (Auto) 0.4 K/mm3 (0.0-0.8); Monocytes % (Auto) 9.4 % (0.0-7.3); Platelet Count 227 K/mm3 (140-440); Red Blood Count 4.37 M/mm3 (3.65-5.03); Red Cell Distribution Width 13.3 % (13.2-15.2)
[2020-01-20 20:45] LABS: Blood Urea Nitrogen 4 mg/dL (9-20); Calcium 9.4 mg/dL (8.4-10.2); Hemolysis Index 13
[2020-01-20 20:55] LABS: BUN/Creatinine Ratio 7
[2020-01-20 23:06] LABS: Bilirubin,Urine NEG (Negative); Blood,Urine SM (Negative); Color,Urine Yellow (Yellow); Urobilinogen,Urine < 2.0 mg/dL (<2.0)
[2020-01-20 23:12] LABS: Amphetamine Screen,Urine PRESUMPTIVE NEGATIVE; Benzodiazepines Screen,Urine PRESUMPTIVE NEGATIVE; Cannabinoid Screen,Urine PRESUMPTIVE NEGATIVE; Cocaine Screen,Urine PRESUMPTIVE NEGATIVE; Methadone Screen,Urine PRESUMPTIVE NEGATIVE; Opiate Screen,Urine PRESUMPTIVE NEGATIVE
[2020-01-21] MEDS ORDERED: levETIRAcetam 500 MG TAB PO ONE (02:32)
--- NOTE | 2020-01-21 04:53 | Emergency Department Report ---
ED General Adult HPI - General Chief complaint: Medical Clearance Stated complaint: MH Time Seen by Provider: 01/21/20 02:26 Source: patient Mode of arrival: Ambulatory Limitations: No Limitations - History of Present Illness Initial comments: 54-year-old male presents to ED for evaluation. Patient states he had a seizure prior to ED arrival. Patient reports he normally takes Keppra, but has been off of his medication for approximately 1 month. Patient also admits to drinking today. Patient has had multiple ED visits for EtOH abuse in the past. Patient has no complaints at this time. -: This evening Improves with: none Worsens with: none Associated Symptoms: denies: fever/chills, headaches, nausea/vomiting Treatments Prior to Arrival: none - Related Data Previous Rx's Medication Instructions Recorded Last Taken Type Colchicine 0.6 mg PO DAILY #5 tablet 01/25/16 Unknown Rx Ondansetron [Zofran Odt] 4 mg PO Q8HR PRN #20 tab.rapdis 10/05/16 Unknown Rx Folic Acid [Folvite] 1 mg PO QDAY #30 tablet 05/27/18 Unknown Rx Multivitamin Tab [Multiple Vitamin 1 each PO QDAY 30 Days tablet 05/27/18 Unknown Rx TAB (Theragran)] Meclizine HCl [Meclizine CHEW] 25 mg PO DAILY #20 tab.chew 06/02/18 Unknown Rx Gabapentin 300 mg PO BID #60 tab 04/21/19 Unknown Rx Thiamine [Vitamin B-1] 100 mg PO QDAY #30 tablet 04/21/19 Unknown Rx hydrOXYzine PAMOATE [Vistaril] 50 mg PO Q6H PRN #30 capsule 04/21/19 Unknown Rx levETIRAcetam [Keppra TAB] 500 mg PO BID #30 tablet 04/21/19 Unknown Rx traZODone [Desyrel] 50 mg PO QHS PRN #30 tablet 04/21/19 Unknown Rx levETIRAcetam [Keppra TAB] 500 mg PO BID #60 tablet 01/21/20 Unknown Rx Allergies Allergy/AdvReac Type Severity Reaction Status Date / Time No Known Allergies Allergy Verified 01/02/15 21:46 ED Review of Systems ROS: Stated complaint: MH Other details as noted in HPI Constitutional: denies: fever Gastrointestinal: denies: nausea, vomiting Neurological: denies: headache ED Past Medical Hx - Past Medical History Previous Medical History?: Yes Hx Congestive Heart Failure: No Hx Diabetes: No Hx Renal Disease: No Hx Arthritis: Yes Hx Seizures: Yes Hx Psychiatric Treatment: Yes (SCHIZOPHRENIA, anxiety) Hx Asthma: No Hx COPD: No Hx Dementia: No Additional medical history: Gout, Irregular heart beat, alcohol abuse - Surgical History Past Surgical History?: No Hx Cholecystectomy: No Hx Appendectomy: No - Social History Smoking Status: Never Smoker Substance Use Type: Alcohol - Medications Home Medications: Home Medications Medication Instructions Recorded Confirmed Last Taken Type Colchicine 0.6 mg PO DAILY #5 tablet 01/25/16 04/21/19 Unknown Rx Ondansetron [Zofran Odt] 4 mg PO Q8HR PRN #20 tab.rapdis 10/05/16 04/21/19 Unknown Rx Folic Acid [Folvite] 1 mg PO QDAY #30 tablet 05/27/18 04/21/19 Unknown Rx Multivitamin Tab [Multiple Vitamin 1 each PO QDAY 30 Days tablet 05/27/18 04/21/19 Unknown Rx TAB (Theragran)] Meclizine HCl [Meclizine CHEW] 25 mg PO DAILY #20 tab.chew 06/02/18 04/21/19 Unknown Rx Gabapentin 300 mg PO BID #60 tab 04/21/19 Unknown Rx Thiamine [Vitamin B-1] 100 mg PO QDAY #30 tablet 04/21/19 Unknown Rx hydrOXYzine PAMOATE [Vistaril] 50 mg PO Q6H PRN #30 capsule 04/21/19 Unknown Rx levETIRAcetam [Keppra TAB] 500 mg PO BID #30 tablet 04/21/19 Unknown Rx traZODone [Desyrel] 50 mg PO QHS PRN #30 tablet 04/21/19 Unknown Rx levETIRAcetam [Keppra TAB] 500 mg PO BID #60 tablet 01/21/20 Unknown Rx ED Physical Exam - General Limitations: No Limitations General appearance: alert, in no apparent distress, appears intoxicated - Head Head exam: Present: atraumatic, normocephalic - Eye Eye exam: Present: normal appearance, EOMI - ENT ENT exam: Present: mucous membranes moist - Neck Neck exam: Present: normal inspection - Respiratory Respiratory exam: Present: normal lung sounds bilaterally. Absent: respiratory distress - Cardiovascular Cardiovascular Exam: Present: regular rate, normal rhythm - GI/Abdominal GI/Abdominal exam: Present: soft. Absent: distended, tenderness - Extremities Exam Extremities exam: Present: normal inspection - Neurological Exam Neurological exam: Present: alert, oriented X3 - Psychiatric Psychiatric exam: Present: normal affect, normal mood - Skin Skin exam: Present: warm, dry, intact, normal color ED Course Vital Signs 01/20/20 01/21/20 01/21/20 19:32 02:15 02:30 Temperature 97.7 F Pulse Rate 92 H Respiratory 12 12 12 Rate Blood Pressure 143/86 115/74 134/86 Blood Pressure [Left] O2 Sat by Pulse 99 96 Oximetry 01/21/20 01/21/20 01/21/20 02:40 02:45 03:16 Temperature Pulse Rate 90 92 H Respiratory 16 11 L 15 Rate Blood Pressure 113/78 113/69 Blood Pressure 134/86 [Left] O2 Sat by Pulse 98 95 96 Oximetry 01/21/20 01/21/20 01/21/20 04:00 05:15 05:31 Temperature Pulse Rate 83 Respiratory 15 Rate Blood Pressure 112/75 112/75 112/75 Blood Pressure [Left] O2 Sat by Pulse 94 94 97 Oximetry 01/21/20 01/21/20 01/21/20 05:45 08:00 16:45 Temperature Pulse Rate 72 81 Respiratory 20 20 Rate Blood Pressure 112/75 Blood Pressure 121/78 144/89 [Left] O2 Sat by Pulse 99 97 99 Oximetry ED Medical Decision Making - Lab Data Result diagrams: 01/20/20 19:42 01/20/20 19:42 - Radiology Data Radiology results: report reviewed, image reviewed - Medical Decision Making 54-year-old male presents to ED reporting seizure prior to ED arrival. Patient reports he has been out of his Keppra x1 month. Patient given 1000 mg of Keppra here in the ED. No seizure activity here in the ED. CT head is negative for any acute abnormalities. Patient with alcohol level of 360. We will continue to observe patient here in the ED. Will sign out to oncoming physician, Dr Denis dia, to discharge when sober. Critical care attestation.: If time is entered above; I have spent that time in minutes in the direct care of this critically ill patient, excluding procedure time. ED Disposition Clinical Impression: Seizure, Alcohol intoxication Disposition: DC-01 TO HOME OR SELFCARE Is pt being admited?: No Condition: Stable Instructions: Abuse of Alcohol (ED), Recurrent Seizures Adult (ED) Prescriptions: levETIRAcetam [Keppra TAB] 500 mg PO BID #60 tablet Referrals: PRIMARY CARE, [Primary Care Provider] - 3-5 Days
--- NOTE | 2020-01-21 05:05 | Cat Scan Report ---
CT HEAD WITHOUT CONTRAST INDICATION / CLINICAL INFORMATION: seizure. TECHNIQUE: All CT scans at this location are performed using CT dose reduction for ALARA by means of automated exposure control. COMPARISON: CT dated 06/30/15 FINDINGS: HEMORRHAGE: None. EXTRA-AXIAL SPACES: Normal in size and morphology for the patient's age. VENTRICULAR SYSTEM: Normal in size and morphology for the patient's age. CEREBRAL PARENCHYMA: No significant abnormality. No acute territorial infarct. MIDLINE SHIFT OR HERNIATION: None. CEREBELLUM / BRAINSTEM: No significant abnormality. ORBITS: Normal as visualized. SOFT TISSUES of HEAD: No significant abnormality. CALVARIUM: No significant abnormality. PARANASAL SINUSES / MASTOID AIR CELLS: Normal as visualized. ADDITIONAL FINDINGS: None. IMPRESSION: 1. No acute intracranial abnormality. No significant change. Signer Name: Regis Hale MD Signed: 01/21/2020 5:00 AM Workstation Name: [id number]
[2020-01-21 16:46] VITALS: BP 144/89
== END 2020-01-21 16:45 | disposition home or self-care (01) ==
LOC: ED 19:28 → EEVIPCON 19:28 → ED 01-21 16:45
DX: R56.9 Unspecified convulsions (principal); F10.129 Alcohol abuse with intoxication, unspecified; M19.91 Primary osteoarthritis, unspecified site; F20.9 Schizophrenia, unspecified; F41.9 Anxiety disorder, unspecified; Z79.899 Other long term (current) drug therapy
CPT/HCPCS: 36415; 70450; 80048; 80307; 80320; 81001; 85025; G0480

== ENCOUNTER 2020-04-29 22:44 | Emergency (ER) | payer MEDICARE ==
--- NOTE | 2020-04-30 00:49 | Event Note ---
ED Screening Note Date of service: 04/30/20 Time: 00:48 ED Screening Note: Pt here for medical clearance for alcohol detox last drink within 2 hours This initial assessment/diagnostic orders/clinical plan/treatment(s) is/are subject to change based on patients health status, clinical progression and re- assessment by fellow clinical providers in the ED. Further treatment and workup at subsequent clinical providers discretion. Patient/guardian urged not to elope from the ED as their condition may be serious if not clinically assessed and managed. Initial orders include: labs
[2020-04-30 01:27] LABS: Basophils # (Auto) 0.1 K/mm3 (0.0-0.1); Basophils % (Auto) 1.1 % (0.0-1.8); Eosinophils # (Auto) 0.1 K/mm3 (0.0-0.4); Eosinophils % (Auto) 1.4 % (0.0-4.3); Hematocrit 37.6 % (35.5-45.6); Hemoglobin 13.3 gm/dl (11.8-15.2); Lymphocytes # (Auto) 1.8 K/mm3 (1.2-5.4); Lymphocytes % (Auto) 32.4 % (13.4-35.0); Mean Corpuscular HGB Conc 36 % (32-34); Mean Corpuscular Volume 99 fl (84-94); Monocytes # (Auto) 0.5 K/mm3 (0.0-0.8); Platelet Count 263 K/mm3 (140-440); Red Blood Count 3.79 M/mm3 (3.65-5.03); Red Cell Distribution Width 14.2 % (13.2-15.2)
[2020-04-30 01:37] LABS: Alanine Aminotransferase 29 units/L (7-56); Albumin 4.3 g/dL (3.9-5); Blood Urea Nitrogen 7 mg/dL (9-20); Calcium 9.4 mg/dL (8.4-10.2); Hemolysis Index 9
[2020-04-30 01:48] LABS: Bilirubin,Urine NEG (Negative); Blood,Urine NEG (Negative); Color,Urine Colorless (Yellow); Protein,Urine <15 mg/dL mg/dL (Negative); Urobilinogen,Urine < 2.0 mg/dL (<2.0)
[2020-04-30 01:51] LABS: BUN/Creatinine Ratio 12
[2020-04-30 01:57] LABS: Amphetamine Screen,Urine PRESUMPTIVE NEGATIVE; Benzodiazepines Screen,Urine PRESUMPTIVE NEGATIVE; Cannabinoid Screen,Urine PRESUMPTIVE NEGATIVE; Cocaine Screen,Urine PRESUMPTIVE NEGATIVE; Methadone Screen,Urine PRESUMPTIVE NEGATIVE; Opiate Screen,Urine PRESUMPTIVE NEGATIVE
[2020-04-30 04:10] VITALS: BP 128/77
--- NOTE | 2020-04-30 04:10 | Emergency Department Report ---
ED General Adult HPI - General Chief complaint: Medical Clearance Stated complaint: MENTAL HEALTH Time Seen by Provider: 04/30/20 00:48 Source: patient Mode of arrival: Ambulatory Limitations: No Limitations - History of Present Illness Initial comments: 54-year-old -Turkish male patient presents for medical clearance for alcohol detox today. Patient states he was advised to get alcohol detox by his primary care doctor so he can have a colonoscopy procedure. He denies any current abdominal pain, hematochezia/melena, hematemesis/coffee-ground emesis, fever/chills/sweats, urinary symptoms, or other complaints. Patient states his last drink was 2 hours ago. He denies any SI/HI - Related Data Previous Rx's Medication Instructions Recorded Last Taken Type Colchicine 0.6 mg PO DAILY #5 tablet 01/25/16 Unknown Rx Ondansetron [Zofran Odt] 4 mg PO Q8HR PRN #20 tab.rapdis 10/05/16 Unknown Rx Folic Acid [Folvite] 1 mg PO QDAY #30 tablet 05/27/18 Unknown Rx Multivitamin Tab [Multiple Vitamin 1 each PO QDAY 30 Days tablet 05/27/18 Unknown Rx TAB (Theragran)] Meclizine HCl [Meclizine CHEW] 25 mg PO DAILY #20 tab.chew 06/02/18 Unknown Rx Gabapentin 300 mg PO BID #60 tab 04/21/19 Unknown Rx Thiamine [Vitamin B-1] 100 mg PO QDAY #30 tablet 04/21/19 Unknown Rx hydrOXYzine PAMOATE [Vistaril] 50 mg PO Q6H PRN #30 capsule 04/21/19 Unknown Rx levETIRAcetam [Keppra TAB] 500 mg PO BID #30 tablet 04/21/19 Unknown Rx traZODone [Desyrel] 50 mg PO QHS PRN #30 tablet 04/21/19 Unknown Rx levETIRAcetam [Keppra TAB] 500 mg PO BID #60 tablet 01/21/20 Unknown Rx Allergies Allergy/AdvReac Type Severity Reaction Status Date / Time No Known Allergies Allergy Verified 01/02/15 21:46 ED Review of Systems ROS: Stated complaint: MENTAL HEALTH Other details as noted in HPI Constitutional: denies: chills, diaphoresis, fever, malaise Respiratory: denies: cough, shortness of breath Cardiovascular: denies: chest pain Endocrine: denies: excessive sweating Gastrointestinal: denies: abdominal pain, nausea, vomiting Skin: denies: change in color Hematological/Lymphatic: denies: easy bleeding ED Past Medical Hx - Past Medical History Previous Medical History?: Yes Hx Congestive Heart Failure: No Hx Diabetes: No Hx Renal Disease: No Hx Arthritis: Yes Hx Seizures: Yes Hx Psychiatric Treatment: Yes (SCHIZOPHRENIA, anxiety) Hx Asthma: No Hx COPD: No Hx Dementia: No Additional medical history: Gout, Irregular heart beat, alcohol abuse - Surgical History Past Surgical History?: Yes Hx Cholecystectomy: No Hx Appendectomy: No - Social History Smoking Status: Never Smoker Substance Use Type: Alcohol - Medications Home Medications: Home Medications Medication Instructions Recorded Confirmed Last Taken Type Colchicine 0.6 mg PO DAILY #5 tablet 01/25/16 04/21/19 Unknown Rx Ondansetron [Zofran Odt] 4 mg PO Q8HR PRN #20 tab.rapdis 10/05/16 04/21/19 Unknown Rx Folic Acid [Folvite] 1 mg PO QDAY #30 tablet 05/27/18 04/21/19 Unknown Rx Multivitamin Tab [Multiple Vitamin 1 each PO QDAY 30 Days tablet 05/27/18 04/21/19 Unknown Rx TAB (Theragran)] Meclizine HCl [Meclizine CHEW] 25 mg PO DAILY #20 tab.chew 06/02/18 04/21/19 Unknown Rx Gabapentin 300 mg PO BID #60 tab 04/21/19 Unknown Rx Thiamine [Vitamin B-1] 100 mg PO QDAY #30 tablet 04/21/19 Unknown Rx hydrOXYzine PAMOATE [Vistaril] 50 mg PO Q6H PRN #30 capsule 04/21/19 Unknown Rx levETIRAcetam [Keppra TAB] 500 mg PO BID #30 tablet 04/21/19 Unknown Rx traZODone [Desyrel] 50 mg PO QHS PRN #30 tablet 04/21/19 Unknown Rx levETIRAcetam [Keppra TAB] 500 mg PO BID #60 tablet 01/21/20 Unknown Rx ED Physical Exam - General Limitations: No Limitations General appearance: alert, in no apparent distress, obese - Head Head exam: Present: atraumatic, normocephalic - Eye Eye exam: Present: normal appearance - ENT ENT exam: Present: mucous membranes moist - Neck Neck exam: Present: normal inspection - Respiratory Respiratory exam: Present: normal lung sounds bilaterally. Absent: respiratory distress - Cardiovascular Cardiovascular Exam: Present: regular rate, normal rhythm - GI/Abdominal GI/Abdominal exam: Present: soft. Absent: distended, tenderness, guarding, rebound, rigid - Back Exam Back exam: Present: full ROM - Neurological Exam Neurological exam: Present: alert, oriented X3, normal gait - Psychiatric Psychiatric exam: Present: normal affect, normal mood - Skin Skin exam: Present: warm, dry, intact, normal color. Absent: rash, cyanosis, diaphoretic ED Course Vital Signs 04/29/20 04/30/20 04/30/20 23:28 04:09 04:10 Temperature 98.1 F 98.1 F Pulse Rate 94 H 103 H 93 H Respiratory 16 16 Rate Blood Pressure 124/77 128/77 O2 Sat by Pulse 99 96 Oximetry ED Medical Decision Making - Lab Data Result diagrams: 04/30/20 00:57 04/30/20 00:57 Lab Results 04/30/20 04/30/20 04/30/20 Range/Units 00:57 00:57 00:57 WBC 5.4 (4.5-11.0) K/mm3 RBC 3.79 (3.65-5.03) M/mm3 Hgb 13.3 (11.8-15.2) gm/dl Hct 37.6 (35.5-45.6) % MCV 99 H (84-94) fl MCH 35 H (28-32) pg MCHC 36 H (32-34) % RDW 14.2 (13.2-15.2) % Plt Count 263 (140-440) K/mm3 Lymph % (Auto) 32.4 (13.4-35.0) % [place] % (Auto) 9.0 H (0.0-7.3) % Eos % (Auto) 1.4 (0.0-4.3) % Baso % (Auto) 1.1 (0.0-1.8) % Lymph # (Auto) 1.8 (1.2-5.4) K/mm3 [place] # (Auto) 0.5 (0.0-0.8) K/mm3 Eos # (Auto) 0.1 (0.0-0.4) K/mm3 Baso # (Auto) 0.1 (0.0-0.1) K/mm3 Seg Neutrophils % 56.1 (40.0-70.0) % Seg Neutrophils # 3.0 (1.8-7.7) K/mm3 Sodium 140 (137-145) mmol/L Potassium 4.0 (3.6-5.0) mmol/L Chloride 103.2 (98-107) mmol/L Carbon Dioxide 22 (22-30) mmol/L Anion Gap 19 mmol/L BUN 7 L (9-20) mg/dL Creatinine 0.6 L (0.8-1.3) mg/dL Estimated GFR > 60 ml/min BUN/Creatinine Ratio 12 % Glucose 99 (75-100) mg/dL Calcium 9.4 (8.4-10.2) mg/dL Total Bilirubin 0.20 (0.1-1.2) mg/dL AST 27 (5-40) units/L ALT 29 (7-56) units/L Alkaline Phosphatase 62 (35-129) units/L Total Protein 7.6 (6.3-8.2) g/dL Albumin 4.3 (3.9-5) g/dL Albumin/Globulin Ratio 1.3 % Urine Color (Yellow) Urine Turbidity (Clear) Urine pH (5.0-7.0) Ur Specific [place] (1.003-1.030) Urine Protein (Negative) mg/dL Urine Glucose (UA) (Negative) mg/dL Urine Ketones (Negative) mg/dL Urine Blood (Negative) Urine Nitrite (Negative) Urine Bilirubin (Negative) Urine Urobilinogen (<2.0) mg/dL Ur Leukocyte Esterase (Negative) Urine WBC (Auto) (0.0-6.0) /HPF Urine RBC (Auto) (0.0-6.0) /HPF Salicylates < 0.3 L (2.8-20.0) mg/dL Urine Opiates Screen Urine Methadone Screen Acetaminophen (10.0-30.0) ug/mL Ur Barbiturates Screen Ur Phencyclidine Scrn Ur Amphetamines Screen U Benzodiazepines Scrn Urine Cocaine Screen U Marijuana (THC) Screen Drugs of Abuse Note Plasma/Serum Alcohol (0-0.07) % 04/30/20 04/30/20 04/30/20 Range/Units 00:57 00:57 01:27 WBC (4.5-11.0) K/mm3 RBC (3.65-5.03) M/mm3 Hgb (11.8-15.2) gm/dl Hct (35.5-45.6) % MCV (84-94) fl MCH (28-32) pg MCHC (32-34) % RDW (13.2-15.2) % Plt Count (140-440) K/mm3 Lymph % (Auto) (13.4-35.0) % [place] % (Auto) (0.0-7.3) % Eos % (Auto) (0.0-4.3) % Baso % (Auto) (0.0-1.8) % Lymph # (Auto) (1.2-5.4) K/mm3 [place] # (Auto) (0.0-0.8) K/mm3 Eos # (Auto) (0.0-0.4) K/mm3 Baso # (Auto) (0.0-0.1) K/mm3 Seg Neutrophils % (40.0-70.0) % Seg Neutrophils # (1.8-7.7) K/mm3 Sodium (137-145) mmol/L Potassium (3.6-5.0) mmol/L Chloride (98-107) mmol/L Carbon Dioxide (22-30) mmol/L Anion Gap mmol/L BUN (9-20) mg/dL Creatinine (0.8-1.3) mg/dL Estimated GFR ml/min BUN/Creatinine Ratio % Glucose (75-100) mg/dL Calcium (8.4-10.2) mg/dL Total Bilirubin (0.1-1.2) mg/dL AST (5-40) units/L ALT (7-56) units/L Alkaline Phosphatase (35-129) units/L Total Protein (6.3-8.2) g/dL Albumin (3.9-5) g/dL Albumin/Globulin Ratio % Urine Color Colorless (Yellow) Urine Turbidity Clear (Clear) Urine pH 7.0 (5.0-7.0) Ur Specific [place] 1.002 L (1.003-1.030) Urine Protein <15 mg/dl (Negative) mg/dL Urine Glucose (UA) Neg (Negative) mg/dL Urine Ketones Neg (Negative) mg/dL Urine Blood Neg (Negative) Urine Nitrite Neg (Negative) Urine Bilirubin Neg (Negative) Urine Urobilinogen < 2.0 (<2.0) mg/dL Ur Leukocyte Esterase Neg (Negative) Urine WBC (Auto) 0.0 (0.0-6.0) /HPF Urine RBC (Auto) 1.0 (0.0-6.0) /HPF Salicylates (2.8-20.0) mg/dL Urine Opiates Screen Urine Methadone Screen Acetaminophen 5.0 L (10.0-30.0) ug/mL Ur Barbiturates Screen Ur Phencyclidine Scrn Ur Amphetamines Screen U Benzodiazepines Scrn Urine Cocaine Screen U Marijuana (THC) Screen Drugs of Abuse Note Plasma/Serum Alcohol 0.28 H (0-0.07) % 04/30/20 Range/Units 01:27 WBC (4.5-11.0) K/mm3 RBC (3.65-5.03) M/mm3 Hgb (11.8-15.2) gm/dl Hct (35.5-45.6) % MCV (84-94) fl MCH (28-32) pg MCHC (32-34) % RDW (13.2-15.2) % Plt Count (140-440) K/mm3 Lymph % (Auto) (13.4-35.0) % [place] % (Auto) (0.0-7.3) % Eos % (Auto) (0.0-4.3) % Baso % (Auto) (0.0-1.8) % Lymph # (Auto) (1.2-5.4) K/mm3 [place] # (Auto) (0.0-0.8) K/mm3 Eos # (Auto) (0.0-0.4) K/mm3 Baso # (Auto) (0.0-0.1) K/mm3 Seg Neutrophils % (40.0-70.0) % Seg Neutrophils # (1.8-7.7) K/mm3 Sodium (137-145) mmol/L Potassium (3.6-5.0) mmol/L Chloride (98-107) mmol/L Carbon Dioxide (22-30) mmol/L Anion Gap mmol/L BUN (9-20) mg/dL Creatinine (0.8-1.3) mg/dL Estimated GFR ml/min BUN/Creatinine Ratio % Glucose (75-100) mg/dL Calcium (8.4-10.2) mg/dL Total Bilirubin (0.1-1.2) mg/dL AST (5-40) units/L ALT (7-56) units/L Alkaline Phosphatase (35-129) units/L Total Protein (6.3-8.2) g/dL Albumin (3.9-5) g/dL Albumin/Globulin Ratio % Urine Color (Yellow) Urine Turbidity (Clear) Urine pH (5.0-7.0) Ur Specific [place] (1.003-1.030) Urine Protein (Negative) mg/dL Urine Glucose (UA) (Negative) mg/dL Urine Ketones (Negative) mg/dL Urine Blood (Negative) Urine Nitrite (Negative) Urine Bilirubin (Negative) Urine Urobilinogen (<2.0) mg/dL Ur Leukocyte Esterase (Negative) Urine WBC (Auto) (0.0-6.0) /HPF Urine RBC (Auto) (0.0-6.0) /HPF Salicylates (2.8-20.0) mg/dL Urine Opiates Screen Presumptive negative Urine Methadone Screen Presumptive negative Acetaminophen (10.0-30.0) ug/mL Ur Barbiturates Screen Presumptive negative Ur Phencyclidine Scrn Presumptive negative Ur Amphetamines Screen Presumptive negative U Benzodiazepines Scrn Presumptive negative Urine Cocaine Screen Presumptive negative U Marijuana (THC) Screen Presumptive negative Drugs of Abuse Note Disclamer Plasma/Serum Alcohol (0-0.07) % - Medical Decision Making 54-year-old -Turkish male patient presents for medical clearance for alcohol detox today. Patient states he was advised to get alcohol detox by his primary care doctor so he can have a colonoscopy procedure. He denies any current abdominal pain, hematochezia/melena, hematemesis/coffee-ground emesis, fever/chills/sweats, urinary symptoms, or other complaints. Patient states his last drink was 2 hours ago. He denies any SI/HI CBC and CMP are WNL. Drug screen is normal. Blood alcohol level = 280, however patient is not driving and his nephew will be is driving him home. He is alert and oriented x3 is stable for discharge home. Vitals are normal. Patient is to follow-up with his primary care provider. Patient provided with alcohol detox facility list and informed to seek out treatment within 24 hours. Strict return precautions were discussed in detail with patient who verbalizes understanding. Critical care attestation.: If time is entered above; I have spent that time in minutes in the direct care of this critically ill patient, excluding procedure time. ED Disposition Clinical Impression: Medical clearance for psychiatric admission Disposition: DC- TO HOME OR SELFCARE Is pt being admited?: No Condition: Stable Instructions: Alcohol Use Disorder Additional Instructions: You are medically cleared for alcohol detox treatment Referrals: PRIMARY CARE [Primary Care Provider] - 3-5 Days
== END 2020-04-30 04:18 | disposition home or self-care (01) ==
LOC: ED 22:44
DX: F10.239 Alcohol dependence with withdrawal, unspecified (principal); Z04.6 Encounter for general psychiatric examination, requested by authority; M19.91 Primary osteoarthritis, unspecified site; R56.9 Unspecified convulsions; F20.9 Schizophrenia, unspecified; F41.9 Anxiety disorder, unspecified; Z79.899 Other long term (current) drug therapy
CPT/HCPCS: 36415; 80053; 80307; 80320; 81001; 85025; G0480

== ENCOUNTER 2020-07-14 22:18 | Emergency (ER) | payer MEDICARE ==
[2020-07-14] MEDS ORDERED: LORazepam 2 MG/ML VIAL IV ONE (22:35)
--- NOTE | 2020-07-14 22:55 | XRay Report ---
CHEST 1 VIEW INDICATION: fall. COMPARISON: 04/19/2019 FINDINGS: SUPPORT DEVICES: None. HEART: Within normal limits. LUNGS/PLEURA: No acute air space or interstitial disease. ADDITIONAL FINDINGS: None. IMPRESSION: 1. No acute findings. Signer Name: Link Gutierrez MD Signed: 07/14/2020 10:51 PM Workstation Name: [id number]
[2020-07-14] MEDS ORDERED: THIAMINE 100 MG, FOLIC ACID 1 MG, MULTIPLE VITAMIN INJ, ADULT 10 ML in SODIUM CHLORIDE ... IV ONE (23:15)
--- NOTE | 2020-07-14 23:37 | Cat Scan Report ---
CT head without contrast HISTORY: fall, injury. TECHNIQUE: Axial imaging performed from the skull apex through the skull base without the use of con trast. All CT scans at this location are performed using CT dose reduction for ALARA by means of aut omated exposure control. COMPARISON: CT head from 01/21/2020 FINDINGS: Parenchyma: No acute intracranial hemorrhage or parenchymal abnormality. Ventricles: There is mild diffuse brain atrophy with commensurate ventricular enlargement which is l ikely age appropriate. Soft tissues: Soft tissues including the orbits appear normal. Bones: No acute osseous abnormality. Sinuses: Sinuses and mastoid air cells are clear. IMPRESSION: No acute abnormality. Signer Name: Link Gutierrez MD Signed: 07/14/2020 11:33 PM Workstation Name: [id number]
--- NOTE | 2020-07-14 23:38 | Cat Scan Report ---
CT cervical spine without contrast INDICATION: fall, injury. TECHNIQUE: Axial imaging performed through the cervical spine without the use of contrast. Sagittal and coronal reconstructed images were also reviewed. All CT scans at this location are performed us ing CT dose reduction for ALARA by means of automated exposure control. COMPARISON: None FINDINGS: Alignment: There is 2 mm of anterolisthesis of C2 on C3 and 2 mm of retrolisthesis of C3 on C4. Othe rwise normal alignment. Bones: There is no acute osseous abnormality. Moderate multilevel discogenic DJD is present. Soft tissues: No acute or significant incidental soft tissue abnormality. IMPRESSION: No acute abnormality. Signer Name: Link Gutierrez MD Signed: 07/14/2020 11:34 PM Workstation Name: [id number]
[2020-07-15 00:20] LABS: Alanine Aminotransferase 17 units/L (7-56); Albumin 4.3 g/dL (3.9-5); Bilirubin,Direct 0.4 mg/dL (0-0.2); Blood Urea Nitrogen 5 mg/dL (9-20); Hemolysis Index 15
[2020-07-15 00:26] LABS: BUN/Creatinine Ratio 7
[2020-07-15] MEDS ORDERED: POTASSIUM CHLORIDE ER 20 MEQ TAB PO ONE (00:32)
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
[2020-07-15 00:51] LABS: Hematocrit 37.1 % (35.5-45.6); Hemoglobin 13.3 gm/dl (11.8-15.2); Mean Corpuscular HGB Conc 36 % (32-34); Mean Corpuscular Volume 101 fl (84-94); Red Blood Count 3.69 M/mm3 (3.65-5.03); Red Cell Distribution Width 17.3 % (13.2-15.2)
[2020-07-15 01:57] LABS: Platelet Count 185 K/mm3 (140-440)
[2020-07-15] MEDS ORDERED: chlordiazePOXIDE 25 MG CAP PO ONE (01:59)
[2020-07-15] MEDS ORDERED: MAGNESIUM OXIDE 400 MG TAB PO ONE (02:00)
[2020-07-15 02:51] LABS: Total Cells Counted 100
[2020-07-15 02:53] LABS: Anisocytosis 1+; Platelet Estimate Consistent w Auto
[2020-07-15 05:49] VITALS: BP 128/92
== END 2020-07-15 08:00 | disposition home or self-care (01) ==
LOC: ED 22:18
DX: F10.239 Alcohol dependence with withdrawal, unspecified (principal); E83.42 Hypomagnesemia; E87.6 Hypokalemia; M19.91 Primary osteoarthritis, unspecified site; R56.9 Unspecified convulsions; F20.9 Schizophrenia, unspecified; Z79.899 Other long term (current) drug therapy
CPT/HCPCS: 36415; 70450; 71045; 72125; 80048; 80076; 83735; 85007; 85025; 96365; 96366; 96375; 99285; J2060; J3411; J7030; 80320; G0480

== ENCOUNTER 2021-01-04 17:03 | Inpatient (IN) | payer MEDICARE ==
[2021-01-04] MEDS ORDERED: SODIUM CHLORIDE 0.9% 1000 ML 1,000 ML IV ONE (17:25)
[2021-01-04] MEDS ORDERED: LORazepam 2 MG/ML VIAL IV PRN (17:56)
--- NOTE | 2021-01-04 18:03 | XRay Report ---
CHEST 2 VIEWS INDICATION / CLINICAL INFORMATION: Chest Pain. COMPARISON: 07/14/2020 FINDINGS: SUPPORT DEVICES: None. HEART / MEDIASTINUM: No significant abnormality. LUNGS / PLEURA: No significant pulmonary or pleural abnormality. No pneumothorax. ADDITIONAL FINDINGS: No significant additional findings. IMPRESSION: 1. No acute findings. No interval change. Signer Name: Esperanza Baca MD Signed: 01/04/2021 5:59 PM Workstation Name: [id number]
--- NOTE | 2021-01-04 18:07 | Event Note ---
ED Screening Note Date of service: 01/04/21 Time: 18:00 ED Screening Note: 55-year-old -[place] male with a current history of thyroid cancer presents to the emergency room complaining of shortness of breath chest pain fall that he had at 4 AM with nausea and vomiting and tremors. Patient endorsed that he has not had an alcoholic drink in 2 days. Patient does admit to a headache that is bandlike. He admits that he is a little anxious. Been very restless. Patient was brought to the emergency room by his brother. This initial assessment/diagnostic orders/clinical plan/treatment(s) is/are subject to change based on patients health status, clinical progression and re-assessment by fellow clinical providers in the ED. Further treatment and workup at subsequent clinical providers discretion. Patient/guardian urged not to elope from the ED as their condition may be serious if not clinically assessed and managed. Initial orders include: Discussed case with Dr. German. Ordered the CIWA protocol order chest pain protocol D-dimer ordered patient is brought back immediately to room 22 nurses at bedside when patient was brought in. Report given by me to nurse.
[2021-01-04] MEDS ORDERED: diazePAM 10 MG/2 ML SYRINGE IV ONE ×3 (18:08→22:46)
[2021-01-04] MEDS ORDERED: THIAMINE 100 MG, FOLIC ACID 1 MG, MULTIPLE VITAMIN INJ, ADULT 10 ML in SODIUM CHLORIDE ... IV ONE (18:09)
--- NOTE | 2021-01-04 18:10 | Emergency Department Report ---
ED General Adult HPI - General Chief complaint: Chest Pain Stated complaint: CHEST/AB/HEAD PAIN PUI?: No Time Seen by Provider: 01/04/21 18:06 Source: patient, RN notes reviewed, old records reviewed Mode of arrival: Wheelchair Limitations: Physical Limitation - History of Present Illness Initial comments: The patient was evaluated in the emergency department for symptoms described in the history of present illness. He/she was evaluated in the context of the global COVID-19 pandemic, which necessitated consideration that the patient might be at risk for infection with the virus that causes COVID-19. Institutional protocols and algorithms that pertain to the evaluation of patients at risk for COVID-19 are in a state of rapid change based on information released by regulatory bodies including the CDC and federal and [facility] organizations. These policies and algorithms were followed during the patient's care in the emergency department. Please note that these policies, procedures and recommendations changed on a rapid basis. Past medical history: Hypertension, alcohol abuse, seizure secondary to alcohol withdrawal, schizophrenia, and anxiety. The patient is a 55-year-old gentleman. The patient presents to the ER today with a complaint of epigastric abdominal pain, chest pain, nausea, vomiting, weakness, tremors, and syncope/loss of consciousness yesterday. The patient denies fever, travel, surgery, immobilization, DVT and pulmonary embolism risk factors. The patient has a headache but no neck pain. The patient states he is not homicidal or suicidal. This patient had a CT scan of his chest performed in 2019, which demonstrated no pulmonary embolism. The patient tells me he is not had alcohol for a few days. The patient's symptoms are improved with Valium here in the emergency room. -: Gradual Location: head, chest, abdomen Quality: aching Consistency: constant Improves with: medication Worsens with: none - Related Data Previous Rx's Medication Instructions Recorded Last Taken Type Colchicine 0.6 mg PO DAILY #5 tablet 01/25/16 Unknown Rx Ondansetron [Zofran Odt] 4 mg PO Q8HR PRN #20 tab.rapdis 10/05/16 Unknown Rx Folic Acid [Folvite] 1 mg PO QDAY #30 tablet 05/27/18 Unknown Rx Multivitamin Tab [Multiple Vitamin 1 each PO QDAY 30 Days tablet 05/27/18 Unknown Rx TAB (Theragran)] Meclizine HCl [Meclizine CHEW] 25 mg PO DAILY #20 tab.chew 06/02/18 Unknown Rx Gabapentin 300 mg PO BID #60 tab 04/21/19 Unknown Rx Thiamine [Vitamin B-1] 100 mg PO QDAY #30 tablet 04/21/19 Unknown Rx hydrOXYzine PAMOATE [Vistaril] 50 mg PO Q6H PRN #30 capsule 04/21/19 Unknown Rx levETIRAcetam [Keppra TAB] 500 mg PO BID #30 tablet 04/21/19 Unknown Rx traZODone [Desyrel] 50 mg PO QHS PRN #30 tablet 04/21/19 Unknown Rx levETIRAcetam [Keppra TAB] 500 mg PO BID #60 tablet 01/21/20 Unknown Rx chlordiazePOXIDE [Librium] 25 mg PO Q6H PRN #20 capsule 07/15/20 Unknown Rx Allergies Allergy/AdvReac Type Severity Reaction Status Date / Time No Known Allergies Allergy Verified 01/02/15 21:46 ED Review of Systems ROS: Stated complaint: CHEST/AB/HEAD PAIN Other details as noted in HPI Constitutional: malaise, weakness. denies: fever Eyes: denies: eye discharge ENT: denies: epistaxis Respiratory: denies: cough Cardiovascular: chest pain Gastrointestinal: abdominal pain, nausea, vomiting Musculoskeletal: back pain Neurological: headache, weakness Psychiatric: anxiety. denies: homicidal thoughts, suicidal thoughts ED Past Medical Hx - Past Medical History Previous Medical History?: Yes Hx Congestive Heart Failure: No Hx Diabetes: No Hx Renal Disease: No Hx Arthritis: Yes Hx Seizures: Yes Hx Psychiatric Treatment: Yes (SCHIZOPHRENIA, anxiety) Hx Asthma: No Hx COPD: No Hx Dementia: No Additional medical history: Gout, Irregular heart beat, alcohol abuse, hypothyroidism - Surgical History Past Surgical History?: Yes Hx Cholecystectomy: No Hx Appendectomy: No - Social History Smoking Status: Never Smoker Substance Use Type: Alcohol - Medications Home Medications: Home Medications Medication Instructions Recorded Confirmed Last Taken Type Colchicine 0.6 mg PO DAILY #5 tablet 01/25/16 04/21/19 Unknown Rx Ondansetron [Zofran Odt] 4 mg PO Q8HR PRN #20 tab.rapdis 10/05/16 04/21/19 Unknown Rx Folic Acid [Folvite] 1 mg PO QDAY #30 tablet 05/27/18 04/21/19 Unknown Rx Multivitamin Tab [Multiple Vitamin 1 each PO QDAY 30 Days tablet 05/27/18 04/21/19 Unknown Rx TAB (Theragran)] Meclizine HCl [Meclizine CHEW] 25 mg PO DAILY #20 tab.chew 06/02/18 04/21/19 Unknown Rx Gabapentin 300 mg PO BID #60 tab 04/21/19 Unknown Rx Thiamine [Vitamin B-1] 100 mg PO QDAY #30 tablet 04/21/19 Unknown Rx hydrOXYzine PAMOATE [Vistaril] 50 mg PO Q6H PRN #30 capsule 04/21/19 Unknown Rx levETIRAcetam [Keppra TAB] 500 mg PO BID #30 tablet 04/21/19 Unknown Rx traZODone [Desyrel] 50 mg PO QHS PRN #30 tablet 04/21/19 Unknown Rx levETIRAcetam [Keppra TAB] 500 mg PO BID #60 tablet 01/21/20 Unknown Rx chlordiazePOXIDE [Librium] 25 mg PO Q6H PRN #20 capsule 07/15/20 Unknown Rx ED Physical Exam - General Limitations: Physical Limitation General appearance: alert, anxious, in distress, obese - Head Head exam: Present: atraumatic, normocephalic - Eye Eye exam: Present: normal appearance, EOMI. Absent: nystagmus - ENT ENT exam: Present: normal orophraynx, mucous membranes moist, normal external ear exam, other (Patient has poor dentition. Tongue fasciculations noted.) - Neck Neck exam: Present: normal inspection, full ROM. Absent: tenderness, meningismus - Respiratory Respiratory exam: Present: decreased breath sounds. Absent: respiratory distress, wheezes, rales, rhonchi, stridor - Cardiovascular Cardiovascular Exam: Present: normal rhythm, tachycardia, normal heart sounds. Absent: bradycardia, irregular rhythm, systolic murmur, diastolic murmur, rubs, gallop - GI/Abdominal GI/Abdominal exam: Present: soft, tenderness (Mild epigastric tenderness noted.). Absent: distended, guarding, rebound, rigid, pulsatile mass - Rectal Rectal exam: Present: deferred - Extremities Exam Extremities exam: Present: normal inspection (Upper extremity tremors noted), full ROM, other (2+ pulses noted in the bilateral upper and lower extremities. There is no palpable cord. negative Homans sign. Muscular compartments are soft. The pelvis is stable.). Absent: calf tenderness - Back Exam Back exam: Present: normal inspection. Absent: tenderness, CVA tenderness (R), CVA tenderness (L), paraspinal tenderness, vertebral tenderness - Neurological Exam Neurological exam: Present: alert, oriented X3, other (No facial droop. Tongue midline. Extraocular movements intact bilaterally. Facial sensation intact to light touch in V1, V2, V3 distribution bilaterally. 5 and a 5 strength in 4 extremities. Sensation intact to light touch in 4 extremities.) - Psychiatric Psychiatric exam: Present: anxious. Absent: homicidal ideation, suicidal ideation - Skin Skin exam: Present: warm, dry, intact, normal color. Absent: rash ED Course Vital Signs 01/04/21 01/04/21 01/04/21 17:17 17:57 18:00 Temperature 98.5 F Pulse Rate 112 H 105 H Respiratory 16 20 Rate Blood Pressure 151/94 151/94 Blood Pressure 134/94 [Left] O2 Sat by Pulse 99 99 Oximetry 01/04/21 01/04/21 01/04/21 18:16 18:30 18:46 Temperature Pulse Rate 101 H 102 H 113 H Respiratory 17 13 21 Rate Blood Pressure 151/94 154/105 154/105 Blood Pressure [Left] O2 Sat by Pulse 99 99 98 Oximetry 01/04/21 01/04/21 01/04/21 19:00 19:16 19:30 Temperature Pulse Rate 88 101 H 102 H Respiratory 25 H 14 18 Rate Blood Pressure 163/112 163/112 159/105 Blood Pressure [Left] O2 Sat by Pulse 100 94 Oximetry 01/04/21 01/04/21 01/04/21 19:46 20:00 20:24 Temperature Pulse Rate 89 88 Respiratory 16 18 Rate Blood Pressure 159/105 159/105 172/109 Blood Pressure [Left] O2 Sat by Pulse 33 L 85 Oximetry 01/04/21 01/04/21 01/04/21 20:30 20:46 21:00 Temperature Pulse Rate 87 89 91 H Respiratory 15 17 18 Rate Blood Pressure 139/84 139/84 137/77 Blood Pressure [Left] O2 Sat by Pulse 99 96 97 Oximetry 01/04/21 01/04/21 01/04/21 21:16 21:30 21:46 Temperature Pulse Rate 125 H 132 H 102 H Respiratory 21 19 12 Rate Blood Pressure 172/109 172/109 172/109 Blood Pressure [Left] O2 Sat by Pulse 98 99 Oximetry 01/04/21 22:00 Temperature Pulse Rate 97 H Respiratory 16 Rate Blood Pressure 138/116 Blood Pressure [Left] O2 Sat by Pulse 94 Oximetry - Reevaluation(s) Reevaluation #1: 01/04/21 22:18 Differential diagnosis, including but not limited to: Alcohol dependence, alcohol withdrawal, dehydration, electrolyte derangement, closed head injury, cervical spine injury, orthostasis, vagal event, structural cardiac disease Assessment and plan: 55-year-old gentleman, with known history of alcohol withdrawal seizures, hypertension, who presents to the ER today with a complaint of tachycardia, tremors, weakness, syncope, chest pain abdominal pain, and possible nausea and vomiting. The patient denies travel, surgery, immob ilization, DVT and pulmonary embolism risk factors. He has been ruled out for PE before in the past at this hospital. He has had a CT scan of the chest in the past which was negative for pulmonary embolism. On my initial examination, he is tachycardic, tremulous with tongue fasciculations, and obvious alcohol withdrawal. He required a total dose of 15 mg of Valium, given in increments of 5 mg x 3, to help control symptoms. His tachycardia resolved. He is found to be hypomagnesemic, and hyp ophosphatemic. He is also found to have evidence of dehydration, and metabolic acidosis, likely secondary to alcoholism. This patient meets criteria for admission and hospitalization secondary to the aforementioned. Because of his complaint of syncope, concern for alcoholism, a CT scan of the head and C-spine were obtained, and were negative for acute findings. His EKG is unchanged from prior, troponin negative x1, and CT scan of the abdomen pelvis is negative for acute findings. After aggressive medical intervention and therapy here in the emergency room, he is feeling improved, but requires admission for correction of the aforementioned especially given benzodiazepine requirements. Hospital physician is paged to arrange admission. 01/04/21 22:19 01/05/21 00:20 Dr Khanna to admit to [facility] ED Medical Decision Making - Lab Data Result diagrams: 01/04/21 18:31 01/04/21 18:31 Vital Signs 01/04/21 01/04/21 01/04/21 17:17 17:57 18:00 Temperature 98.5 F Pulse Rate 112 H 105 H Respiratory 16 20 Rate Blood Pressure 151/94 151/94 Blood Pressure 134/94 [Left] O2 Sat by Pulse 99 99 Oximetry 01/04/21 01/04/21 01/04/21 18:16 18:30 18:46 Temperature Pulse Rate 101 H 102 H 113 H Respiratory 17 13 21 Rate Blood Pressure 151/94 154/105 154/105 Blood Pressure [Left] O2 Sat by Pulse 99 99 98 Oximetry 01/04/21 01/04/21 01/04/21 19:00 19:16 19:30 Temperature Pulse Rate 88 101 H 102 H Respiratory 25 H 14 18 Rate Blood Pressure 163/112 163/112 159/105 Blood Pressure [Left] O2 Sat by Pulse 100 94 Oximetry 01/04/21 01/04/21 01/04/21 19:46 20:00 20:24 Temperature Pulse Rate 89 88 Respiratory 16 18 Rate Blood Pressure 159/105 159/105 172/109 Blood Pressure [Left] O2 Sat by Pulse 33 L 85 Oximetry 01/04/21 01/04/21 01/04/21 20:30 20:46 21:00 Temperature Pulse Rate 87 89 91 H Respiratory 15 17 18 Rate Blood Pressure 139/84 139/84 137/77 Blood Pressure [Left] O2 Sat by Pulse 99 96 97 Oximetry 01/04/21 01/04/21 01/04/21 21:16 21:30 21:46 Temperature Pulse Rate 125 H 132 H 102 H Respiratory 21 19 12 Rate Blood Pressure 172/109 172/109 172/109 Blood Pressure [Left] O2 Sat by Pulse 98 99 Oximetry 01/04/21 22:00 Temperature Pulse Rate 97 H Respiratory 16 Rate Blood Pressure 138/116 Blood Pressure [Left] O2 Sat by Pulse 94 Oximetry Lab Results 01/04/21 01/04/21 01/04/21 Range/Units 18:31 18:31 18:31 WBC 4.1 L (4.5-11.0) K/mm3 RBC 3.82 (3.65-5.03) M/mm3 Hgb 13.5 (11.8-15.2) gm/dl Hct 37.9 (35.5-45.6) % MCV 99 H (84-94) fl MCH 35 H (28-32) pg MCHC 36 H (32-34) % RDW 15.7 H (13.2-15.2) % Plt Count 288 (140-440) K/mm3 [place]ok % (Auto) [employer]ch[employer] Add Manual Diff Complete Total Counted 100 Seg Neutrophils % [employer] Seg Neuts % (Manual) 74.0 H (40.0-70.0) % Lymphocytes % (Manual) 18.0 (13.4-35.0) % Monocytes % (Manual) 6.0 (0.0-7.3) % Eosinophils % (Manual) 2.0 (0.0-4.3) % Nucleated RBC % Not Reportable Seg Neutrophils # Man 3.0 (1.8-7.7) K/mm3 Band Neutrophils # 0.0 K/mm3 Lymphocytes # (Manual) 0.7 L (1.2-5.4) K/mm3 Abs React Lymphs (Man) 0.0 K/mm3 Monocytes # (Manual) 0.2 (0.0-0.8) K/mm3 Eosinophils # (Manual) 0.1 (0.0-0.4) K/mm3 Basophils # (Manual) 0.0 (0.0-0.1) K/mm3 Metamyelocytes # 0.0 K/mm3 Myelocytes # 0.0 K/mm3 Promyelocytes # 0.0 K/mm3 Blast Cells # 0.0 K/mm3 WBC Morphology Not Reportable Hypersegmented Neuts Not Reportable Hyposegmented Neuts Not Reportable Hypogranular Neuts Not Reportable Smudge Cells Not Reportable Toxic Granulation Not Reportable Toxic Vacuolation Not Reportable Dohle Bodies Not Reportable Pelger-Huet Anomaly Not Reportable Annalise Rods Not Reportable Platelet Estimate Consistent w auto Clumped Platelets Not Reportable Plt Clumps, EDTA Not Reportable Large Platelets Not Reportable Giant Platelets Not Reportable Platelet Satelliting Not Reportable Plt Morphology Comment Not Reportable RBC Morphology Not Reportable Dimorphic RBCs Not Reportable Polychromasia Not Reportable Hypochromasia Not Reportable Poikilocytosis Not Reportable Anisocytosis Not Reportable Microcytosis Not Reportable Macrocytosis Not Reportable Spherocytes Not Reportable Pappenheimer Bodies Not Reportable Sickle Cells Not Reportable Target Cells Not Reportable Tear Drop Cells Not Reportable Ovalocytes Not Reportable Helmet Cells Not Reportable Espinosa-Kapowsin Bodies Not Reportable Bumpass Rings Not Reportable Nancy Cells Not Reportable Bite Cells Not Reportable Crenated Cell Not Reportable Elliptocytes Not Reportable Acanthocytes (Spur) Not Reportable Rouleaux Not Reportable Hemoglobin C Crystals Not Reportable Schistocytes Not Reportable Malaria parasites Not Reportable Rolando Bodies Not Reportable Hem Pathologist Commnt No PT (12.2-14.9) Sec. INR (0.87-1.13) APTT (24.2-36.6) Sec. Sodium 138 (137-145) mmol/L Potassium 4.4 (3.6-5.0) mmol/L Chloride 96.7 L (98-107) mmol/L Carbon Dioxide 20 L (22-30) mmol/L Anion Gap 26 mmol/L BUN 4 L (9-20) mg/dL Creatinine 0.5 L (0.8-1.3) mg/dL Estimated GFR > 60 ml/min BUN/Creatinine Ratio 8 % Glucose 86 (75-100) mg/dL Calcium 8.9 (8.4-10.2) mg/dL Phosphorus (2.5-4.5) mg/dL Magnesium (1.7-2.3) mg/dL Total Bilirubin 0.80 (0.1-1.2) mg/dL AST 84 H (5-40) units/L ALT 58 H (7-56) units/L Alkaline Phosphatase 77 (35-129) units/L Total Creatine Kinase (55-170) units/L Troponin T < 0.010 (0.00-0.029) ng/mL Total Protein 8.6 H (6.3-8.2) g/dL Albumin 4.3 (3.9-5) g/dL Albumin/Globulin Ratio 1.0 % Lipase 19 (13-60) units/L TSH (0.270-4.200) mlU/mL Thyroxine (T4) 6.4 (4.0-12.0) ug/dL Salicylates (2.8-20.0) mg/dL Acetaminophen (10.0-30.0) ug/mL Plasma/Serum Alcohol (0-0.07) % 01/04/21 01/04/21 01/04/21 Range/Units 18:31 18:31 18:31 WBC (4.5-11.0) K/mm3 RBC (3.65-5.03) M/mm3 Hgb (11.8-15.2) gm/dl Hct (35.5-45.6) % MCV (84-94) fl MCH (28-32) pg MCHC (32-34) % RDW (13.2-15.2) % Plt Count (140-440) K/mm3 [place]ok % (Auto) Add Manual Diff Total Counted Seg Neutrophils % Seg Neuts % (Manual) (40.0-70.0) % Lymphocytes % (Manual) (13.4-35.0) % Monocytes % (Manual) (0.0-7.3) % Eosinophils % (Manual) (0.0-4.3) % Nucleated RBC % Seg Neutrophils # Man (1.8-7.7) K/mm3 Band Neutrophils # K/mm3 Lymphocytes # (Manual) (1.2-5.4) K/mm3 Abs React Lymphs (Man) K/mm3 Monocytes # (Manual) (0.0-0.8) K/mm3 Eosinophils # (Manual) (0.0-0.4) K/mm3 Basophils # (Manual) (0.0-0.1) K/mm3 Metamyelocytes # K/mm3 Myelocytes # K/mm3 Promyelocytes # K/mm3 Blast Cells # K/mm3 WBC Morphology Hypersegmented Neuts Hyposegmented Neuts Hypogranular Neuts Smudge Cells Toxic Granulation Toxic Vacuolation Dohle Bodies Pelger-Huet Anomaly Annalise Rods Platelet Estimate Clumped Platelets Plt Clumps, EDTA Large Platelets Giant Platelets Platelet Satelliting Plt Morphology Comment RBC Morphology Dimorphic RBCs Polychromasia Hypochromasia Poikilocytosis Anisocytosis Microcytosis Macrocytosis Spherocytes Pappenheimer Bodies Sickle Cells Target Cells Tear Drop Cells Ovalocytes Helmet Cells Espinosa-Kapowsin Bodies [place]umpass Rings Nancy Cells Bite Cells Crenated Cell Elliptocytes Acanthocytes (Spur) Rouleaux Hemoglobin C Crystals Schistocytes Malaria parasites Rolando Bodies Hem Pathologist Commnt PT (12.2-14.9) Sec. INR (0.87-1.13) APTT (24.2-36.6) Sec. Sodium (137-145) mmol/L Potassium (3.6-5.0) mmol/L Chloride (98-107) mmol/L Carbon Dioxide (22-30) mmol/L Anion Gap mmol/L BUN (9-20) mg/dL Creatinine (0.8-1.3) mg/dL Estimated GFR ml/min BUN/Creatinine Ratio % Glucose (75-100) mg/dL Calcium (8.4-10.2) mg/dL Phosphorus 2.00 L (2.5-4.5) mg/dL Magnesium 1.40 L (1.7-2.3) mg/dL Total Bilirubin (0.1-1.2) mg/dL AST (5-40) units/L ALT (7-56) units/L Alkaline Phosphatase (35-129) units/L Total Creatine Kinase (55-170) units/L Troponin T < 0.010 (0.00-0.029) ng/mL Total Protein (6.3-8.2) g/dL Albumin (3.9-5) g/dL Albumin/Globulin Ratio % Lipase (13-60) units/L TSH 2.700 (0.270-4.200) mlU/mL Thyroxine (T4) (4.0-12.0) ug/dL Salicylates (2.8-20.0) mg/dL Acetaminophen (10.0-30.0) ug/mL Plasma/Serum Alcohol (0-0.07) % 01/04/21 01/04/21 01/04/21 Range/Units 18:31 18:31 18:31 WBC (4.5-11.0) K/mm3 RBC (3.65-5.03) M/mm3 Hgb (11.8-15.2) gm/dl Hct (35.5-45.6) % MCV (84-94) fl MCH (28-32) pg MCHC (32-34) % RDW (13.2-15.2) % Plt Count (140-440) K/mm3 Crook % (Auto) Add Manual Diff Total Counted Seg Neutrophils % Seg Neuts % (Manual) (40.0-70.0) % Lymphocytes % (Manual) (13.4-35.0) % Monocytes % (Manual) (0.0-7.3) % Eosinophils % (Manual) (0.0-4.3) % Nucleated RBC % Seg Neutrophils # Man (1.8-7.7) K/mm3 Band Neutrophils # K/mm3 Lymphocytes # (Manual) (1.2-5.4) K/mm3 Abs React Lymphs (Man) K/mm3 Monocytes # (Manual) (0.0-0.8) K/mm3 Eosinophils # (Manual) (0.0-0.4) K/mm3 Basophils # (Manual) (0.0-0.1) K/mm3 Metamyelocytes # K/mm3 Myelocytes # K/mm3 Promyelocytes # K/mm3 Blast Cells # K/mm3 WBC Morphology Hypersegmented Neuts Hyposegmented Neuts Hypogranular Neuts Smudge Cells Toxic Granulation Toxic Vacuolation Dohle Bodies Pelger-Huet Anomaly Annalise Rods Platelet Estimate Clumped Platelets Plt Clumps, EDTA Large Platelets Giant Platelets Platelet Satelliting Plt Morphology Comment RBC Morphology Dimorphic RBCs Polychromasia Hypochromasia Poikilocytosis Anisocytosis Microcytosis Macrocytosis Spherocytes Pappenheimer Bodies Sickle Cells Target Cells Tear Drop Cells Ovalocytes Helmet Cells Espinosa-Kapowsin Bodies [place] Rings [place] Cells Bite Cells Crenated Cell Elliptocytes Acanthocytes (Spur) Rouleaux Hemoglobin C Crystals Schistocytes Malaria parasites Rolando Bodies Hem Pathologist Commnt PT 12.6 (12.2-14.9) Sec. INR 0.89 (0.87-1.13) APTT 28.0 (24.2-36.6) Sec. Sodium (137-145) mmol/L Potassium (3.6-5.0) mmol/L Chloride (98-107) mmol/L Carbon Dioxide (22-30) mmol/L Anion Gap mmol/L BUN (9-20) mg/dL Creatinine (0.8-1.3) mg/dL Estimated GFR ml/min BUN/Creatinine Ratio % Glucose (75-100) mg/dL Calcium (8.4-10.2) mg/dL Phosphorus (2.5-4.5) mg/dL Magnesium (1.7-2.3) mg/dL Total Bilirubin (0.1-1.2) mg/dL AST (5-40) units/L ALT (7-56) units/L Alkaline Phosphatase (35-129) units/L Total Creatine Kinase 113 (55-170) units/L Troponin T (0.00-0.029) ng/mL Total Protein (6.3-8.2) g/dL Albumin (3.9-5) g/dL Albumin/Globulin Ratio % Lipase (13-60) units/L TSH (0.270-4.200) mlU/mL Thyroxine (T4) (4.0-12.0) ug/dL Salicylates < 0.3 L (2.8-20.0) mg/dL Acetaminophen (10.0-30.0) ug/mL Plasma/Serum Alcohol (0-0.07) % 01/04/21 01/04/21 Range/Units 18:31 18:31 WBC (4.5-11.0) K/mm3 RBC (3.65-5.03) M/mm3 Hgb (11.8-15.2) gm/dl Hct (35.5-45.6) % MCV (84-94) fl MCH (28-32) pg MCHC (32-34) % RDW (13.2-15.2) % Plt Count (140-440) K/mm3 Crook % (Auto) Add Manual Diff Total Counted Seg Neutrophils % Seg Neuts % (Manual) (40.0-70.0) % Lymphocytes % (Manual) (13.4-35.0) % Monocytes % (Manual) (0.0-7.3) % Eosinophils % (Manual) (0.0-4.3) % Nucleated RBC % Seg Neutrophils # Man (1.8-7.7) K/mm3 Band Neutrophils # K/mm3 Lymphocytes # (Manual) (1.2-5.4) K/mm3 Abs React Lymphs (Man) K/mm3 Monocytes # (Manual) (0.0-0.8) K/mm3 Eosinophils # (Manual) (0.0-0.4) K/mm3 Basophils # (Manual) (0.0-0.1) K/mm3 Metamyelocytes # K/mm3 Myelocytes # K/mm3 Promyelocytes # K/mm3 Blast Cells # K/mm3 WBC Morphology Hypersegmented Neuts Hyposegmented Neuts Hypogranular Neuts Smudge Cells Toxic Granulation Toxic Vacuolation Dohle Bodies Pelger-Huet Anomaly Annalise Rods Platelet Estimate Clumped Platelets Plt Clumps, EDTA Large Platelets Giant Platelets Platelet Satelliting Plt Morphology Comment RBC Morphology Dimorphic RBCs Polychromasia Hypochromasia Poikilocytosis Anisocytosis Microcytosis Macrocytosis Spherocytes Pappenheimer Bodies Sickle Cells Target Cells Tear Drop Cells Ovalocytes Helmet Cells Espinosa-Kapowsin Bodies Bumpass Rings Nancy Cells Bite Cells Crenated Cell Elliptocytes Acanthocytes (Spur) Rouleaux Hemoglobin C Crystals Schistocytes Malaria parasites Rolando Bodies Hem Pathologist Commnt PT (12.2-14.9) Sec. INR (0.87-1.13) APTT (24.2-36.6) Sec. Sodium (137-145) mmol/L Potassium (3.6-5.0) mmol/L Chloride (98-107) mmol/L Carbon Dioxide (22-30) mmol/L Anion Gap mmol/L BUN (9-20) mg/dL Creatinine (0.8-1.3) mg/dL Estimated GFR ml/min BUN/Creatinine Ratio % Glucose (75-100) mg/dL Calcium (8.4-10.2) mg/dL Phosphorus (2.5-4.5) mg/dL Magnesium (1.7-2.3) mg/dL Total Bilirubin (0.1-1.2) mg/dL AST (5-40) units/L ALT (7-56) units/L Alkaline Phosphatase (35-129) units/L Total Creatine Kinase (55-170) units/L Troponin T (0.00-0.029) ng/mL Total Protein (6.3-8.2) g/dL Albumin (3.9-5) g/dL Albumin/Globulin Ratio % Lipase (13-60) units/L TSH (0.270-4.200) mlU/mL Thyroxine (T4) (4.0-12.0) ug/dL Salicylates (2.8-20.0) mg/dL Acetaminophen 5.0 L (10.0-30.0) ug/mL Plasma/Serum Alcohol 0.18 H (0-0.07) % - EKG Data -: EKG Interpreted by Co EKG shows normal: sinus rhythm Rate: normal - EKG Data 01/04/21 22:16 The EKG is interpreted at 18: 39 Sinus rhythm, rate 95 bpm. Left axis deviation, left anterior fascicular block, poor R wave progression. QTc 493 ms, and left ventricular hypertrophy. Abnormal EKG. Not a STEMI. Unchanged from prior EKG from 04/19/2019 - Radiology Data Radiology results: pending, report reviewed, image reviewed CHEST 2 VIEWS INDICATION / CLINICAL INFORMATION: Chest Pain. COMPARISON: 07/14/2020 FINDINGS: SUPPORT DEVICES: None. HEART / MEDIASTINUM: No significa nt abnormality. LUNGS / PLEURA: No significant pulmonary or pleural abnormality. No pneumothorax. ADDITIONAL FINDINGS: No significant additional findings. IMPRESSION: 1. No acute findings. No interval change. Signer Name: Esperanza Baca MD Signed: 01/04/2021 4:[address] head/brain wo con INDICATION: syncope n/v etoh abuse. TECHNIQUE: Routine CT head without contrast. All CT scans at this location are performed using CT dose reduction for ALARA by means of automated exposure control. COMPARISON: Head CT on 07/14/2020 FINDINGS: BRAIN / INTRACRANIAL CONTENTS: No acute hemorrhage, mass effect, midline shift, or hydrocephalus. No appreciable acute large territorial or lacunar infarct. Stable mild global brain atrophy. ORBITS: No significant abnormality of visualized orbits. SINUSES / MASTOIDS: No significant abnormality of visualized sinuses and mastoid air cells. ADDITIONAL FINDINGS: None. IMPRESSION: 1. No acute intracranial abnormality. No adverse change from the prior exam. Signer Name: Oniel Mcaiel MD Signed: 01/04/2021 7:31 PM Workstation Name: [employer] CT CERVICAL SPINE WITHOUT CONTRAST INDICATION: syncope n/v etoh abuse. TECHNIQUE: Axial CT images of the spine were obtained. Sagittal and coronal reformatted images were produced. All CT scans at this location are performed using CT dose reduction for ALABaroFold by means of automated exposure control. COMPARISON: 07/14/2020 FINDINGS: ACUTE FRACTURE(S) OR SUBLUXATION: None. SPINAL DEGENERATIVE CHANGES: There are findings of DISH with large bridging anterior osteophytes at multiple levels. There is no appreciable significant spinal canal stenosis. PARASPINAL SOFT TISSUES: No soft tissue swelling or other acute abnormalities. ADDITIONAL FINDINGS: No significant additional findings. IMPRESSION: 1. No acute fracture or subluxation in the spine in neutral position. Signer Name: Oniel Maciel MD Signed: 01/04/2021 7:31 PM Workstation Name: [employer] COMPARISON: None available. TECHNIQUE: All CT scans at this facility use dose modulation, automated exposure control, iterative reconstruction or weight based dosing, when appropriate, to reduce radiation dose to as low as reasonably achievable. FINDINGS: Lung Bases: No significant abnormality. Skeletal System: No acute abnormality. There is mild chronic compression deformity along the superior endplate of T11. Healed left lower rib fractures are noted. 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 ABDOMEN: Liver: There is diffuse hepatic steatosis. Gallbladder: There are a few punctate stones in the gallbladder fundus. Bile Ducts: No significant abnormality. Pancreas: No significant abnormality. Spleen: No significant abnormality. Adrenals: No significant abnormality. Right Kidney: No significant abnormality. Left Kidney: No significant abnormality. Upper GI tract: No significant abnormality. Lymph Nodes: No significant adenopathy. Aorta: No significant abnormality. Additional Findings: No significant abnormality. PELVIS: Colon: No acute abnormality. Urinary Bladder and Distal Ureters: No significant abnormality. Appendix: No significant abnormality. Lymph Nodes: No significant adenopathy. Additional Findings: Prostate is mildly enlarged. IMPRESSION: 1. Within the limitations of non contrast technique, no acute process in the abdomen or pelvis. 2. Incidental findings, as above. Critical Care Time: Yes Critical care time in (mins) excluding proc time.: 35 Critical care attestation.: If time is entered above; I have spent that time in minutes in the direct care of this critically ill patient, excluding procedure time. ED Disposition Clinical Impression: Acute hyperactive alcohol withdrawal delirium, Hypomagnesemia, Hypophosphatemia, Metabolic acidosis, Syncope, Acute abdominal pain, Chest pain in adult Disposition: 09 ADMITTED INPATIENT Is pt being admited?: Yes Does the pt Need Aspirin: Yes Condition: Good Instructions: Nonspecific Chest Pain, Adult, Syncope (ED) Heart Score - HEART Score History: Slightly suspicious EKG: Non-specific Age: 45-65 Risk factors: 1-2 risk factors Troponin: < normal limit HEART Score: 3 - EKG Read Time Time EKG Completed: 18:39 EKG Read Time: 18:39 - Critical Actions Critical Actions: 0-3 pts:0.9-1.7%risk of adverse cardiac event.Candidate for discharge
[2021-01-04] MEDS ORDERED: ONDANSETRON 4 MG/2 ML INJ IV ONE (18:57)
[2021-01-04] MEDS ORDERED: PANTOPRAZOLE 40 MG INJ IV ONE (18:57)
[2021-01-04 19:22] LABS: Hematocrit 37.9 % (35.5-45.6); Hemoglobin 13.5 gm/dl (11.8-15.2); Mean Corpuscular HGB Conc 36 % (32-34); Mean Corpuscular Volume 99 fl (84-94); Platelet Count 288 K/mm3 (140-440); Red Blood Count 3.82 M/mm3 (3.65-5.03); Red Cell Distribution Width 15.7 % (13.2-15.2)
[2021-01-04 19:37] LABS: INR 0.89 (0.87-1.13)
[2021-01-04 19:43] LABS: Alanine Aminotransferase 58 units/L (7-56); Albumin 4.3 g/dL (3.9-5); Blood Urea Nitrogen 4 mg/dL (9-20); Calcium 8.9 mg/dL (8.4-10.2); Hemolysis Index 9
[2021-01-04 19:46] LABS: BUN/Creatinine Ratio 8
[2021-01-04] MEDS ORDERED: K-PHOS NEUTRAL 250 MG TAB PO ONE (20:33)
[2021-01-04] MEDS ORDERED: MAGNESIUM OXIDE 400 MG TAB PO STA (20:33)
[2021-01-04] MEDS ORDERED: MAGNESIUM SULFATE 2 GM/50 ML BAG IV ONE (20:33)
--- NOTE | 2021-01-04 20:35 | Cat Scan Report ---
CT head/brain wo con INDICATION: syncope n/v etoh abuse. TECHNIQUE: Routine CT head without contrast. All CT scans at this location are performed using CT dos e reduction for ALARA by means of automated exposure control. COMPARISON: Head CT on 07/14/2020 FINDINGS: BRAIN / INTRACRANIAL CONTENTS: No acute hemorrhage, mass effect, midline shift, or hydrocephalus. No appreciable acute large territorial or lacunar infarct. Stable mild global brain atrophy. ORBITS: No significant abnormality of visualized orbits. SINUSES / MASTOIDS: No significant abnormality of visualized sinuses and mastoid air cells. ADDITIONAL FINDINGS: None. IMPRESSION: 1. No acute intracranial abnormality. No adverse change from the prior exam. Signer Name: Oniel Maciel MD Signed: 01/04/2021 8:31 PM Workstation Name: [id number]
--- NOTE | 2021-01-04 20:36 | Cat Scan Report ---
CT CERVICAL SPINE WITHOUT CONTRAST INDICATION: syncope n/v etoh abuse. TECHNIQUE: Axial CT images of the spine were obtained. Sagittal and coronal reformatted images were produced. Al l CT scans at this location are performed using CT dose reduction for ALARA by means of automated exp osure control. COMPARISON: 07/14/2020 FINDINGS: ACUTE FRACTURE(S) OR SUBLUXATION: None. SPINAL DEGENERATIVE CHANGES: There are findings of DISH with large bridging anterior osteophytes at m ultiple levels. There is no appreciable significant spinal canal stenosis. PARASPINAL SOFT TISSUES: No soft tissue swelling or other acute abnormalities. ADDITIONAL FINDINGS: No significant additional findings. IMPRESSION: 1. No acute fracture or subluxation in the spine in neutral position. Signer Name: Oniel Maciel MD Signed: 01/04/2021 8:31 PM Workstation Name: [id number]
--- NOTE | 2021-01-04 20:40 | Cat Scan Report ---
CT ABDOMEN AND PELVIS WITHOUT IV CONTRAST INDICATION: abd pain n/v syncope. COMPARISON: None available. TECHNIQUE: All CT scans at this facility use dose modulation, automated exposure control, iterative reconstructi on or weight based dosing, when appropriate, to reduce radiation dose to as low as reasonably achieva ble. FINDINGS: Lung Bases: No significant abnormality. Skeletal System: No acute abnormality. There is mild chronic compression deformity along the superio r endplate of T11. Healed left lower rib fractures are noted. There is bilateral femoral head osteone crosis without collapse. ABDOMEN: Liver: There is diffuse hepatic steatosis. Gallbladder: There are a few punctate stones in the gallbladder fundus. Bile Ducts: No significant abnormality. Pancreas: No significant abnormality. Spleen: No significant abnormality. Adrenals: No significant abnormality. Right Kidney: No significant abnormality. Left Kidney: No significant abnormality. Upper GI tract: No significant abnormality. Lymph Nodes: No significant adenopathy. Aorta: No significant abnormality. Additional Findings: No significant abnormality. PELVIS: Colon: No acute abnormality. Urinary Bladder and Distal Ureters: No significant abnormality. Appendix: No significant abnormality. Lymph Nodes: No significant adenopathy. Additional Findings: Prostate is mildly enlarged. IMPRESSION: 1. Within the limitations of non contrast technique, no acute process in the abdomen or pelvis. 2. Incidental findings, as above. Signer Name: Errol Burgess MD Signed: 01/04/2021 8:36 PM Workstation Name: [id number]
[2021-01-04 20:52] LABS: Total Cells Counted 100
[2021-01-04 21:06] LABS: Platelet Estimate Consistent w Auto
[2021-01-04] MEDS: LORazepam 2 MG/ML VIAL IV PRN (22:12)
[2021-01-04] MEDS ORDERED: ASPIRIN 81 MG TAB CHEW PO ONE (22:21)
[2021-01-05] MEDS: LORazepam 2 MG/ML VIAL IV PRN ×5 (04:00→22:19)
[2021-01-05] MEDS ORDERED: oxyCODONE /ACETAMINOPHEN 5-325MG TAB PO PRN (05:28)
[2021-01-05] MEDS ORDERED: ALBUTEROL 2.5 MG/3 ML NEBU IH PRN (05:28)
[2021-01-05] MEDS ORDERED: ONDANSETRON 4 MG/2 ML INJ IV PRN (05:28)
[2021-01-05] MEDS ORDERED: HYDROmorphone 1 MG/1 ML INJ IV PRN (05:28)
[2021-01-05] MEDS ORDERED: ACETAMINOPHEN 325 MG TAB PO PRN ×2 (05:28)
[2021-01-05] MEDS ORDERED: NITROGLYCERIN 0.4 MG TAB SUBL SL PRN (05:28)
[2021-01-05] MEDS ORDERED: traMADol 50 MG TAB PO PRN (05:28)
[2021-01-05] MEDS ORDERED: traZODone 50 MG TAB PO PRN (05:32)
--- NOTE | 2021-01-05 05:40 | History and Physical Report ---
History of Present Illness Date of examination: 01/05/21 Date of admission: 01/05/21 Chief complaint: Chest pain Alcohol withdrawal History of present illness: 55-year-old gentleman with history of alcohol abuse was brought to the emergency room because of epigastric abdominal pain, chest pain, nausea, vomiting, weakness, tremors, and syncope/loss of consciousness yesterday. T The patient has a headache but no neck pain. The patient states he is not homicidal or suicidal. This patient had a CT scan of his chest performed in 2019, which demonstrated no pulmonary embolism. The patient did not drink alcohol for a few days. In the emergency room patient is found to have acute alcohol withdrawal. Patient plasma alcohol level is 0.18 also patient magnesium is 1.40 and potassium 4.4, phosphate 2.00. Initial troponin is 0.010 We are going to admit the patient with alcohol withdrawal. We put the patient on CIWA protocol Past History Past Medical History: arthritis, hypertension, seizures, other (Schizophrenia, a nxiety, gout irregular heartbeat beat, alcohol abuse hypothyroidism) Medications and Allergies Allergies Allergy/AdvReac Type Severity Reaction Status Date / Time No Known Allergies Allergy Verified 01/02/15 21:46 Home Medications Medication Instructions Recorded Confirmed Last Taken Type Colchicine 0.6 mg PO DAILY #5 tablet 01/25/16 04/21/19 Unknown Rx Ondansetron [Zofran Odt] 4 mg PO Q8HR PRN #20 tab.rapdis 10/05/16 04/21/19 Unknown Rx Folic Acid [Folvite] 1 mg PO QDAY #30 tablet 05/27/18 04/21/19 Unknown Rx Multivitamin Tab [Multiple Vitamin 1 each PO QDAY 30 Days tablet 05/27/18 04/21/19 Unknown Rx TAB (Theragran)] Meclizine HCl [Meclizine CHEW] 25 mg PO DAILY #20 tab.chew 06/02/18 04/21/19 Unknown Rx Gabapentin 300 mg PO BID #60 tab 04/21/19 Unknown Rx Thiamine [Vitamin B-1] 100 mg PO QDAY #30 tablet 04/21/19 Unknown Rx hydrOXYzine PAMOATE [Vistaril] 50 mg PO Q6H PRN #30 capsule 04/21/19 Unknown Rx levETIRAcetam [Keppra TAB] 500 mg PO BID #30 tablet 04/21/19 Unknown Rx traZODone [Desyrel] 50 mg PO QHS PRN #30 tablet 04/21/19 Unknown Rx levETIRAcetam [Keppra TAB] 500 mg PO BID #60 tablet 01/21/20 Unknown Rx chlordiazePOXIDE [Librium] 25 mg PO Q6H PRN #20 capsule 07/15/20 Unknown Rx Active Meds: Active Medications Acetaminophen (Acetaminophen 325 Mg Tab) 650 mg PO Q4H PRN PRN Reason: Pain MILD(1-3)/Fever >100.5/HUNG Acetaminophen (Acetaminophen 325 Mg Tab) 650 mg PO Q6H PRN PRN Reason: Pain, Mild (1-3) Albuterol (Albuterol 2.5 Mg/3 Ml Nebu) 2.5 mg IH Q4HRT PRN PRN Reason: Shortness Of Breath Albuterol/Ipratropium (Ipratropium/Albuterol Sulfate 3 Ml Ampul.Neb) 1 ampul IH Q6HRT AMBERLY Aspirin (Aspirin 81 Mg Tab Chew) 81 mg PO QDAY [facility]BER[facility] Atorvastatin Calcium (Atorvastatin 40 Mg Tab) 40 mg PO QHS AMBERLY Chlordiazepoxide HCl (Chlordiazepoxide 25 Mg Cap) 100 mg PO Q1HR PRN PRN Reason: CIWA-Ar Colchicine (Colchicine 0.6 Mg Tab) 0.6 mg PO DAILY [facility]BER[facility] Famotidine (Famotidine 20 Mg Tab) 20 mg PO BID AMBER[facility] Folic Acid (Folic Acid 1 Mg Tab) 1 mg PO QDAY [facility]BER[facility] Heparin Sodium (Porcine) (Heparin 5,000 Unit/1 Ml Vial) 5,000 unit SUB-Q Q8HR AMBERLY Hydromorphone HCl (Hydromorphone 1 Mg/1 Ml Inj) 0.5 mg IV Q3H PRN PRN Reason: Pain , Severe (7-10) Hydroxyzine Pamoate (Hydroxyzine Pamoate 50 Mg Cap) 50 mg PO Q6H PRN PRN Reason: Anxiety Dextrose/Sodium Chloride (D5/0.45ns) 1,000 mls @ 100 mls/hr IV DIRECT AMBERLY Levetiracetam (Levetiracetam 500 Mg Tab) 500 mg PO BID [facility]BER[facility] Lorazepam (Lorazepam 2 Mg/Ml Vial) 2 mg IV Q1HR PRN PRN Reason: CIWA-Ar 8- Last Admin: 10/10/21 04:00 Dose: 2 mg Documented by: Lorazepam (Lorazepam 2 Mg/Ml Vial) 4 mg IV Q1HR PRN PRN Reason: CIWA-Ar 16-25 Last Admin: 01/04/21 22:12 Dose: 4 mg Documented by: Lorazepam (Lorazepam 2 Mg/Ml Vial) 4 mg IV Q15MIN PRN PRN Reason: CIWA-Ar >25 Miscellaneous Medication (Gabapentin) 300 mg PO BID [facility] Miscellaneous Medication (Meclizine Hcl [Meclizine Chew]) 25 mg PO DAILY [facility] Multivitamins (Multivitamins ,Therapeutic Tab) 1 each PO QDAY [facility] Nitroglycerin (Nitroglycerin 0.4 Mg Tab Subl) 0.4 mg SL Q5M PRN PRN Reason: Chest Pain Ondansetron HCl (Ondansetron 4 Mg/2 Ml Inj) 4 mg IV Q8H PRN PRN Reason: Nausea And Vomiting Oxycodone/Acetaminophen (Oxycodone /Acetaminophen 5-325mg Tab) 1 tab PO Q6H PRN PRN Reason: Pain, Moderate (4-6) Sodium Chloride (Sodium Chloride 0.9% 10 Ml Flush Syringe) 10 ml IV BID AMBERLY Sodium Chloride (Sodium Chloride 0.9% 10 Ml Flush Syringe) 10 ml IV PRN PRN PRN Reason: LINE FLUSH Sodium Chloride (Sodium Chloride 0.9% 10 Ml Flush Syringe) 10 ml IV PRN PRN PRN Reason: LINE FLUSH Thiamine HCl (Thiamine 100 Mg Tab) 100 mg PO QDAY AMBERLY Tramadol HCl (Tramadol 50 Mg Tab) 50 mg PO Q6H PRN PRN Reason: Pain, Moderate (4-6) Trazodone HCl (Trazodone 50 Mg Tab) 50 mg PO QHS PRN PRN Reason: insomnia Review of Systems All systems: negative Constitutional: weakness, malaise, other (Headache) Cardiovascular: chest pain Gastrointestinal: abdominal pain, vomiting Musculoskeletal: low back pain Exam - Constitutional Vitals: Temp Pulse Resp BP Pulse Ox 98.5 F 110 H 23 165/82 99 01/04/21 17:17 01/05/21 03:45 01/05/21 03:45 01/05/21 03:45 01/05/21 03:45 General appearance: Present: mild distress, well-nourished - EENT Eyes: Present: PERRL ENT: hearing intact, clear oral mucosa - Neck Neck: Present: supple, normal ROM - Respiratory Respiratory effort: normal Respiratory: bilateral: CTA - Cardiovascular Heart Sounds: Present: S1 & S2. Absent: rub, click - Extremities Extremities: pulses symmetrical, No edema Peripheral Pulses: within normal limits - Abdominal General gastrointestinal: Present: soft, non-tender, non-distended, normal bowel sounds Male genitourinary: Present: normal - Integumentary Integumentary: Present: clear, warm, dry - Musculoskeletal Musculoskeletal: gait normal, strength equal bilaterally - Psychiatric Psychiatric: agitated - Neurologic Neurologic: CNII-XII intact, moves all extremities HEART Score - HEART Score EKG: Non-specific Age: 45-65 Risk factors: 1-2 risk factors Troponin: Troponin T < 0.010 ng/mL (0.00-0.029) 01/04/21 18: Troponin T < 0.010 ng/mL (0.00-0.029) 01/04/21 18: Troponin: < normal limit - Critical Actions Critical Actions: 0-3 pts:0.9-1.7%risk of adverse cardiac event.Candidate for discharge Results - Labs CBC & Chem 7: 01/04/21 18:31 01/04/21 18:31 Labs: Laboratory Last Values WBC 4.1 K/mm3 (4.5-11.0) L 01/04/21 18: RBC 3.82 M/mm3 (3.65-5.03) 01/04/21 18: Hgb 13.5 gm/dl (11.8-15.2) 01/04/21 18: Hct 37.9 % (35.5-45.6) 01/04/21 18:31 MCV 99 fl (84-94) H 01/04/21 18:31 MCH 35 pg (28-32) H 01/04/21 18: MCHC 36 % (32-34) H 01/04/21 18:31 RDW 15.7 % (13.2-15.2) H 01/04/21 18:31 Plt Count 288 K/mm3 (140-440) 01/04/21 18: [place] % (Auto) Inventory Taker 01/04/21 18:31 Add Manual Diff Complete 01/04/21 18: Total Counted 100 01/04/21 18: Seg Neutrophils % Inventory Taker 01/04/21 18: Seg Neuts % (Manual) 74.0 % (40.0-70.0) H 01/04/21 18:31 Lymphocytes % (Manual) 18.0 % (13.4-35.0) 01/04/21 18: Monocytes % (Manual) 6.0 % (0.0-7.3) 01/04/21 18:31 Eosinophils % (Manual) 2.0 % (0.0-4.3) 01/04/21 18: Nucleated RBC % Not Reportable 01/04/21 18: Seg Neutrophils # Man 3.0 K/mm3 (1.8-7.7) 01/04/21 18: Band Neutrophils # 0.0 K/mm3 01/04/21 18: Lymphocytes # (Manual) 0.7 K/mm3 (1.2-5.4) L 01/04/21 18: Abs React Lymphs (Man) 0.0 K/mm3 01/04/21 18: Monocytes # (Manual) 0.2 K/mm3 (0.0-0.8) 01/04/21 18: Eosinophils # (Manual) 0.1 K/mm3 (0.0-0.4) 01/04/21 18:31 Basophils # (Manual) 0.0 K/mm3 (0.0-0.1) 01/04/21 18: Metamyelocytes # 0.0 K/mm3 01/04/21 18: Myelocytes # 0.0 K/mm3 01/04/21 18:31 Promyelocytes # 0.0 K/mm3 01/04/21 18:31 Blast Cells # 0.0 K/mm3 01/04/21 18: WBC Morphology Not Reportable 01/04/21 18: Hypersegmented Neuts Not Reportable 01/04/21 18: Hyposegmented Neuts Not Reportable 01/04/21 18:31 Hypogranular Neuts Not Reportable 01/04/21 18:31 Smudge Cells Not Reportable 01/04/21 18: Toxic Granulation Not Reportable 01/04/21 18: Toxic Vacuolation Not Reportable 01/04/21 18:31 Dohle Bodies Not Reportable 01/04/21 18:31 Pelger-Huet Anomaly Not Reportable 01/04/21 18:31 Annalise Rods Not Reportable 01/04/21 18:31 Platelet Estimate Consistent w auto 01/04/21 18:31 Clumped Platelets Not Reportable 01/04/21 18:31 Plt Clumps, EDTA Not Reportable 01/04/21 18:31 Large Platelets Not Reportable 01/04/21 18:31 Giant Platelets Not Reportable 01/04/21 18:31 Platelet Satelliting Not Reportable 01/04/21 18:31 Plt Morphology Comment Not Reportable 01/04/21 18:31 RBC Morphology Not Reportable 01/04/21 18:31 Dimorphic RBCs Not Reportable 01/04/21 18:31 Polychromasia Not Reportable 01/04/21 18:31 Hypochromasia Not Reportable 01/04/21 18:31 Poikilocytosis Not Reportable 01/04/21 18:31 Anisocytosis Not Reportable 01/04/21 18:31 Microcytosis Not Reportable 01/04/21 18:31 Macrocytosis Not Reportable 01/04/21 18:31 Spherocytes Not Reportable 01/04/21 18:31 Pappenheimer Bodies Not Reportable 01/04/21 18:31 Sickle Cells Not Reportable 01/04/21 18:31 Target Cells Not Reportable 01/04/21 18:31 Tear Drop Cells Not Reportable 01/04/21 18:31 Ovalocytes Not Reportable 01/04/21 18:31 Helmet Cells Not Reportable 01/04/21 18:31 [place] Bodies Not Reportable 01/04/21 18:31 [place] Rings Not Reportable 01/04/21 18:31 Nancy Cells Not Reportable 01/04/21 18:31 Bite Cells Not Reportable 01/04/21 18:31 Crenated Cell Not Reportable 01/04/21 18:31 Elliptocytes Not Reportable 01/04/21 18:31 Acanthocytes (Spur) Not Reportable 01/04/21 18:31 Rouleaux Not Reportable 01/04/21 18:31 Hemoglobin C Crystals Not Reportable 01/04/21 18:31 Schistocytes Not Reportable 01/04/21 18:31 Malaria parasites Not Reportable 01/04/21 18:31 [place] Bodies Not Reportable 01/04/21 18:31 Hem Pathologist Commnt No 01/04/21 18:31 PT 12.6 Sec. (12.2-14.9) 01/04/21 18:31 INR 0.89 (0.87-1.13) 01/04/21 18:31 APTT 28.0 Sec. (24.2-36.6) 01/04/21 18:31 Sodium 138 mmol/L (137-145) 01/04/21 18:31 Potassium 4.4 mmol/L (3.6-5.0) 01/04/21 18:31 Chloride 96.7 mmol/L (98-107) L 01/04/21 18:31 Carbon Dioxide 20 mmol/L (22-30) L 01/04/21 18:31 Anion Gap 26 mmol/L 01/04/21 18:31 BUN 4 mg/dL (9-20) L 01/04/21 18:31 Creatinine 0.5 mg/dL (0.8-1.3) L 01/04/21 18:31 Estimated GFR > 60 ml/min 01/04/21 18:31 BUN/Creatinine Ratio 8 % 01/04/21 18:31 Glucose 86 mg/dL (75-100) 01/04/21 18:31 Calcium 8.9 mg/dL (8.4-10.2) 01/04/21 18:31 Phosphorus 2.00 mg/dL (2.5-4.5) L 01/04/21 18:31 Magnesium 1.40 mg/dL (1.7-2.3) L 01/04/21 18:31 Total Bilirubin 0.80 mg/dL (0.1-1.2) 01/04/21 18:31 AST 84 units/L (5-40) H 01/04/21 18:31 ALT 58 units/L (7-56) H 01/04/21 18:31 Alkaline Phosphatase 77 units/L (35-129) 01/04/21 18:31 Total Creatine Kinase 113 units/L (55-170) 01/04/21 18:31 Troponin T < 0.010 ng/mL (0.00-0.029) 01/04/21 18:31 Troponin T < 0.010 ng/mL (0.00-0.029) 01/04/21 18:31 Total Protein 8.6 g/dL (6.3-8.2) H 01/04/21 18:31 Albumin 4.3 g/dL (3.9-5) 01/04/21 18:31 Albumin/Globulin Ratio 1.0 % 01/04/21 18: Lipase 19 units/L (13-60) 01/04/21 18:31 TSH 2.700 mlU/mL (0.270-4.200) 01/04/21 18:31 Thyroxine (T4) 6.4 ug/dL (4.0-12.0) 01/04/21 18:31 Salicylates < 0.3 mg/dL (2.8-20.0) L 01/04/21 18: Acetaminophen 5.0 ug/mL (10.0-30.0) L 01/04/21 18:31 Plasma/Serum Alcohol 0.18 % (0-0.07) H 01/04/21 18:31 - Imaging and Cardiology CT Scan - head: report reviewed Assessment and Plan VTE prophylaxis?: Chemical Plan of care discussed with patient/family: Yes - Patient Problems (1) Alcohol withdrawal Current Visit: No Status: Acute Plan to address problem: Admit the patient to the medical telemetry. NPO. D5 half-normal saline at the rate of 100 cc/h. Thiamine 100 mg p.o. daily. Folic acid 1 mg p.o. daily. Put the patient on CIWA protocol. We will monitor the patient very closely. We also put the patient on banana bag (2) Chest pain in adult Current Visit: Yes Status: Acute Plan to address problem: Aspirin 81 mg p.o. daily. Lipitor 40 mg p.o. daily. We do the serial cardiac enzyme. We also do echocardiogram. Consult cardiology if needed (3) Hypomagnesemia Current Visit: Yes Status: Acute Plan to address problem: Patient is given 2 g of magnesium. Recheck magnesium in the morning (4) Hypophosphatemia Current Visit: Yes Status: Acute Plan to address problem: Phosphate is supplemented. Recheck phosphate level in the morning (5) HTN (hypertension) Current Visit: No Status: Chronic Plan to address problem: Hydralazine 10 mg IV every 6 hours as needed. We continue the home medication. We will monitor the blood pressure closely (6) Schizophrenia Current Visit: No Status: Chronic Plan to address problem: Stable continue the home medication (7) Nausea & vomiting Current Visit: Yes Status: Acute Plan to address problem: NPO. D5 half-normal saline at the rate of 100 cc/h. Pepcid 20 mg IV every 12 hours. Zofran 4 mg IV every 6 hours as needed. (8) DVT prophylaxis Current Visit: No Status: Acute Plan to address problem: Heparin 5000 units subcu every 8 hours for DVT prophylaxis. Pepcid 20 mg IV every 12 hours for GI prophylaxis. Patient is a full code
[2021-01-05] MEDS ORDERED: MAGNESIUM SULFATE 2 GM/50 ML BAG IV ONE (05:46)
[2021-01-05] MEDS: D5W/0.45% NACL 1,000 ML IV SCH ×2 (08:13→18:08)
[2021-01-05] MEDS: HEPARIN 5,000 UNIT/1 ML VIAL SUB-Q SCH ×3 (08:13→21:49)
[2021-01-05] MEDS ORDERED: MECLIZINE HCL 25 MG PO SCH (10:00)
[2021-01-05] MEDS ORDERED: NON-FORMULARY EACH (Gabapentin 300 MG) PO SCH (10:00)
[2021-01-05] MEDS: GABAPENTIN 300 MG CAP PO SCH ×2 (10:21→21:49)
[2021-01-05] MEDS: levETIRAcetam 500 MG TAB PO SCH ×2 (10:21→21:49)
[2021-01-05] MEDS: MECLIZINE 25 MG TAB PO SCH (10:21)
[2021-01-05] MEDS: FAMOTIDINE 20 MG TAB PO SCH ×2 (10:21→21:49)
[2021-01-05 10:31] LABS: Basophils # (Auto) 0.1 K/mm3 (0.0-0.1); Basophils % (Auto) 1.4 % (0.0-1.8); Eosinophils # (Auto) 0.1 K/mm3 (0.0-0.4); Eosinophils % (Auto) 1.8 % (0.0-4.3); Hematocrit 34.8 % (35.5-45.6); Hemoglobin 12.1 gm/dl (11.8-15.2); Lymphocytes # (Auto) 0.8 K/mm3 (1.2-5.4); Lymphocytes % (Auto) 19.6 % (13.4-35.0); Mean Corpuscular HGB Conc 35 % (32-34); Mean Corpuscular Volume 99 fl (84-94); Monocytes # (Auto) 0.3 K/mm3 (0.0-0.8); Monocytes % (Auto) 6.8 % (0.0-7.3); Platelet Count 223 K/mm3 (140-440); Red Blood Count 3.51 M/mm3 (3.65-5.03); Red Cell Distribution Width 15.5 % (13.2-15.2)
[2021-01-05 10:42] LABS: BUN/Creatinine Ratio 8; Blood Urea Nitrogen 4 mg/dL (9-20); Calcium 7.9 mg/dL (8.4-10.2); Hemolysis Index 7
[2021-01-05] MEDS: COLCHICINE 0.6 MG TAB PO SCH (10:47)
--- NOTE | 2021-01-05 15:01 | Event Note ---
Date: 01/05/21 The patient was evaluated today and was found to still be actively withdrawing from EtOH. The patient is extremely tremulous with asterixis and somnolence. Continue with the after mentioned plan.
[2021-01-05] MEDS: chlordiazePOXIDE 25 MG CAP PO PRN (16:28)
[2021-01-05] MEDS: IPRATROPIUM/ALBUTEROL SULFATE 3 ML AMPUL.NEB IH SCH ×2 (17:28→22:30)
[2021-01-05] MEDS ORDERED: THIAMINE 100 MG, FOLIC ACID 1 MG, MULTIPLE VITAMIN INJ, ADULT 10 ML in SODIUM CHLORIDE ... IV ONE (18:00)
[2021-01-06] MEDS: LORazepam 2 MG/ML VIAL IV PRN ×3 (01:40→13:01)
[2021-01-06] MEDS: IPRATROPIUM/ALBUTEROL SULFATE 3 ML AMPUL.NEB IH SCH ×4 (02:54→21:11)
[2021-01-06] MEDS: HEPARIN 5,000 UNIT/1 ML VIAL SUB-Q SCH ×3 (05:11→21:48)
[2021-01-06 06:13] LABS: Basophils % (Auto) 1.1 % (0.0-1.8); Eosinophils # (Auto) 0.1 K/mm3 (0.0-0.4); Eosinophils % (Auto) 3.4 % (0.0-4.3); Hematocrit 33.5 % (35.5-45.6); Hemoglobin 11.8 gm/dl (11.8-15.2); Lymphocytes # (Auto) 0.6 K/mm3 (1.2-5.4); Lymphocytes % (Auto) 18.5 % (13.4-35.0); Mean Corpuscular HGB Conc 35 % (32-34); Mean Corpuscular Volume 101 fl (84-94); Monocytes # (Auto) 0.2 K/mm3 (0.0-0.8); Platelet Count 153 K/mm3 (140-440); Red Blood Count 3.33 M/mm3 (3.65-5.03); Red Cell Distribution Width 15.2 % (13.2-15.2)
[2021-01-06 06:33] LABS: Alanine Aminotransferase 37 units/L (7-56); Albumin 3.3 g/dL (3.9-5); BUN/Creatinine Ratio 8; Blood Urea Nitrogen 4 mg/dL (9-20); Calcium 7.8 mg/dL (8.4-10.2); Hemolysis Index 49
[2021-01-06] MEDS: D5W/0.45% NACL 1,000 ML IV SCH ×2 (07:12→20:31)
[2021-01-06] MEDS ORDERED: CALCIUM GLUCONATE 2,000 MG in SODIUM CHLORIDE 0.9% 100 ML IV ONE (08:00)
[2021-01-06] MEDS: levETIRAcetam 500 MG TAB PO SCH ×2 (10:20→21:48)
[2021-01-06] MEDS: MECLIZINE 25 MG TAB PO SCH (10:20)
[2021-01-06] MEDS: THIAMINE 100 MG TAB PO SCH (10:20)
[2021-01-06] MEDS: FOLIC ACID 1 MG TAB PO SCH (10:20)
[2021-01-06] MEDS: GABAPENTIN 300 MG CAP PO SCH ×2 (10:20→21:48)
[2021-01-06] MEDS: ASPIRIN 81 MG TAB CHEW PO SCH (10:20)
[2021-01-06] MEDS: COLCHICINE 0.6 MG TAB PO SCH (10:20)
[2021-01-06] MEDS: K-PHOS NEUTRAL 250 MG TAB PO SCH ×4 (10:21→21:48)
[2021-01-06] MEDS: MAGNESIUM OXIDE 400 MG TAB PO SCH (10:21)
[2021-01-06] MEDS: FAMOTIDINE 20 MG TAB PO SCH ×2 (10:21→21:48)
[2021-01-06] MEDS: MULTIVITAMINS ,THERAPEUTIC TAB PO SCH (10:21)
[2021-01-06] MEDS: chlordiazePOXIDE 25 MG CAP PO PRN ×2 (10:25→22:56)
--- NOTE | 2021-01-06 11:00 | Electrocardiograph Report ---
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
--- NOTE | 2021-01-06 11:02 | Electrocardiograph Report ---
[facility], [place] Test Date: 2021-01-04 Test Time: 18:39:09 Pat Name: MAIA DRISCOLL Department: Room: A464 1 Gender: M Handyman: MANNY : 1965 Requested By: CHATA BRADSHAW Order Number: [id number] Reading MD: Toni Lopez Measurements Intervals [place] Rate: 95 P: 39 HI: 174 QRS: -32 QRSD: 114 T: 25 QT: 392 QTc: 493 Interpretive Statements Sinus rhythm Left ventricular hypertrophy Compared to ECG 01/04/2021 17:33:53 Electronically Signed On 01-06-2021 11:02:39 EDT by Toni Lopez
--- NOTE | 2021-01-06 14:22 | Progress Note ---
Assessment and Plan Assessment and plan: 55-year-old gentleman with history of alcohol abuse was brought to the emergency room because of epigastric abdominal pain, chest pain, nausea, vomiting, weakness, tremors, and syncope/loss of consciousness who is being managed for EtOH withdrawals. #Alcohol withdrawal #Alcohol dependence #Counseling on alcohol cessation -Continue telemetry -Continue D5 half-normal saline at 100 cc/hour, p.o. thiamine 100 mg daily, p.o. folic acid 1 mg daily -Continue CIWA protocol as patient is still actively having withdrawals. Will reorder CMP in the morning. -Constant sleepiness yet arousable. Discontinuing trazodone -Counseled patient at length about the importance of alcohol cessation and eventual sequela of continued alcohol excess. Patient did not want to hear said counseling. -Time: +10 minutes #Nausea and vomiting-resolved -Continue IV Zofran 4 mg every 6 hours as needed #Acute coronary syndrome-resolved -Serial troponins negative -Continue ASA 81 mg daily, atorvastatin 40 mg daily. -TTE pending. Cardiology consulted upon presentation. -Continue to monitor #Hypertension -Continue home antihypertensives -Continue IV hydralazine 10 mg every 6 hours as needed for SBP >160 #Hypocalcemia #Hypomagnesemia #Hypophosphatemia -Repleted. Continue to monitor. #Schizophrenia -Continue home Keppra 500 mg twice daily (3) Hypomagnesemia Current Visit: Yes Status: Acute Plan to address problem: Patient is given 2 g of magnesium. Recheck magnesium in the morning (4) Hypophosphatemia Current Visit: Yes Status: Acute Plan to address problem: Phosphate is supplemented. Recheck phosphate level in the morning (6) Schizophrenia Current Visit: No Status: Chronic Plan to address problem: Stable continue the home medication (8) DVT prophylaxis Current Visit: No Status: Acute Plan to address problem: Heparin 5000 units subcu every 8 hours for DVT prophylaxis. Pepcid 20 mg IV every 12 hours for GI prophylaxis. Patient is a full code Disposition Plan: Continue medical management. Total Time Spent with Patient (Minutes): 25 History Interval history: No acute events overnight. Hospitalist Physical - Constitutional Vitals: Temp Pulse Resp BP Pulse Ox 98.0 F 87 20 137/90 98 01/06/21 07:44 01/06/21 11:36 01/06/21 11:36 01/06/21 07:44 01/06/21 10:00 General appearance: Present: mild distress, well-nourished HEART Score - HEART Score EKG: Non-specific Age: 45-65 Risk factors: 1-2 risk factors Troponin: Troponin T < 0.010 ng/mL (0.00-0.029) 01/05/21 10:05 Troponin: < normal limit - Critical Actions Critical Actions: 0-3 pts:0.9-1.7%risk of adverse cardiac event.Candidate for discharge Results - Labs CBC & Chem 7: 01/06/21 04:31 01/06/21 04:31 Labs: Laboratory Last Values WBC 3.2 K/mm3 (4.5-11.0) L 01/06/21 04:31 RBC 3.33 M/mm3 (3.65-5.03) L 01/06/21 04:31 Hgb 11.8 gm/dl (11.8-15.2) 01/06/21 04:31 Hct 33.5 % (35.5-45.6) L 01/06/21 04:31 MCV 101 fl (84-94) H 01/06/21 04:31 MCH 35 pg (28-32) H 01/06/21 04:31 MCHC 35 % (32-34) H 01/06/21 04:31 RDW 15.2 % (13.2-15.2) 01/06/21 04:31 Plt Count 153 K/mm3 (140-440) 01/06/21 04:31 Lymph % (Auto) 18.5 % (13.4-35.0) 01/06/21 04:31 [place] % (Auto) 5.0 % (0.0-7.3) 01/06/21 04:31 Eos % (Auto) 3.4 % (0.0-4.3) 01/06/21 04:31 Baso % (Auto) 1.1 % (0.0-1.8) 01/06/21 04:31 Lymph # (Auto) 0.6 K/mm3 (1.2-5.4) L 01/06/21 04:31 [place] # (Auto) 0.2 K/mm3 (0.0-0.8) 01/06/21 04:31 Eos # (Auto) 0.1 K/mm3 (0.0-0.4) 01/06/21 04:31 Baso # (Auto) 0.0 K/mm3 (0.0-0.1) 01/06/21 04:31 Add Manual Diff Complete 01/04/21 18:31 Total Counted 100 01/04/21 18:31 Seg Neutrophils % 72.0 % (40.0-70.0) H 01/06/21 04:31 Seg Neuts % (Manual) 74.0 % (40.0-70.0) H 01/04/21 18:31 Lymphocytes % (Manual) 18.0 % (13.4-35.0) 01/04/21 18: Monocytes % (Manual) 6.0 % (0.0-7.3) 01/04/21 18: Eosinophils % (Manual) 2.0 % (0.0-4.3) 01/04/21 18:31 Nucleated RBC % Not Reportable 01/04/21 18: Seg Neutrophils # 2.3 K/mm3 (1.8-7.7) 01/06/21 04:31 Seg Neutrophils # Man 3.0 K/mm3 (1.8-7.7) 01/04/21 18:31 Band Neutrophils # 0.0 K/mm3 01/04/21 18:31 Lymphocytes # (Manual) 0.7 K/mm3 (1.2-5.4) L 01/04/21 18:31 Abs React Lymphs (Man) 0.0 K/mm3 01/04/21 18: Monocytes # (Manual) 0.2 K/mm3 (0.0-0.8) 01/04/21 18:31 Eosinophils # (Manual) 0.1 K/mm3 (0.0-0.4) 01/04/21 18:31 Basophils # (Manual) 0.0 K/mm3 (0.0-0.1) 01/04/21 18: Metamyelocytes # 0.0 K/mm3 01/04/21 18:31 Myelocytes # 0.0 K/mm3 01/04/21 18:31 Promyelocytes # 0.0 K/mm3 01/04/21 18:31 Blast Cells # 0.0 K/mm3 01/04/21 18:31 WBC Morphology Not Reportable 01/04/21 18:31 Hypersegmented Neuts Not Reportable 01/04/21 18:31 Hyposegmented Neuts Not Reportable 01/04/21 18:31 Hypogranular Neuts Not Reportable 01/04/21 18:31 Smudge Cells Not Reportable 01/04/21 18:31 Toxic Granulation Not Reportable 01/04/21 18:31 Toxic Vacuolation Not Reportable 01/04/21 18:31 Dohle Bodies Not Reportable 01/04/21 18:31 Pelger-Huet Anomaly Not Reportable 01/04/21 18:31 Annalise Rods Not Reportable 01/04/21 18:31 Platelet Estimate Consistent w auto 01/04/21 18:31 Clumped Platelets Not Reportable 01/04/21 18:31 Plt Clumps, EDTA Not Reportable 01/04/21 18:31 Large Platelets Not Reportable 01/04/21 18:31 Giant Platelets Not Reportable 01/04/21 18:31 Platelet Satelliting Not Reportable 01/04/21 18:31 Plt Morphology Comment Not Reportable 01/04/21 18:31 RBC Morphology Not Reportable 01/04/21 18:31 Dimorphic RBCs Not Reportable 01/04/21 18:31 Polychromasia Not Reportable 01/04/21 18:31 Hypochromasia Not Reportable 01/04/21 18:31 Poikilocytosis Not Reportable 01/04/21 18:31 Anisocytosis Not Reportable 01/04/21 18:31 Microcytosis Not Reportable 01/04/21 18:31 Macrocytosis Not Reportable 01/04/21 18:31 Spherocytes Not Reportable 01/04/21 18:31 Pappenheimer Bodies Not Reportable 01/04/21 18:31 Sickle Cells Not Reportable 01/04/21 18:31 Target Cells Not Reportable 01/04/21 18:31 Tear Drop Cells Not Reportable 01/04/21 18:31 Ovalocytes Not Reportable 01/04/21 18:31 Helmet Cells Not Reportable 01/04/21 18:31 [place] Bodies Not Reportable 01/04/21 18:31 [place] Rings Not Reportable 01/04/21 18:31 [place] Cells Not Reportable 01/04/21 18:31 Bite Cells Not Reportable 01/04/21 18:31 Crenated Cell Not Reportable 01/04/21 18:31 Elliptocytes Not Reportable 01/04/21 18:31 Acanthocytes (Spur) Not Reportable 01/04/21 18:31 Rouleaux Not Reportable 01/04/21 18:31 Hemoglobin C Crystals Not Reportable 01/04/21 18:31 Schistocytes Not Reportable 01/04/21 18:31 Malaria parasites Not Reportable 01/04/21 18:31 [place] Bodies Not Reportable 01/04/21 18:31 Hem Pathologist Commnt No 01/04/21 18:31 PT 12.6 Sec. (12.2-14.9) 01/04/21 18:31 INR 0.89 (0.87-1.13) 01/04/21 18:31 APTT 28.0 Sec. (24.2-36.6) 01/04/21 18:31 Sodium 136 mmol/L (137-145) L 01/06/21 04:31 Potassium 3.7 mmol/L (3.6-5.0) 01/06/21 04:31 Chloride 102.4 mmol/L (98-107) 01/06/21 04:31 Carbon Dioxide 20 mmol/L (22-30) L 01/06/21 04:31 Anion Gap 17 mmol/L 01/06/21 04:31 BUN 4 mg/dL (9-20) L 01/06/21 04:31 Creatinine 0.5 mg/dL (0.8-1.3) L 01/06/21 04:31 Estimated GFR > 60 ml/min 01/06/21 04:31 BUN/Creatinine Ratio 8 % 01/06/21 04:31 Glucose 98 mg/dL (75-100) 01/06/21 04:31 Calcium 7.8 mg/dL (8.4-10.2) L 01/06/21 04:31 Phosphorus 1.90 mg/dL (2.5-4.5) L 01/06/21 04:31 Magnesium 1.60 mg/dL (1.7-2.3) L 01/06/21 04:31 Total Bilirubin 0.90 mg/dL (0.1-1.2) 01/06/21 04:31 AST 51 units/L (5-40) H 01/06/21 04:31 ALT 37 units/L (7-56) 01/06/21 04:31 Alkaline Phosphatase 61 units/L (35-129) 01/06/21 04:31 Total Creatine Kinase 113 units/L (55-170) 01/04/21 18:31 Troponin T < 0.010 ng/mL (0.00-0.029) 01/05/21 10:05 Total Protein 7.1 g/dL (6.3-8.2) 01/06/21 04:31 Albumin 3.3 g/dL (3.9-5) L 01/06/21 04:31 Albumin/Globulin Ratio 0.9 % 01/06/21 04:31 Lipase 19 units/L (13-60) 01/04/21 18:31 TSH 2.700 mlU/mL (0.270-4.200) 01/04/21 18:31 Thyroxine (T4) 6.4 ug/dL (4.0-12.0) 01/04/21 18:31 Salicylates < 0.3 mg/dL (2.8-20.0) L 01/04/21 18:31 Acetaminophen 5.0 ug/mL (10.0-30.0) L 01/04/21 18:31 Plasma/Serum Alcohol 0.18 % (0-0.07) H 01/04/21 18:31 Simmons/IV: Voiding Method Urinal Active Medications - Current Medications Current Medications: Generic Name Dose Route Start Last Admin Trade Name Freq PRN Reason Stop Dose Admin Acetaminophen 650 mg 01/05/21 05:28 Acetaminophen 325 Mg Tab PO Q4H PRN Pain MILD(1-3)/Fever >100.5/HUNG Albuterol 2.5 mg 01/05/21 05:28 Albuterol 2.5 Mg/3 Ml Nebu IH Q4HRT PRN Shortness Of Breath Albuterol/Ipratropium 1 ampul 01/05/21 08:00 01/06/21 11:36 Ipratropium/Albuterol Sulfate 3 Ml Ampul.Neb IH 1 ampul Q6HRT AMBERLY Administration Aspirin 81 mg 01/06/21 10:00 01/06/21 10:20 Aspirin 81 Mg Tab Chew PO 81 mg QDAY AMBERLY Administration Atorvastatin Calcium 40 mg 01/05/21 22:00 01/05/21 21:49 Atorvastatin 40 Mg Tab PO Not Given QHS AMBERLY Chlordiazepoxide HCl 100 mg 01/04/21 17:56 01/06/21 10:25 Chlordiazepoxide 25 Mg Cap PO 100 mg Q1HR PRN Administration [facility] 16-25 Colchicine 0.6 mg 01/05/21 10:00 01/06/21 10:20 Colchicine 0.6 Mg Tab PO 0.6 mg DAILY AMBERLY Administration Famotidine 20 mg 01/05/21 10:00 01/06/21 10:21 Famotidine 20 Mg Tab PO 20 mg BID AMBERLY Administration Folic Acid 1 mg 01/06/21 10:00 01/06/21 10:20 Folic Acid 1 Mg Tab PO 1 mg QDAY AMBERLY Administration Gabapentin 300 mg 01/05/21 10:00 01/06/21 10:20 Gabapentin 300 Mg Cap PO 300 mg BID AMBERLY Administration Heparin Sodium (Porcine) 5,000 unit 01/05/21 06:00 01/06/21 05:11 Heparin 5,000 Unit/1 Ml Vial SUB-Q Not Given Q8HR AMBERLY Hydromorphone HCl 0.5 mg 01/05/21 05:28 Hydromorphone 1 Mg/1 Ml Inj IV Q3H PRN Pain , Severe (7-10) Hydroxyzine Pamoate 50 mg 01/05/21 05:32 Hydroxyzine Pamoate 50 Mg Cap PO Q6H PRN Anxiety Dextrose/Sodium Chloride 1,000 mls @ 100 mls/hr 01/05/21 06:00 01/06/21 07:12 D5/0.45ns IV 100 mls/hr DIRECT AMBERLY Administration Levetiracetam 500 mg 01/05/21 10:00 01/06/21 10:20 Levetiracetam 500 Mg Tab PO 500 mg BID AMBERLY Administration Lorazepam 2 mg 01/04/21 17:56 01/06/21 13:01 Lorazepam 2 Mg/Ml Vial IV 2 mg Q1HR PRN Administration [facility] 8-15 Lorazepam 4 mg 01/04/21 17:56 01/06/21 05:08 Lorazepam 2 Mg/Ml Vial IV 4 mg Q1HR PRN Administration [facility] 16-25 Lorazepam 4 mg 01/04/21 17:56 Lorazepam 2 Mg/Ml Vial IV Q15MIN PRN CIWA-Ar >25 Magnesium Oxide 400 mg 01/06/21 10:00 01/06/21 10:21 Magnesium Oxide 400 Mg Tab PO 400 mg QDAY AMBERLY Administration Meclizine HCl 25 mg 01/05/21 10:00 01/06/21 10:20 Meclizine 25 Mg Tab PO 25 mg DAILY AMBERLY Administration Multivitamins 1 each 01/06/21 10:00 01/06/21 10:21 Multivitamins ,Therapeutic Tab PO 1 each QDAY AMBERLY Administration Nitroglycerin 0.4 mg 01/05/21 05:28 Nitroglycerin 0.4 Mg Tab Subl SL Q5M PRN Chest Pain Ondansetron HCl 4 mg 01/05/21 05:28 Ondansetron 4 Mg/2 Ml Inj IV Q8H PRN Nausea And Vomiting Oxycodone/Acetaminophen 1 tab 01/05/21 05:28 Oxycodone /Acetaminophen 5-325mg Tab PO Q6H PRN Pain, Moderate (4-6) Sodium Chloride 10 ml 01/05/21 10:00 01/06/21 10:22 Sodium Chloride 0.9% 10 Ml Flush Syringe IV 10 ml BID AMBERLY Administration Sodium Chloride 10 ml 01/05/21 05:28 Sodium Chloride 0.9% 10 Ml Flush Syringe IV PRN PRN LINE FLUSH Sodium Phosphate 250 mg 01/06/21 10:00 01/06/21 10:21 K-Phos Neutral 250 Mg Tab PO 01/07/21 10:00 250 mg QID AMBERLY Administration Thiamine HCl 100 mg 01/06/21 10:00 01/06/21 10:20 Thiamine 100 Mg Tab PO 100 mg QDAY AMBERLY Administration Tramadol HCl 50 mg 01/05/21 05:28 Tramadol 50 Mg Tab PO Q6H PRN Pain, Moderate (4-6) Trazodone HCl 50 mg 01/05/21 05:32 Trazodone 50 Mg Tab PO QHS PRN insomnia
[2021-01-07] MEDS: IPRATROPIUM/ALBUTEROL SULFATE 3 ML AMPUL.NEB IH SCH ×3 (02:38→14:57)
[2021-01-07] MEDS: chlordiazePOXIDE 25 MG CAP PO PRN ×2 (05:13→11:18)
[2021-01-07] MEDS: HEPARIN 5,000 UNIT/1 ML VIAL SUB-Q SCH ×2 (05:28→14:10)
[2021-01-07 09:25] LABS: Blood Urea Nitrogen 4 mg/dL (9-20); Calcium 8.2 mg/dL (8.4-10.2); Hemolysis Index 30
[2021-01-07 09:35] LABS: Basophils % (Auto) 0.7 % (0.0-1.8); Eosinophils # (Auto) 0.2 K/mm3 (0.0-0.4); Hematocrit 33.3 % (35.5-45.6); Hemoglobin 11.6 gm/dl (11.8-15.2); Mean Corpuscular HGB Conc 35 % (32-34); Mean Corpuscular Volume 101 fl (84-94); Monocytes # (Auto) 0.2 K/mm3 (0.0-0.8); Monocytes % (Auto) 5.3 % (0.0-7.3); Platelet Count 142 K/mm3 (140-440); Red Cell Distribution Width 15.3 % (13.2-15.2)
[2021-01-07 09:46] LABS: BUN/Creatinine Ratio 8
[2021-01-07 09:50] VITALS: BP 136/82
--- NOTE | 2021-01-07 10:47 | Electrocardiograph Report ---
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
[2021-01-07] MEDS: FOLIC ACID 1 MG TAB PO SCH (11:11)
[2021-01-07] MEDS: GABAPENTIN 300 MG CAP PO SCH (11:11)
[2021-01-07] MEDS: THIAMINE 100 MG TAB PO SCH (11:11)
[2021-01-07] MEDS: MULTIVITAMINS ,THERAPEUTIC TAB PO SCH (11:11)
[2021-01-07] MEDS: levETIRAcetam 500 MG TAB PO SCH (11:11)
[2021-01-07] MEDS: FAMOTIDINE 20 MG TAB PO SCH (11:12)
[2021-01-07] MEDS: K-PHOS NEUTRAL 250 MG TAB PO SCH (11:12)
[2021-01-07] MEDS: MECLIZINE 25 MG TAB PO SCH (11:12)
[2021-01-07] MEDS: ASPIRIN 81 MG TAB CHEW PO SCH (11:12)
[2021-01-07] MEDS: MAGNESIUM OXIDE 400 MG TAB PO SCH (11:12)
[2021-01-07] MEDS: COLCHICINE 0.6 MG TAB PO SCH (11:12)
[2021-01-07] MEDS ORDERED: MAGNESIUM SULFATE 4 GM/100 ML BAG IV ONE (15:00)
--- NOTE | 2021-01-07 16:05 | Discharge Summary ---
Providers - Providers Date of Admission: 01/06/21 14:13 Date of discharge: 01/07/21 Attending physician: ADOLFO LAWSON MD 01/05/21 Consult to Cardiac Rehabilitation [CONS] Routine Reason For Exam: Phase I Primary care physician: KEY CARRIER Hospitalization Reason for admission: Abdominal pain and near syncope Condition: Good Hospital course: 55-year-old male with a history of alcohol abuse who presented with near syncope, epigastric abdominal pain, nausea and vomiting. He was admitted for acute alcohol withdrawal. CT abdomen pelvis showed a mild chronic compression deformity of T11 along with healed left lower rib fractures and bilateral femoral head osteonecrosis without collapse. There was no acute process found in abdomen or pelvis. CT head and cervical spine were both negative for acute findings. Echocardiogram showed normal ejection fraction. Nausea and vomiting resolved. He was treated for electrolyte abnormalities. He was counseled on the importance of alcohol cessation. Once stable he was discharged home. Disposition: 01 HOME / SELF CARE / HOMELESS Final Discharge Diagnosis (Prints w/discharge instructions): Alcohol withdrawal. Alcohol dependence. Elevated troponin Time spent for discharge: 20 minutes Core Measure Documentation - Palliative Care Palliative Care/ Comfort Measures: Not Applicable - Core Measures Any of the following diagnoses?: none Exam - Physical Exam Narrative exam: GENERAL: Well-developed well-nourished. In bed bed in no acute distress. CHEST/LUNGS: CTAB on room air HEART/CARDIOVASCULAR: RRR. No murmur, rubs or gallops appreciated. ABDOMEN: +BS. NT/ND. EXTREMITIES: No cyanosis, clubbing or edema. PSYCH: Cooperative. - Constitutional Vitals: Temp Pulse Resp BP Pulse Ox 98.2 F 99 H 20 136/82 98 01/07/21 03:50 01/07/21 14:57 01/07/21 14:57 01/07/21 08:43 01/07/21 11:00 Plan Care Plan Goals: Cut back on drinking. Follow-up with your primary care doctor within 1 week. Avoid driving until cleared by primary care. Please take medications as prescribed. Assessment: Symptoms improved while inpatient. Patient counseled on alcohol dependence, not receptive. Imaging was negative for acute abnormalities. His nausea and vomiting resolved. Echocardiogram was performed. Patient was adamant about leaving prior to repletion of electrolytes and final echocardiogram reading. Patient agreed to being called at [phone] about his echocardiogram results. Patient was ambulatory without symptoms and discharged home. Follow up with: PRIMARY CARE, [Primary Care Provider] - 3-5 Days Prescriptions: AtorvaSTATin [Lipitor] 40 mg PO QHS 30 Days #30 tablet Aspirin [Aspirin BABY CHEW TAB] 81 mg PO QDAY 30 Days #30 tab.chew Folic Acid [Folvite] 1 mg PO QDAY 30 Days #30 tablet Multivitamin Tab [Multiple Vitamin TAB (Theragran)] 1 each PO QDAY 30 Days #30 tablet Nitroglycerin [Nitrostat] 0.4 mg SL Q5M PRN 30 Days #30 tablet PRN Reason: Chest Pain
--- NOTE | 2021-01-15 10:18 | Electrocardiograph Report ---
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
== END 2021-01-07 17:24 | disposition home or self-care (01) | DRG 311 ==
LOC: ED 17:03 → 4A 01-05 00:21 → OBSVTOIN 01-06 14:13
PROVIDERS: ADMIT Hospitalist; ATTEND Student in an Organized Health Care Education/Training Program
DX: I24.9 Acute ischemic heart disease, unspecified (principal); E87.2 Acidosis; F10.231 Alcohol dependence with withdrawal delirium; M19.90 Unspecified osteoarthritis, unspecified site; I10 Essential (primary) hypertension; F41.9 Anxiety disorder, unspecified; F20.9 Schizophrenia, unspecified; M10.9 Gout, unspecified; E03.9 Hypothyroidism, unspecified; E83.51 Hypocalcemia; E83.42 Hypomagnesemia; E83.39 Other disorders of phosphorus metabolism; Y90.9 Presence of alcohol in blood, level not specified; Z79.899 Other long term (current) drug therapy; Z71.41 Alcohol abuse counseling and surveillance of alcoholic
CPT/HCPCS: 36415; 70450; 71046; 72125; 74176; 80048; 80053; 80320; 82550; 83690; 83735; 84100; 84436; 84443; 84484; 85007; 85025; 85610; 85730; 93005; 93306; 94640; G0378; J7070; C9113; G0480; J0610; J1644; J2060; J2405; J3360; J3411; J3475; J7030

== ENCOUNTER 2021-09-17 12:04 | Emergency (ER) | payer MEDICARE ==
[2021-09-17] MEDS ORDERED: levETIRAcetam 1000 MG/NS 0.75% 1,000 MG/100 ML BAG IV ONE (12:31)
--- NOTE | 2021-09-17 12:36 | Emergency Department Report ---
HPI - General Chief Complaint: Altered Mental Status Time Seen by Provider: 09/17/21 12:20 - HPI HPI: Room 22 The patient is a 56-year-old male presenting with chief complaint of seizure. Patient has history of seizure disorder and was reportedly dropped off at the ED. The patient came in and says he had a seizure and has evidence of urinary incontinence. The patient states he has not been taking his Keppra. Patient currently denies complaints and denies suicidal or homicidal ideation ED Past Medical Hx - Past Medical History Hx Arthritis: Yes Hx Seizures: Yes Hx Psychiatric Treatment: Yes (SCHIZOPHRENIA, anxiety) Additional medical history: Gout, Irregular heart beat, alcohol abuse, hypothyroidism - Family History Family history: no significant - Social History Smoking Status: Never Smoker Substance Use Type: Alcohol (Daily) - Medications Home Medications: Home Medications Medication Instructions Recorded Confirmed Last Taken Type Colchicine 0.6 mg PO DAILY #5 tablet 01/25/16 01/05/21 Unknown Rx Meclizine HCl [Meclizine CHEW] 25 mg PO DAILY #20 tab.chew 06/02/18 01/05/21 Unknown Rx Gabapentin 300 mg PO BID #60 tab 04/21/19 01/05/21 Unknown Rx Thiamine [Vitamin B-1] 100 mg PO QDAY #30 tablet 04/21/19 01/05/21 Unknown Rx hydrOXYzine PAMOATE [Vistaril] 50 mg PO Q6H PRN #30 capsule 04/21/19 01/05/21 Unknown Rx Aspirin [Aspirin BABY CHEW TAB] 81 mg PO QDAY 30 Days #30 tab.chew 01/07/21 Unknown Rx AtorvaSTATin [Lipitor] 40 mg PO QHS 30 Days #30 tablet 01/07/21 Unknown Rx Folic Acid [Folvite] 1 mg PO QDAY 30 Days #30 tablet 01/07/21 Unknown Rx Multivitamin Tab [Multiple Vitamin 1 each PO QDAY 30 Days #30 tablet 01/07/21 Unknown Rx TAB (Theragran)] Nitroglycerin [Nitrostat] 0.4 mg SL Q5M PRN 30 Days #30 01/07/21 Unknown Rx tablet levETIRAcetam [Keppra TAB] 500 mg PO BID #30 tablet 09/17/21 Unknown Rx ED Review of Systems ROS: Stated complaint: MH EVAL Other details as noted in HPI Constitutional: no symptoms reported Eyes: denies: eye pain ENT: denies: throat pain Respiratory: no symptoms reported Cardiovascular: denies: chest pain Endocrine: no symptoms reported Gastrointestinal: denies: abdominal pain Genitourinary: denies: dysuria Musculoskeletal: denies: back pain Neurological: denies: headache Physical Exam - Physical Exam Vital Signs: Vital Signs 09/17/21 12:10 Temperature 97 F L Pulse Rate 100 H Respiratory 18 Rate Blood Pressure 91/61 [Left] O2 Sat by Pulse 97 Oximetry Physical Exam: GENERAL: The patient is well-developed well-nourished male lying on stretcher not appearing to be in acute distress. Pants were wet from where he urinated on himself HEENT: Normocephalic. Atraumatic. Extraocular motions are intact. Patient has moist mucous membranes. NECK: Supple. Trachea midline CHEST/LUNGS: Clear to auscultation. There is no respiratory distress noted. HEART/CARDIOVASCULAR: Regular. There is no tachycardia. There is no gallop rub or murmur. ABDOMEN: Abdomen is soft, nontender. Patient has normal bowel sounds. There is no abdominal distention. SKIN: There is no rash. There is no edema. There is no diaphoresis. NEURO: The patient is awake, but still a little postictal as patient is only oriented to self. The patient is cooperative. The patient has no focal neurologic deficits. The patient has normal speech. GCS 15 MUSCULOSKELETAL: There is no evidence of acute injury. ED Course Vital Signs 09/17/21 12:10 Temperature 97 F L Pulse Rate 100 H Respiratory 18 Rate Blood Pressure 91/61 [Left] O2 Sat by Pulse 97 Oximetry ED Medical Decision Making - Lab Data Result diagrams: 09/17/21 12:30 09/17/21 12:30 Laboratory Tests 09/17/21 09/17/21 09/17/21 12:30 12:30 13:45 WBC 3.1 L RBC 3.34 L Hgb 11.8 Hct 34.4 L MCV 103 H MCH 35 H MCHC 34 RDW 14.5 Plt Count 230 Lymph % (Auto) 44.5 H [place] % (Auto) 10.0 H Eos % (Auto) 4.4 H Baso % (Auto) 2.0 H Lymph # (Auto) 1.4 [place] # (Auto) 0.3 Eos # (Auto) 0.1 Baso # (Auto) 0.1 Seg Neutrophils % 39.1 L Seg Neutrophils # 1.2 L Sodium 144 Potassium 3.6 Chloride 106.6 Carbon Dioxide 25 Anion Gap 16 BUN 4 L Creatinine 0.7 L Estimated GFR > 60 BUN/Creatinine Ratio 6 Glucose 95 Calcium 9.0 Magnesium 1.50 L Plasma/Serum Alcohol 0.40 H - Differential Diagnosis Seizure Critical care attestation.: If time is entered above; I have spent that time in minutes in the direct care of this critically ill patient, excluding procedure time. ED Disposition Clinical Impression: Seizure, Alcohol intoxication Disposition: 01 HOME / SELF CARE / HOMELESS Is pt being admited?: No Does the pt Need Aspirin: No Condition: Stable Additional Instructions: Return to the emergency department should you develop worsening symptoms, inability to tolerate food or liquids, high fever or any other concerns Prescriptions: levETIRAcetam [Keppra TAB] 500 mg PO BID #30 tablet Time of Disposition: 16:32 (D/C'd to friend/ride)
[2021-09-17 14:03] LABS: Basophils # (Auto) 0.1 K/mm3 (0.0-0.1); Eosinophils # (Auto) 0.1 K/mm3 (0.0-0.4); Eosinophils % (Auto) 4.4 % (0.0-4.3); Hematocrit 34.4 % (35.5-45.6); Hemoglobin 11.8 gm/dl (11.8-15.2); Lymphocytes # (Auto) 1.4 K/mm3 (1.2-5.4); Lymphocytes % (Auto) 44.5 % (13.4-35.0); Mean Corpuscular HGB Conc 34 % (32-34); Mean Corpuscular Volume 103 fl (84-94); Monocytes # (Auto) 0.3 K/mm3 (0.0-0.8); Platelet Count 230 K/mm3 (140-440); Red Blood Count 3.34 M/mm3 (3.65-5.03); Red Cell Distribution Width 14.5 % (13.2-15.2)
[2021-09-17 14:11] LABS: Blood Urea Nitrogen 4 mg/dL (9-20); Hemolysis Index 0
[2021-09-17 14:22] LABS: BUN/Creatinine Ratio 6
[2021-09-17] MEDS ORDERED: MAGNESIUM SULFATE 2 GM/50 ML BAG IV ONE (14:36)
[2021-09-17 16:19] VITALS: BP 97/61
== END 2021-09-17 16:56 | disposition home or self-care (01) ==
LOC: ED 12:04
DX: F10.129 Alcohol abuse with intoxication, unspecified (principal); R56.9 Unspecified convulsions; M10.9 Gout, unspecified; F20.9 Schizophrenia, unspecified; F41.9 Anxiety disorder, unspecified; E03.9 Hypothyroidism, unspecified
CPT/HCPCS: 36415; 80048; 83735; 85025; 96365; 96375; 99283; J1953; J3475; 80320; G0480

== ENCOUNTER 2021-10-04 19:48 | Emergency (ER) | payer MEDICARE ==
[2021-10-04 19:56] VITALS: BP 128/76
[2021-10-04] MEDS ORDERED: LORazepam 2 MG/ML VIAL IM PRN (20:02)
[2021-10-04] MEDS ORDERED: LORazepam 2 MG TAB PO PRN ×2 (20:02)
[2021-10-04] MEDS ORDERED: chlordiazePOXIDE 25 MG CAP PO PRN ×2 (20:02)
[2021-10-04] MEDS ORDERED: HALOPERIDOL LACTATE 5 MG/1 ML INJ IM PRN (20:02)
--- NOTE | 2021-10-04 20:04 | Event Note ---
Date: 10/04/21 Verbal report received from emergency medical service EMS documentation not available at time of chart dictation This patient is a 56-year-old gentleman with a history of alcoholism and alcohol withdrawal, as well as psychiatric disease, who presents to the ER with EMS with a complaint of painless alcohol intoxication. Patient was reportedly at [facility] earlier on today, and left. EMS reports that they found the patient standing at the [facility]. The patient reports no physical pain. He is not homicidal or suicidal. EMS reports unremarkable vital signs in the emergency room. The patient is cooperative but intoxicated. There is no evidence of trauma to the head or neck. Place patient on hold status. Obtain appropriate laboratory studies. As needed medications ordered. Detailed history and physical to be performed by oncoming provider. Vital Signs 10/04/21 19:54 Temperature 97.9 F Pulse Rate 94 H Respiratory 18 Rate Blood Pressure 128/76 [Left] O2 Sat by Pulse 98 Oximetry
[2021-10-04] MEDS ORDERED: SODIUM CHLORIDE 0.9% 1000 ML 1,000 ML IV ONE (20:11)
[2021-10-04 20:45] LABS: Basophils % (Auto) 0.7 % (0.0-1.8); Eosinophils # (Auto) 0.2 K/mm3 (0.0-0.4); Eosinophils % (Auto) 4.4 % (0.0-4.3); Hematocrit 34.2 % (35.5-45.6); Hemoglobin 11.7 gm/dl (11.8-15.2); Lymphocytes # (Auto) 1.5 K/mm3 (1.2-5.4); Lymphocytes % (Auto) 43.5 % (13.4-35.0); Mean Corpuscular HGB Conc 34 % (32-34); Mean Corpuscular Volume 102 fl (84-94); Monocytes # (Auto) 0.4 K/mm3 (0.0-0.8); Monocytes % (Auto) 12.4 % (0.0-7.3); Platelet Count 168 K/mm3 (140-440); Red Blood Count 3.34 M/mm3 (3.65-5.03); Red Cell Distribution Width 14.7 % (13.2-15.2)
[2021-10-04 21:07] LABS: Alanine Aminotransferase 64 units/L (7-56); Albumin 3.8 g/dL (3.9-5); Blood Urea Nitrogen 3 mg/dL (9-20); Calcium 9.5 mg/dL (8.4-10.2); Hemolysis Index 3
[2021-10-04 21:09] LABS: BUN/Creatinine Ratio 4
--- NOTE | 2021-10-04 21:33 | Emergency Department Report ---
ED Psych HPI - General Chief Complaint: Medical Clearance Stated Complaint: ETOH Time Seen by Provider: 10/04/21 20:07 Source: EMS Mode of arrival: Stretcher Limitations: No Limitations - History of Present Illness Initial Comments: pt is intoxicated and states he is "weak and tired" pt found with 6-7 large cans of beer. pt denies SI or HI. Complaint: other (weakness ) -: hour(s) Associated Psychiatric Symptoms: none History of same: Yes Quality: constant Worsens With: achohol Context: recent alcohol abuse Associated Symptoms: denies: denies other symptoms, confusion, headache, shortness of breath, nausea - Related Data Previous Rx's Medication Instructions Recorded Last Taken Type Colchicine 0.6 mg PO DAILY #5 tablet 01/25/16 Unknown Rx Meclizine HCl [Meclizine CHEW] 25 mg PO DAILY #20 tab.chew 06/02/18 Unknown Rx Gabapentin 300 mg PO BID #60 tab 04/21/19 Unknown Rx Thiamine [Vitamin B-1] 100 mg PO QDAY #30 tablet 04/21/19 Unknown Rx hydrOXYzine PAMOATE [Vistaril] 50 mg PO Q6H PRN #30 capsule 04/21/19 Unknown Rx Aspirin [Aspirin BABY CHEW TAB] 81 mg PO QDAY 30 Days #30 tab.chew 01/07/21 Unknown Rx AtorvaSTATin [Lipitor] 40 mg PO QHS 30 Days #30 tablet 01/07/21 Unknown Rx Folic Acid [Folvite] 1 mg PO QDAY 30 Days #30 tablet 01/07/21 Unknown Rx Multivitamin Tab [Multiple Vitamin 1 each PO QDAY 30 Days #30 tablet 01/07/21 Unknown Rx TAB (Theragran)] Nitroglycerin [Nitrostat] 0.4 mg SL Q5M PRN 30 Days #30 01/07/21 Unknown Rx tablet levETIRAcetam [Keppra TAB] 500 mg PO BID #30 tablet 09/17/21 Unknown Rx Allergies Allergy/AdvReac Type Severity Reaction Status Date / Time No Known Allergies Allergy Verified 10/04/21 19:58 ED Review of Systems ROS: Stated complaint: ETOH Other details as noted in HPI Constitutional: denies: chills, fever Eyes: denies: eye pain, eye discharge, vision change ENT: denies: ear pain, throat pain Respiratory: denies: cough, shortness of breath, wheezing Cardiovascular: denies: chest pain, palpitations Endocrine: no symptoms reported Gastrointestinal: denies: abdominal pain, nausea, diarrhea Genitourinary: denies: urgency, dysuria Musculoskeletal: denies: back pain, joint swelling, arthralgia Skin: denies: rash, lesions Neurological: denies: headache, weakness, paresthesias Psychiatric: denies: anxiety, depression Hematological/Lymphatic: denies: easy bleeding, easy bruising ED Past Medical Hx - Past Medical History Hx Arthritis: Yes Hx Seizures: Yes Hx Psychiatric Treatment: Yes (SCHIZOPHRENIA, anxiety) Additional medical history: Gout, Irregular heart beat, alcohol abuse, hypothyroidism - Social History Smoking Status: Never Smoker Substance Use Type: Alcohol (Daily) - Medications Home Medications: Home Medications Medication Instructions Recorded Confirmed Last Taken Type Colchicine 0.6 mg PO DAILY #5 tablet 01/25/16 01/05/21 Unknown Rx Meclizine HCl [Meclizine CHEW] 25 mg PO DAILY #20 tab.chew 06/02/18 01/05/21 Unknown Rx Gabapentin 300 mg PO BID #60 tab 04/21/19 01/05/21 Unknown Rx Thiamine [Vitamin B-1] 100 mg PO QDAY #30 tablet 04/21/19 01/05/21 Unknown Rx hydrOXYzine PAMOATE [Vistaril] 50 mg PO Q6H PRN #30 capsule 04/21/19 01/05/21 Unknown Rx Aspirin [Aspirin BABY CHEW TAB] 81 mg PO QDAY 30 Days #30 tab.chew 01/07/21 Unknown Rx AtorvaSTATin [Lipitor] 40 mg PO QHS 30 Days #30 tablet 01/07/21 Unknown Rx Folic Acid [Folvite] 1 mg PO QDAY 30 Days #30 tablet 01/07/21 Unknown Rx Multivitamin Tab [Multiple Vitamin 1 each PO QDAY 30 Days #30 tablet 01/07/21 Unknown Rx TAB (Theragran)] Nitroglycerin [Nitrostat] 0.4 mg SL Q5M PRN 30 Days #30 01/07/21 Unknown Rx tablet levETIRAcetam [Keppra TAB] 500 mg PO BID #30 tablet 09/17/21 Unknown Rx ED Physical Exam - General Limitations: No Limitations General appearance: alert, appears intoxicated - Head Head exam: Present: atraumatic, normocephalic - Eye Eye exam: Present: normal appearance - ENT ENT exam: Present: mucous membranes moist - Neck Neck exam: Present: normal inspection - Respiratory Respiratory exam: Present: normal lung sounds bilaterally. Absent: respiratory distress - Cardiovascular Cardiovascular Exam: Present: regular rate, normal rhythm. Absent: systolic murmur, diastolic murmur, rubs, gallop - GI/Abdominal GI/Abdominal exam: Present: soft, normal bowel sounds - Rectal Rectal exam: Present: deferred - Extremities Exam Extremities exam: Present: normal inspection - Back Exam Back exam: Present: normal inspection - Neurological Exam Neurological exam: Present: alert, oriented X3 - Psychiatric Psychiatric exam: Present: normal affect, normal mood - Skin Skin exam: Present: warm, dry, intact, normal color. Absent: rash ED Course Vital Signs 10/04/21 19:54 Temperature 97.9 F Pulse Rate 94 H Respiratory 18 Rate Blood Pressure 128/76 [Left] O2 Sat by Pulse 98 Oximetry ED Medical Decision Making - Lab Data Result diagrams: 10/04/21 20:30 10/04/21 20:30 - Medical Decision Making work up unremarkable , intoxciation noted fluids given , pt refused medical care and wanted to leave AMA , he was awake and understands risks Critical care attestation.: If time is entered above; I have spent that time in minutes in the direct care of this critically ill patient, excluding procedure time. ED Disposition Clinical Impression: Encounter for medical clearance for patient hold, Alcohol intoxication Disposition: LEFT AGAINST MEDICAL ADVICE Is pt being admited?: No Does the pt Need Aspirin: No Condition: Stable Instructions: Binge-Drinking Information, Adult Referrals: GIGI BASURTO MD [Primary Care Provider] - 3-5 Days
== END 2021-10-04 22:04 | disposition left against medical advice (07) ==
LOC: ED 19:48
DX: F10.129 Alcohol abuse with intoxication, unspecified (principal); Z02.79 Encounter for issue of other medical certificate
CPT/HCPCS: 36415; 80053; 82010; 82550; 83735; 85025; 99283; J7030; 80320; G0480

== ENCOUNTER 2021-10-22 02:47 | Emergency (ER) | payer MEDICARE ==
[2021-10-22] MEDS ORDERED: SODIUM CHLORIDE 0.9% 1000 ML 1,000 ML IV ONE (04:18)
--- NOTE | 2021-10-22 04:18 | Emergency Department Report ---
ED Alcohol HPI - General Stated Complaint: WEAKNESS ETOH Time Seen by Provider: 10/22/21 04:12 - History of Present Illness Initial Comments: 56 yo Alcoholic M who called the ED and got EMS on the phone for someone to pick him up from the bus stop. When the EMS got there patient was busy drinking different kinds of alcoholic beverages. Pt reports some muscle aches. No other modifying or associated factors reported. - Related Data Previous Rx's Medication Instructions Recorded Last Taken Type Colchicine 0.6 mg PO DAILY #5 tablet 01/25/16 Unknown Rx Meclizine HCl [Meclizine CHEW] 25 mg PO DAILY #20 tab.chew 06/02/18 Unknown Rx Gabapentin 300 mg PO BID #60 tab 04/21/19 Unknown Rx Thiamine [Vitamin B-1] 100 mg PO QDAY #30 tablet 04/21/19 Unknown Rx hydrOXYzine PAMOATE [Vistaril] 50 mg PO Q6H PRN #30 capsule 04/21/19 Unknown Rx Aspirin [Aspirin BABY CHEW TAB] 81 mg PO QDAY 30 Days #30 tab.chew 01/07/21 Unknown Rx AtorvaSTATin [Lipitor] 40 mg PO QHS 30 Days #30 tablet 01/07/21 Unknown Rx Folic Acid [Folvite] 1 mg PO QDAY 30 Days #30 tablet 01/07/21 Unknown Rx Multivitamin Tab [Multiple Vitamin 1 each PO QDAY 30 Days #30 tablet 01/07/21 Unknown Rx TAB (Theragran)] Nitroglycerin [Nitrostat] 0.4 mg SL Q5M PRN 30 Days #30 01/07/21 Unknown Rx tablet levETIRAcetam [Keppra TAB] 500 mg PO BID #30 tablet 09/17/21 Unknown Rx Allergies Allergy/AdvReac Type Severity Reaction Status Date / Time No Known Allergies Allergy Verified 10/04/21 19:58 ED Review of Systems ROS: Stated complaint: WEAKNESS ETOH Other details as noted in HPI Comment: All other systems reviewed and negative Musculoskeletal: myalgia Neurological: other (alcoholic ) ED Past Medical Hx - Past Medical History Hx Arthritis: Yes Hx Seizures: Yes Hx Psychiatric Treatment: Yes (SCHIZOPHRENIA, anxiety) Additional medical history: Gout, Irregular heart beat, alcohol abuse, hypothyroidism - Social History Smoking Status: Never Smoker Substance Use Type: Alcohol (Daily) - Medications Home Medications: Home Medications Medication Instructions Recorded Confirmed Last Taken Type Colchicine 0.6 mg PO DAILY #5 tablet 01/25/16 01/05/21 Unknown Rx Meclizine HCl [Meclizine CHEW] 25 mg PO DAILY #20 tab.chew 06/02/18 01/05/21 Unknown Rx Gabapentin 300 mg PO BID #60 tab 04/21/19 01/05/21 Unknown Rx Thiamine [Vitamin B-1] 100 mg PO QDAY #30 tablet 04/21/19 01/05/21 Unknown Rx hydrOXYzine PAMOATE [Vistaril] 50 mg PO Q6H PRN #30 capsule 04/21/19 01/05/21 Unknown Rx Aspirin [Aspirin BABY CHEW TAB] 81 mg PO QDAY 30 Days #30 tab.chew 01/07/21 Unknown Rx AtorvaSTATin [Lipitor] 40 mg PO QHS 30 Days #30 tablet 01/07/21 Unknown Rx Folic Acid [Folvite] 1 mg PO QDAY 30 Days #30 tablet 01/07/21 Unknown Rx Multivitamin Tab [Multiple Vitamin 1 each PO QDAY 30 Days #30 tablet 01/07/21 Unknown Rx TAB (Theragran)] Nitroglycerin [Nitrostat] 0.4 mg SL Q5M PRN 30 Days #30 01/07/21 Unknown Rx tablet levETIRAcetam [Keppra TAB] 500 mg PO BID #30 tablet 09/17/21 Unknown Rx ED Physical Exam - General Limitations: No Limitations General appearance: alert, in no apparent distress, other (alcohol intoxication ) - Head Head exam: Present: atraumatic, normal inspection - Eye Eye exam: Present: normal appearance Pupils: Present: normal accommodation - ENT ENT exam: Present: normal exam, normal orophraynx - Neck Neck exam: Present: normal inspection. Absent: tenderness - Respiratory Respiratory exam: Present: normal lung sounds bilaterally. Absent: respiratory distress, accessory muscle use - Cardiovascular Cardiovascular Exam: Present: regular rate, normal rhythm, normal heart sounds - GI/Abdominal GI/Abdominal exam: Present: soft, normal bowel sounds. Absent: distended, tenderness - Extremities Exam Extremities exam: Absent: tenderness - Back Exam Back exam: Absent: tenderness - Neurological Exam Neurological exam: Present: alert, other (alcohol intoxication ) - Psychiatric Psychiatric exam: Present: normal affect - Skin Skin exam: Present: warm ED Course Vital Signs 10/22/21 10/22/21 06:42 12:03 Temperature 98 F 97.8 F Pulse Rate 84 65 Respiratory 16 20 Rate Blood Pressure 110/77 118/68 [Right] O2 Sat by Pulse 96 95 Oximetry - Reevaluation(s) Reevaluation #1: 10/22/21 06:[address] benavides ED Medical Decision Making - Lab Data Result diagrams: 10/22/21 04:31 10/22/21 04:31 - Medical Decision Making alcohol intoxication -- will go ahead and hydration and order routine labs including CBC, CMP and alcohol blood level-- Critical care attestation.: If time is entered above; I have spent that time in minutes in the direct care of this critically ill patient, excluding procedure time. ED Disposition Clinical Impression: Alcohol abuse Disposition: 01 HOME / SELF CARE / HOMELESS Is pt being admited?: No Does the pt Need Aspirin: No Condition: Stable Instructions: Alcohol Use Disorder Referrals: PRIMARY CARE, [Primary Care Provider] - 3-5 Days Time of Disposition: 06:08
[2021-10-22] MEDS ORDERED: THIAMINE 100 MG, FOLIC ACID 1 MG, MULTIPLE VITAMIN INJ, ADULT 10 ML in SODIUM CHLORIDE ... IV ONE (04:48)
[2021-10-22 05:20] LABS: Basophils % (Auto) 0.4 % (0.0-1.8); Eosinophils # (Auto) 0.3 K/mm3 (0.0-0.4); Eosinophils % (Auto) 6.8 % (0.0-4.3); Hematocrit 33.4 % (35.5-45.6); Hemoglobin 11.4 gm/dl (11.8-15.2); Lymphocytes # (Auto) 1.5 K/mm3 (1.2-5.4); Lymphocytes % (Auto) 30.2 % (13.4-35.0); Mean Corpuscular HGB Conc 34 % (32-34); Mean Corpuscular Volume 101 fl (84-94); Monocytes # (Auto) 0.4 K/mm3 (0.0-0.8); Monocytes % (Auto) 8.5 % (0.0-7.3); Platelet Count 206 K/mm3 (140-440); Red Blood Count 3.29 M/mm3 (3.65-5.03); Red Cell Distribution Width 14.2 % (13.2-15.2)
[2021-10-22 05:42] LABS: Alanine Aminotransferase 19 units/L (7-56); Albumin 3.8 g/dL (3.9-5); Blood Urea Nitrogen 6 mg/dL (9-20); Calcium 8.4 mg/dL (8.4-10.2); Hemolysis Index 55
--- NOTE | 2021-10-22 05:49 | Cat Scan Report ---
CT ABDOMEN AND PELVIS WITHOUT CONTRAST INDICATION / CLINICAL INFORMATION: abdominal pain. TECHNIQUE: Axial CT images were obtained through the abdomen and pelvis without IV contrast. All CT scans at this location are performed using CT dose reduction for ALARA by means of automated exposure control. COMPARISON: None available. FINDINGS: LOWER CHEST: No significant abnormality of the imaged chest. LIVER: No focal lesion. No acute findings. GALLBLADDER / BILE DUCTS: Gallstones Biliary ducts grossly unremarkable. SPLEEN: No significant abnormality. PANCREAS: No significant abnormality. ADRENALS: No significant abnormality. KIDNEYS/URETERS: Moderate severe bilateral perinephric fat stranding without evidence of nephrolithia sis or hydronephrosis. STOMACH / DUODENUM / SMALL BOWEL: The stomach, duodenum, and small bowel demonstrate no significant a bnormality. No specific abnormality of the mesentery demonstrated. COLON: Diverticulosis without acute inflammation. APPENDIX: No significant abnormality. PERITONEUM: No free air or free fluid are present within the abdomen or pelvis. LYMPH NODES: No significant adenopathy. AORTA / ARTERIES: No significant abnormality. IVC / VEINS: No significant abnormality. URINARY BLADDER: No significant abnormality. REPRODUCTIVE ORGANS: Prostate upper limits of normal in size to minimally enlarged. SKELETAL SYSTEM: Moderately advanced bilateral femoral acetabular joint degenerative change as well a s low-grade osteonecrosis of the femoral heads. ADDITIONAL ABDOMINAL/PELVIC FINDINGS: None. IMPRESSION: 1. Moderate bilateral perinephric fat stranding. Nonspecific finding could reflect evidence of infect ion or inflammatory process. 2. Cholelithiasis without cholecystitis. Signer Name: Vaughn Rodríguez II, MD Signed: 10/22/2021 5:45 AM Workstation Name: [id number]
[2021-10-22 05:50] LABS: Free T4 (Free Thyroxine) 1.24 ng/dL (0.76-1.46)
[2021-10-22 06:00] LABS: BUN/Creatinine Ratio 10
[2021-10-22 12:04] VITALS: BP 118/68
== END 2021-10-22 12:30 | disposition home or self-care (01) ==
LOC: ED 02:47
DX: F10.10 Alcohol abuse, uncomplicated (principal); M19.90 Unspecified osteoarthritis, unspecified site; R10.9 Unspecified abdominal pain; R56.9 Unspecified convulsions; F20.9 Schizophrenia, unspecified; F41.9 Anxiety disorder, unspecified; M10.9 Gout, unspecified; I49.9 Cardiac arrhythmia, unspecified; E03.9 Hypothyroidism, unspecified
CPT/HCPCS: 36415; 74176; 80053; 84439; 84443; 85025; 96365; 96366; 99284; J3411; J3490; J7030; 80320; G0480

== ENCOUNTER 2021-10-27 23:41 | Emergency (ER) | payer MEDICARE ==
--- NOTE | 2021-10-28 | Emergency Department Report ---
HPI - HPI HPI: Room 17 The patient is a 56-year-old male present with chief complaint of alcohol intoxication. EMS was called after the patient was found intoxicated at a bus stop. In the ED the patient states he wishes to go to [place] because he wants to stop drinking. Patient states he does not drink every day because he does not have a car but when he does drink he consumes a pint of liquor and a sixpack of beer. Patient consumed alcohol today <KANDY LORENZ - Last Filed: 10/27/21 23:56> <CHATA BRADSHAW - Last Filed: 10/28/21 12:43> - General Chief Complaint: Alcohol Time Seen by Provider: 10/27/21 23:45 ED Past Medical Hx - Past Medical History Hx Arthritis: Yes Hx Seizures: Yes Hx Psychiatric Treatment: Yes (SCHIZOPHRENIA, anxiety) Additional medical history: Gout, Irregular heart beat, alcohol abuse, hypothyroidism - Surgical History Past Surgical History?: No - Family History Family history: no significant - Social History Smoking Status: Never Smoker Substance Use Type: Alcohol (Daily) <KANDY LORENZ - Last Filed: 10/27/21 23:56> <CHATA BRADSHAW - Last Filed: 10/28/21 12:43> - Medications Home Medications: Home Medications Medication Instructions Recorded Confirmed Last Taken Type Colchicine 0.6 mg PO DAILY #5 tablet 01/25/16 01/05/21 Unknown Rx Meclizine HCl [Meclizine CHEW] 25 mg PO DAILY #20 tab.chew 06/02/18 01/05/21 Unknown Rx Gabapentin 300 mg PO BID #60 tab 04/21/19 01/05/21 Unknown Rx Thiamine [Vitamin B-1] 100 mg PO QDAY #30 tablet 04/21/19 01/05/21 Unknown Rx hydrOXYzine PAMOATE [Vistaril] 50 mg PO Q6H PRN #30 capsule 04/21/19 01/05/21 Unknown Rx Aspirin [Aspirin BABY CHEW TAB] 81 mg PO QDAY 30 Days #30 tab.chew 01/07/21 Unknown Rx AtorvaSTATin [Lipitor] 40 mg PO QHS 30 Days #30 tablet 01/07/21 Unknown Rx Folic Acid [Folvite] 1 mg PO QDAY 30 Days #30 tablet 01/07/21 Unknown Rx Multivitamin Tab [Multiple Vitamin 1 each PO QDAY 30 Days #30 tablet 01/07/21 Unknown Rx TAB (Theragran)] Nitroglycerin [Nitrostat] 0.4 mg SL Q5M PRN 30 Days #30 01/07/21 Unknown Rx tablet levETIRAcetam [Keppra TAB] 500 mg PO BID #30 tablet 09/17/21 Unknown Rx Multivitamin with Folic Acid [[facility] 400 mcg PO QDAY #30 tablet 10/28/21 Unknown Rx One Daily Essential Tablet] chlordiazePOXIDE [Librium] 25 mg PO Q6H PRN #25 capsule 10/28/21 Unknown Rx ED Review of Systems ROS: Stated complaint: BILATER FOOT PAIN, ETOH Other details as noted in HPI Constitutional: no symptoms reported Eyes: denies: eye pain ENT: denies: throat pain Respiratory: no symptoms reported Cardiovascular: denies: chest pain Endocrine: no symptoms reported Gastrointestinal: denies: abdominal pain Genitourinary: denies: dysuria Musculoskeletal: denies: back pain Neurological: denies: headache <KANDY LORENZ - Last Filed: 10/27/21 23:56> ROS: Stated complaint: BILATER FOOT PAIN, ETOH Other details as noted in HPI <CHATA BRADSHAW - Last Filed: 10/28/21 12:43> Physical Exam - Physical Exam Vital Signs: Vital Signs 10/27/21 23:47 Temperature 97.8 F Pulse Rate 100 H Respiratory 18 Rate Blood Pressure 139/74 [Right] O2 Sat by Pulse 100 Oximetry Physical Exam: GENERAL: The patient is well-developed well-nourished male lying on stretcher appearing intoxicated but in no acute distress. [] HEENT: Normocephalic. Atraumatic. Extraocular motions are intact. Patient has moist mucous membranes. NECK: Supple. Trachea midline CHEST/LUNGS: Clear to auscultation. There is no respiratory distress noted. HEART/CARDIOVASCULAR: Regular. There is no tachycardia. There is no gallop rub or murmur. ABDOMEN: Abdomen is soft, nontender. Patient has normal bowel sounds. There is no abdominal distention. SKIN: There is no rash. There is no edema. There is no diaphoresis. NEURO: The patient is awake and oriented but. The patient is cooperative. The patient has no focal neurologic deficits. The patient has normal speech MUSCULOSKELETAL: There is no evidence of acute injury. <KANDY LORENZ Last Filed: 10/27/21 23:56> - Physical Exam Vital Signs: Vital Signs 10/27/21 10/27/21 10/28/21 23:47 23:57 03:27 Temperature 97.8 F 97.5 F L Pulse Rate 100 H 94 H 88 Respiratory 18 16 15 Rate Blood Pressure 139/74 155/75 133/72 [Right] O2 Sat by Pulse 100 99 98 Oximetry 10/28/21 10/28/21 10/28/21 04:39 06:07 10:51 Temperature Pulse Rate 90 88 80 Respiratory 15 15 14 Rate Blood Pressure 151/85 120/79 109/72 [Right] O2 Sat by Pulse 95 98 97 Oximetry <CHATA BRADSHAW Last Filed: 10/28/21 12:43> ED Course Vital Signs 10/27/21 23:47 Temperature 97.8 F Pulse Rate 100 H Respiratory 18 Rate Blood Pressure 139/74 [Right] O2 Sat by Pulse 100 Oximetry <KANDY LORENZ Last Filed: 10/27/21 23:56> Vital Signs 10/27/21 10/27/21 10/28/21 23:47 23:57 03:27 Temperature 97.8 F 97.5 F L Pulse Rate 100 H 94 H 88 Respiratory 18 16 15 Rate Blood Pressure 139/74 155/75 133/72 [Right] O2 Sat by Pulse 100 99 98 Oximetry 10/28/21 10/28/21 10/28/21 04:39 06:07 10:51 Temperature Pulse Rate 90 88 80 Respiratory 15 15 14 Rate Blood Pressure 151/85 120/79 109/72 [Right] O2 Sat by Pulse 95 98 97 Oximetry - Reevaluation(s) Reevaluation #1: 10/28/21 12:42 Patient in no acute distress. Psychiatric recommendations appreciated. Clinically sober at this time. May discharge with outpatient follow-up <CHATA BRADSHAW - Last Filed: 10/28/21 12:43> ED Medical Decision Making - Differential Diagnosis Alcohol intoxication, homelessness <KANDY LORENZ Last Filed: 10/27/21 23:56> - Lab Data Result diagrams: 10/28/21 01:29 10/28/21 01:29 <CHATA BRADSHAW Last Filed: 10/28/21 12:43> Critical care attestation.: If time is entered above; I have spent that time in minutes in the direct care of this critically ill patient, excluding procedure time. <LORETTA LORENZKE Ariana - Last Filed: 10/27/21 23:56> Critical care attestation.: If time is entered above; I have spent that time in minutes in the direct care of this critically ill patient, excluding procedure time. <CHATA BRADSHAW - Last Filed: 10/28/21 12:43> ED Disposition <GERDAKANDY Ariana - Last Filed: 10/27/21 23:56> Is pt being admited?: No Does the pt Need Aspirin: No <CHATA BRADSHAW - Last Filed: 10/28/21 12:43> Clinical Impression: Alcohol dependence, ETOH abuse, Dehydration, Hypokalemia Disposition: 01 HOME / SELF CARE / HOMELESS Condition: Good Additional Instructions: Please follow-up with an outpatient mental health specialist within the next week. Avoid consumption of alcohol, tobacco, smoke products and recreational drugs. Consume foods that are high in potassium, such as magnesium, avocado, potato Please return to the emergency room right away with new pain, worsened pain, migration of pain, projectile vomiting, change in mental status, confusion, inability tolerate liquid feeds, new, worsened or different symptoms not present on the initial emergency room evaluation professional and Agency Contacts To help [facility] Cr[facility] (19/10) [place] Crisis Line: Suicide Prevention Line: Crisis Text Line: Text ``START to 721911 Emergency: 911 Outpatient COMMUNITY Behavioral Health Resources: SHALINI: [facility] [address] [place], [place] [address] [facility] [address] [place] [address] Wednesday thru Wednesday - 8am - 5pm Call to schedule an assessment for mental health and substance abuse programs [facility] Address: [address] [place] [id number] Wednesday thru Wednesday- 7am-2pm [facility] Address: [address] [place] [address] Wednesday thrwednesday: 8:30AM-5PM Professional and Agency Contacts To help [facility] Cr[facility](19/10) [place] Crisis Line: Suicide Prevention Line: Crisis Text Line: Text START to 095144 Emergency: 911 Outpatient COMMUNITY Behavioral Health Resources: SHALINI: [facility] [address] [place], [place] [address] [place]: [facility] [address] [place] [address] [place]: [facility] - [address] [place] [address] Wednesday thru Wednesday - 8am - 5pm [place]: [facility] Address: [address] [place] [address] [place]: [facility] Address: [address] [place], [place] [address]Wednesday thru Wednesday- 7am-2pm [facility] Address: [address] [place], [place] Wednesday thrwednesday: 8:30AM-5PM In case of an emergency, please contact the following numbers: [place] Crisis and Access Line: Number: Crisis Text Line: (Text START) Number: 010330 Suicide Prevention Line: Number: Emergency Number: 911 SUBSTANCE ABUSE PROGRAMS: [facility]: Location: [place], [place] [facility] Address: [address] [place] [address] [facility]: Address: [address] [facility] [place] [address] [facility]: Address: [address] [place] [address] [facility]: Address: [address] [place] [address] [facility] Address: [address] [place] [address]. Please contact above numbers to attempt placement into free based program. Medicaid Programs: [facility]: Address: [address] [place] [address] [facility]: Address: [address] [place] [address] Referrals: [facility] [Outside] - 3-5 Days [facility] [Outside] - 3-5 Days
[2021-10-28 01:33] LABS: Amphetamine Screen,Urine PRESUMPTIVE NEGATIVE; Benzodiazepines Screen,Urine PRESUMPTIVE POSITIVE; Cannabinoid Screen,Urine PRESUMPTIVE NEGATIVE; Cocaine Screen,Urine PRESUMPTIVE NEGATIVE; Methadone Screen,Urine PRESUMPTIVE NEGATIVE; Opiate Screen,Urine PRESUMPTIVE NEGATIVE
[2021-10-28 02:18] LABS: Bacteria,Urine 1+ /HPF (Negative)
[2021-10-28 02:25] LABS: Basophils % (Auto) 0.2 % (0.0-1.8); Eosinophils # (Auto) 0.2 K/mm3 (0.0-0.4); Eosinophils % (Auto) 3.2 % (0.0-4.3); Hematocrit 32.8 % (35.5-45.6); Hemoglobin 11.3 gm/dl (11.8-15.2); Lymphocytes # (Auto) 1.4 K/mm3 (1.2-5.4); Mean Corpuscular HGB Conc 34 % (32-34); Mean Corpuscular Volume 102 fl (84-94); Monocytes # (Auto) 0.7 K/mm3 (0.0-0.8); Monocytes % (Auto) 12.4 % (0.0-7.3); Platelet Count 187 K/mm3 (140-440); Red Blood Count 3.22 M/mm3 (3.65-5.03)
[2021-10-28 02:27] LABS: Bilirubin,Urine Negative (Negative); Blood,Urine Negative (Negative); Color,Urine Yellow (Yellow); Protein,Urine <15 mg/dL mg/dL (Negative); Urobilinogen,Urine < 2.0 mg/dL (<2.0)
[2021-10-28 02:32] LABS: Alanine Aminotransferase 9 units/L (7-56); Albumin 3.5 g/dL (3.9-5); BUN/Creatinine Ratio 9; Blood Urea Nitrogen 7 mg/dL (9-20); Calcium 8.6 mg/dL (8.4-10.2); Hemolysis Index 60
[2021-10-28] MEDS ORDERED: MAGNESIUM SULFATE 2 GM/50 ML BAG IV ONE (03:43)
[2021-10-28] MEDS ORDERED: THIAMINE 100 MG, FOLIC ACID 1 MG, MULTIPLE VITAMIN INJ, ADULT 10 ML in SODIUM CHLORIDE ... IV ONE (03:43)
[2021-10-28] MEDS ORDERED: SODIUM CHLORIDE 0.9% 1000 ML 1,000 ML IV ONE (03:43)
[2021-10-28] MEDS ORDERED: LORazepam 2 MG/ML VIAL IV PRN ×4 (04:42→05:41)
[2021-10-28] MEDS ORDERED: THIAMINE 100 MG TAB PO ONE (05:27)
[2021-10-28] MEDS ORDERED: MULTIVITAMINS ,THERAPEUTIC TAB PO ONE (05:27)
[2021-10-28] MEDS ORDERED: LORazepam 2 MG TAB PO PRN ×2 (05:41)
[2021-10-28] MEDS ORDERED: POTASSIUM CHLORIDE ER 20 MEQ TAB PO ONE (06:14)
[2021-10-28] MEDS: POTASSIUM CHLORIDE 10 MEQ 10 MEQ/100 ML BAG IV SCH ×2 (09:49→09:53)
[2021-10-28] MEDS ORDERED: FOLIC ACID 1 MG TAB PO SCH (10:00)
[2021-10-28 10:52] VITALS: BP 109/72
--- NOTE | 2021-10-28 11:49 | Consultation ---
History of Present Illness - Reason for Consult Consult date: 10/28/21 Reason for consult: alcohol dependence - History of Present Psychiatric Illness The patient was seen today. He is here for alcohol detox. He is lying down with his head covered with linen. The patient is resting but easily arouses. He is cooperative, but initially asks if I can come back later. He says he came to the hospital because he wasn't taking his meds and drinking. The patient denies that he drinks a lot. He says "I drink when I go out but I don't go out that much." He says he's been off his meds for schizophrenia for about 2 months for schizophrenia. He could not recall what they were. The patient says "I don't have transportation and no way to get them." He denies any other illicit drug use. He denies SI/HI or hallucinations of any kind. PAST PSYCHIATRIC HISTORY: Diagnoses: schizophrenia Suicide attempts or Self-harm behavior: Denies Prior psychiatric hospitalizations: Yes Substance Abuse history: Alcohol Previous psychiatric medications tried: could not recall Outpatient treatment: not at present PAST MEDICAL HISTORY: None reported Family Psychiatric History: None reported or documented SOCIAL HISTORY Marital Status: Single Living Arrangements: With mother Employment Status: Unemployed Access to guns/weapons: Denies Education: History of Abuse: Denies Legal History: Denies REVIEW OF SYSTEMS Constitutional: Negative for weight loss ENT: Negative for stridor Respiratory: Negative for cough or hemoptysis All other systems reviewed and are negative Diagnoses: Alcohol Dependence Treatment Plan No scripts given at this time [facility]: Per primary Disposition: Do not recommend acute psychiatric inpatient treatment 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 Thanks Case staffed with Dr. Lee Medications and Allergies Allergies Allergy/AdvReac Type Severity Reaction Status Date / Time No Known Allergies Allergy Verified 10/04/21 19:58 Home Medications Medication Instructions Recorded Confirmed Last Taken Type Colchicine 0.6 mg PO DAILY #5 tablet 01/25/16 01/05/21 Unknown Rx Meclizine HCl [Meclizine CHEW] 25 mg PO DAILY #20 tab.chew 06/02/18 01/05/21 Unknown Rx Gabapentin 300 mg PO BID #60 tab 04/21/19 01/05/21 Unknown Rx Thiamine [Vitamin B-1] 100 mg PO QDAY #30 tablet 04/21/19 01/05/21 Unknown Rx hydrOXYzine PAMOATE [Vistaril] 50 mg PO Q6H PRN #30 capsule 04/21/19 01/05/21 Unknown Rx Aspirin [Aspirin BABY CHEW TAB] 81 mg PO QDAY 30 Days #30 tab.chew 01/07/21 Unknown Rx AtorvaSTATin [Lipitor] 40 mg PO QHS 30 Days #30 tablet 01/07/21 Unknown Rx Folic Acid [Folvite] 1 mg PO QDAY 30 Days #30 tablet 01/07/21 Unknown Rx Multivitamin Tab [Multiple Vitamin 1 each PO QDAY 30 Days #30 tablet 01/07/21 Unknown Rx TAB (Theragran)] Nitroglycerin [Nitrostat] 0.4 mg SL Q5M PRN 30 Days #30 01/07/21 Unknown Rx tablet levETIRAcetam [Keppra TAB] 500 mg PO BID #30 tablet 09/17/21 Unknown Rx Active Meds: Active Medications Folic Acid (Folic Acid 1 Mg Tab) 1 mg PO QDAY AMBERLY Last Admin: 10/28/21 09:54 Dose: 1 mg Lorazepam (Lorazepam 2 Mg Tab) 2 mg PO Q1HR PRN PRN Reason: CIWA-Ar 8-15 Lorazepam (Lorazepam 2 Mg Tab) 4 mg PO Q1HR PRN PRN Reason: CIWA-Ar 16-25 Lorazepam (Lorazepam 2 Mg/Ml Vial) 4 mg IV Q15MIN PRN PRN Reason: CIWA-Ar >25 Mental Status Exam - Vital signs Last Vital Signs Temp 97.5 F L 10/27/21 23:57 Pulse 80 10/28/21 10:51 Resp 14 10/28/21 10:51 BP 109/72 10/28/21 10:51 Pulse Ox 97 10/28/21 10:51 Results Result Diagrams: 10/28/21 01:29 10/28/21 01:29 Abnormal lab results 10/28/21 10/28/21 10/28/21 Range/Units 01:29 01:29 01:29 RBC 3.22 L (3.65-5.03) M/mm3 Hgb 11.3 L (11.8-15.2) gm/dl Hct 32.8 L (35.5-45.6) % MCV 102 H (84-94) fl MCH 35 H (28-32) pg [place] % (Auto) 12.4 H (0.0-7.3) % Sodium 136 L (137-145) mmol/L Potassium 3.4 L (3.6-5.0) mmol/L Chloride 96.9 L (98-107) mmol/L Carbon Dioxide 21 L (22-30) mmol/L BUN 7 L (9-20) mg/dL Glucose 107 H (75-100) mg/dL Albumin 3.5 L (3.9-5) g/dL Salicylates < 0.3 L (2.8-20.0) mg/dL Acetaminophen (10.0-30.0) ug/mL Plasma/Serum Alcohol (0-0.07) % 10/28/21 10/28/21 Range/Units 01:29 01:29 RBC (3.65-5.03) M/mm3 Hgb (11.8-15.2) gm/dl Hct (35.5-45.6) % MCV (84-94) fl MCH (28-32) pg [place] % (Auto) (0.0-7.3) % Sodium (137-145) mmol/L Potassium (3.6-5.0) mmol/L Chloride (98-107) mmol/L Carbon Dioxide (22-30) mmol/L BUN (9-20) mg/dL Glucose (75-100) mg/dL Albumin (3.9-5) g/dL Salicylates (2.8-20.0) mg/dL Acetaminophen 5.0 L (10.0-30.0) ug/mL Plasma/Serum Alcohol 0.26 H (0-0.07) % All other labs normal.
== END 2021-10-28 14:19 | disposition home or self-care (01) ==
LOC: ED 23:41
DX: F10.129 Alcohol abuse with intoxication, unspecified (principal); E86.0 Dehydration; E87.6 Hypokalemia; M19.90 Unspecified osteoarthritis, unspecified site; F20.9 Schizophrenia, unspecified; F41.9 Anxiety disorder, unspecified; E03.9 Hypothyroidism, unspecified; Z59.00 Homelessness unspecified; Z79.899 Other long term (current) drug therapy; Y90.9 Presence of alcohol in blood, level not specified
CPT/HCPCS: 36415; 80053; 80307; 81001; 85025; 96365; 96366; 99284; J3411; J3480; J3490; J7030; 80320; 96375; G0480

== ENCOUNTER 2021-10-30 17:41 | Emergency (ER) | payer MEDICARE ==
[2021-10-30 17:48] VITALS: BP 134/92
== END 2021-10-31 00:58 | disposition left against medical advice (07) ==
LOC: ED 17:41
DX: M79.18 Myalgia, other site (principal); Z53.21 Procedure and treatment not carried out due to patient leaving prior to being seen by health care provider

== ENCOUNTER 2021-11-03 19:03 | Emergency (ER) | payer MEDICARE ==
[2021-11-03 19:11] VITALS: BP 97/67
== END 2021-11-04 11:28 | disposition left against medical advice (07) ==
LOC: ED 19:03
DX: Z91.81 History of falling (principal); Z53.21 Procedure and treatment not carried out due to patient leaving prior to being seen by health care provider

== ENCOUNTER 2021-11-05 03:52 | Emergency (ER) | payer MEDICARE ==
[2021-11-05] MEDS ORDERED: SODIUM CHLORIDE 0.9% 1000 ML 1,000 ML IV ONE (04:50)
[2021-11-05 05:47] LABS: Eosinophils # (Auto) 0.3 K/mm3 (0.0-0.4); Eosinophils % (Auto) 6.5 % (0.0-4.3); Hematocrit 32.9 % (35.5-45.6); Hemoglobin 11.3 gm/dl (11.8-15.2); Lymphocytes # (Auto) 1.3 K/mm3 (1.2-5.4); Lymphocytes % (Auto) 32.8 % (13.4-35.0); Mean Corpuscular HGB Conc 34 % (32-34); Mean Corpuscular Volume 101 fl (84-94); Monocytes # (Auto) 0.4 K/mm3 (0.0-0.8); Monocytes % (Auto) 10.1 % (0.0-7.3); Platelet Count 269 K/mm3 (140-440); Red Blood Count 3.25 M/mm3 (3.65-5.03); Red Cell Distribution Width 13.9 % (13.2-15.2)
[2021-11-05 06:05] LABS: Blood Urea Nitrogen 4 mg/dL (9-20); Calcium 8.1 mg/dL (8.4-10.2); Hemolysis Index 3
[2021-11-05 06:16] LABS: BUN/Creatinine Ratio 8
--- NOTE | 2021-11-05 07:36 | Emergency Department Report ---
ED Alcohol HPI - General Chief Complaint: Alcohol Stated Complaint: ETOH Time Seen by Provider: 11/05/21 06:11 Source: EMS Mode of arrival: Stretcher Limitations: Altered Mental Status - History of Present Illness Initial Comments: 56-year-old male with a past medical history of schizophrenia, anxiety, seizures, and alcohol abuse presents to the hospital with acute alcohol intoxication. Patient is homeless and was transported to the department due to public drunkenness. Patient denies any complaints. He is resting but arousable. He recently decrease his alcohol intake from 1 pint of liquor daily to half a pint of liquor a day. - Related Data Previous Rx's Medication Instructions Recorded Last Taken Type Colchicine 0.6 mg PO DAILY #5 tablet 01/25/16 Unknown Rx Meclizine HCl [Meclizine CHEW] 25 mg PO DAILY #20 tab.chew 06/02/18 Unknown Rx Gabapentin 300 mg PO BID #60 tab 04/21/19 Unknown Rx Thiamine [Vitamin B-1] 100 mg PO QDAY #30 tablet 04/21/19 Unknown Rx hydrOXYzine PAMOATE [Vistaril] 50 mg PO Q6H PRN #30 capsule 04/21/19 Unknown Rx Aspirin [Aspirin BABY CHEW TAB] 81 mg PO QDAY 30 Days #30 tab.chew 01/07/21 Unknown Rx AtorvaSTATin [Lipitor] 40 mg PO QHS 30 Days #30 tablet 01/07/21 Unknown Rx Folic Acid [Folvite] 1 mg PO QDAY 30 Days #30 tablet 01/07/21 Unknown Rx Multivitamin Tab [Multiple Vitamin 1 each PO QDAY 30 Days #30 tablet 01/07/21 Unknown Rx TAB (Theragran)] Nitroglycerin [Nitrostat] 0.4 mg SL Q5M PRN 30 Days #30 01/07/21 Unknown Rx tablet levETIRAcetam [Keppra TAB] 500 mg PO BID #30 tablet 09/17/21 Unknown Rx Multivitamin with Folic Acid [Cvs 400 mcg PO QDAY #30 tablet 10/28/21 Unknown Rx One Daily Essential Tablet] chlordiazePOXIDE [Librium] 25 mg PO Q6H PRN #25 capsule 10/28/21 Unknown Rx Allergies Allergy/AdvReac Type Severity Reaction Status Date / Time No Known Allergies Allergy Verified 10/30/21 17:48 ED Review of Systems ROS: Stated complaint: ETOH Other details as noted in HPI Comment: All other systems reviewed and negative ED Past Medical Hx - Past Medical History Previous Medical History?: Yes Hx Arthritis: Yes Hx Seizures: Yes Hx Psychiatric Treatment: Yes (SCHIZOPHRENIA, anxiety) Additional medical history: Gout, Irregular heart beat, alcohol abuse, hypothyroidism - Surgical History Past Surgical History?: No - Social History Smoking Status: Current Every Day Smoker - Medications Home Medications: Home Medications Medication Instructions Recorded Confirmed Last Taken Type Colchicine 0.6 mg PO DAILY #5 tablet 01/25/16 11/05/21 Unknown Rx Meclizine HCl [Meclizine CHEW] 25 mg PO DAILY #20 tab.chew 06/02/18 11/05/21 Unknown Rx Gabapentin 300 mg PO BID #60 tab 04/21/19 11/05/21 Unknown Rx Thiamine [Vitamin B-1] 100 mg PO QDAY #30 tablet 04/21/19 11/05/21 Unknown Rx hydrOXYzine PAMOATE [Vistaril] 50 mg PO Q6H PRN #30 capsule 04/21/19 11/05/21 Unknown Rx Aspirin [Aspirin BABY CHEW TAB] 81 mg PO QDAY 30 Days #30 tab.chew 01/07/21 11/05/21 Unknown Rx AtorvaSTATin [Lipitor] 40 mg PO QHS 30 Days #30 tablet 01/07/21 11/05/21 Unknown Rx Folic Acid [Folvite] 1 mg PO QDAY 30 Days #30 tablet 01/07/21 11/05/21 Unknown Rx Multivitamin Tab [Multiple Vitamin 1 each PO QDAY 30 Days #30 tablet 01/07/21 11/05/21 Unknown Rx TAB (Theragran)] Nitroglycerin [Nitrostat] 0.4 mg SL Q5M PRN 30 Days #30 01/07/21 11/05/21 Unknown Rx tablet levETIRAcetam [Keppra TAB] 500 mg PO BID #30 tablet 09/17/21 11/05/21 Unknown Rx Multivitamin with Folic Acid [Cvs 400 mcg PO QDAY #30 tablet 10/28/21 11/05/21 Unknown Rx One Daily Essential Tablet] chlordiazePOXIDE [Librium] 25 mg PO Q6H PRN #25 capsule 10/28/21 11/05/21 Unknown Rx ED Physical Exam - General Limitations: Altered Mental Status - Other Other exam information: General: No acute distress Head: Atraumatic Eyes: normal appearance ENT: Moist mucous membranes Neck: Normal appearance, no midline tenderness Chest: Clear to auscultation bilaterally CV: Regular rate and rhythm Abdomen: Soft, normal bowel sounds, nontender, nondistended, no rebound or guarding Back: Normal inspection Extremity: Normal inspection, full range of motion Neuro: Drowsy, intoxicated, slurred speech, equal handgrip and foot dorsiflexion Psych: Appropriate behavior Skin: No rash ED Course Vital Signs 11/05/21 11/05/21 11/05/21 04:06 04:59 06:30 Temperature 99.0 F Pulse Rate 105 H 87 89 Respiratory 20 14 16 Rate Blood Pressure 162/88 Blood Pressure 128/73 104/76 [Left] O2 Sat by Pulse 98 100 100 Oximetry - Reevaluation(s) Reevaluation #1: 11/05/21 09:57 Patient is more awake and oriented x3 with steady gait. States he would like to be discharged. He is calling a ride. Denies any physical complaints ED Medical Decision Making - Lab Data Result diagrams: 11/05/21 05:25 11/05/21 05:25 Lab Results 11/05/21 11/05/21 11/05/21 Range/Units 05:25 05:25 05:25 WBC 4.1 L (4.5-11.0) K/mm3 RBC 3.25 L (3.65-5.03) M/mm3 Hgb 11.3 L (11.8-15.2) gm/dl Hct 32.9 L (35.5-45.6) % MCV 101 H (84-94) fl MCH 35 H (28-32) pg MCHC 34 (32-34) % RDW 13.9 (13.2-15.2) % Plt Count 269 (140-440) K/mm3 Lymph % (Auto) 32.8 (13.4-35.0) % Ada % (Auto) 10.1 H (0.0-7.3) % Eos % (Auto) 6.5 H (0.0-4.3) % Baso % (Auto) 1.0 (0.0-1.8) % Lymph # (Auto) 1.3 (1.2-5.4) K/mm3 Ada # (Auto) 0.4 (0.0-0.8) K/mm3 Eos # (Auto) 0.3 (0.0-0.4) K/mm3 Baso # (Auto) 0.0 (0.0-0.1) K/mm3 Seg Neutrophils % 49.6 (40.0-70.0) % Seg Neutrophils # 2.0 (1.8-7.7) K/mm3 Sodium 147 H (137-145) mmol/L Potassium 3.7 (3.6-5.0) mmol/L Chloride 105.8 (98-107) mmol/L Carbon Dioxide 24 (22-30) mmol/L Anion Gap 21 mmol/L BUN 4 L (9-20) mg/dL Creatinine 0.5 L (0.8-1.3) mg/dL Estimated GFR > 60 ml/min BUN/Creatinine Ratio 8 % Glucose 87 (75-100) mg/dL Calcium 8.1 L (8.4-10.2) mg/dL Plasma/Serum Alcohol 0.34 H (0-0.07) % - Medical Decision Making 56-year-old male presents to the hospital with acute alcohol intoxication. Frequent ER visits for the same. Labs revealed mild dehydration and elevated al cohol level. Patient did sober up during ED stay and became more alert with steady gait. Will be discharged when his ride arrives Critical Care Time: No Critical care attestation.: If time is entered above; I have spent that time in minutes in the direct care of this critically ill patient, excluding procedure time. ED Disposition Clinical Impression: Acute alcohol intoxication, Alcohol abuse Disposition: 01 HOME / SELF CARE / HOMELESS Is pt being admited?: No Does the pt Need Aspirin: No Condition: Stable Instructions: Alcohol Use Disorder Additional Instructions: Follow-up with your doctor or doctor/clinic provided. Return if symptoms wor sen as indicated by your discharge instructions. Professional and Agency Contacts To help [facility] (19/10) [place] Crisis Line: Suicide Prevention Line: Crisis Text Line: Text ``START to 269315 Emergency: 911 SUBSTANCE ABUSE PROGRAMS: Sober Living [place]: Location: [place], [place] [employer] [place]! Address: [address] [place] [address] [address] [facility] Recovery: Address: [address] [place] [address] [facility] Adult Rehabilitation: Address: [address] [place] [address] [facility] Community: Address: [address] [place] [address] Referrals: [facility] [Provider Group] - 3-5 Days Time of Disposition: 09:59
[2021-11-05 11:14] VITALS: BP 114/65
== END 2021-11-05 11:14 | disposition home or self-care (01) ==
LOC: ED 03:52
DX: F10.129 Alcohol abuse with intoxication, unspecified (principal); Y90.9 Presence of alcohol in blood, level not specified; M19.90 Unspecified osteoarthritis, unspecified site; F20.9 Schizophrenia, unspecified; F41.9 Anxiety disorder, unspecified; F17.200 Nicotine dependence, unspecified, uncomplicated; Z79.899 Other long term (current) drug therapy; Z79.82 Long term (current) use of aspirin
CPT/HCPCS: 36415; 80048; 80320; 85025; 99284; G0480

== ENCOUNTER 2021-12-19 22:18 | Emergency (ER) | payer MEDICARE ==
[2021-12-20 00:57] LABS: Basophils % (Auto) 0.8 % (0.0-1.8); Eosinophils # (Auto) 0.1 K/mm3 (0.0-0.4); Eosinophils % (Auto) 3.2 % (0.0-4.3); Hematocrit 36.1 % (35.5-45.6); Hemoglobin 11.9 gm/dl (11.8-15.2); Lymphocytes # (Auto) 1.2 K/mm3 (1.2-5.4); Lymphocytes % (Auto) 27.1 % (13.4-35.0); Mean Corpuscular HGB Conc 33 % (32-34); Mean Corpuscular Volume 102 fl (84-94); Monocytes # (Auto) 0.6 K/mm3 (0.0-0.8); Monocytes % (Auto) 13.7 % (0.0-7.3); Platelet Count 239 K/mm3 (140-440); Red Blood Count 3.56 M/mm3 (3.65-5.03); Red Cell Distribution Width 13.7 % (13.2-15.2)
[2021-12-20 01:14] LABS: Alanine Aminotransferase 31 units/L (7-56); Albumin 4.1 g/dL (3.9-5); Blood Urea Nitrogen 8 mg/dL (9-20); Calcium 9.1 mg/dL (8.4-10.2); Hemolysis Index 14
[2021-12-20 01:16] LABS: BUN/Creatinine Ratio 11
[2021-12-20 03:18] LABS: Bilirubin,Urine Negative (Negative); Blood,Urine Negative (Negative); Color,Urine Colorless (Yellow); Protein,Urine <15 mg/dL mg/dL (Negative); Urobilinogen,Urine 0.2 mg/dL (<2.0)
[2021-12-20 03:20] LABS: WBC,Urine < 1.0 /HPF (0.0-6.0)
[2021-12-20 03:47] LABS: Amphetamine Screen,Urine Negative; Cannabinoid Screen,Urine Negative; Cocaine Screen,Urine Negative; Methadone Screen,Urine Negative; Opiate Screen,Urine Negative
[2021-12-20 04:10] LABS: Benzodiazepines Screen,Urine Positive
--- NOTE | 2021-12-20 05:34 | Emergency Department Report ---
ED Psych HPI - General Chief Complaint: Psych Stated Complaint: MH Time Seen by Provider: 12/20/21 01:02 Source: patient Mode of arrival: Ambulatory - History of Present Illness Initial Comments: Patient is a 56-year-old male presenting to ED with complaint of depression, anxiety and suicidal ideations. - Related Data Previous Rx's Medication Instructions Recorded Last Taken Type Colchicine 0.6 mg PO DAILY #5 tablet 01/25/16 Unknown Rx Meclizine HCl [Meclizine CHEW] 25 mg PO DAILY #20 tab.chew 06/02/18 Unknown Rx Gabapentin 300 mg PO BID #60 tab 04/21/19 Unknown Rx Thiamine [Vitamin B-1] 100 mg PO QDAY #30 tablet 04/21/19 Unknown Rx hydrOXYzine PAMOATE [Vistaril] 50 mg PO Q6H PRN #30 capsule 04/21/19 Unknown Rx Aspirin [Aspirin BABY CHEW TAB] 81 mg PO QDAY 30 Days #30 tab.chew 01/07/21 Unknown Rx AtorvaSTATin [Lipitor] 40 mg PO QHS 30 Days #30 tablet 01/07/21 Unknown Rx Folic Acid [Folvite] 1 mg PO QDAY 30 Days #30 tablet 01/07/21 Unknown Rx Multivitamin Tab [Multiple Vitamin 1 each PO QDAY 30 Days #30 tablet 01/07/21 Unknown Rx TAB (Theragran)] Nitroglycerin [Nitrostat] 0.4 mg SL Q5M PRN 30 Days #30 01/07/21 Unknown Rx tablet levETIRAcetam [Keppra TAB] 500 mg PO BID #30 tablet 09/17/21 Unknown Rx Multivitamin with Folic Acid [Cvs 400 mcg PO QDAY #30 tablet 10/28/21 Unknown Rx One Daily Essential Tablet] chlordiazePOXIDE [Librium] 25 mg PO Q6H PRN #25 capsule 10/28/21 Unknown Rx Allergies Allergy/AdvReac Type Severity Reaction Status Date / Time No Known Allergies Allergy Verified 10/30/21 17:48 ED Review of Systems ROS: Stated complaint: MH Other details as noted in HPI Constitutional: denies: chills, fever Respiratory: denies: cough, shortness of breath, wheezing Cardiovascular: denies: chest pain, palpitations Gastrointestinal: denies: abdominal pain, nausea, diarrhea Genitourinary: denies: urgency, dysuria Musculoskeletal: denies: back pain, joint swelling, arthralgia Skin: denies: rash, lesions Neurological: denies: headache, weakness, paresthesias Psychiatric: anxiety, depression, suicidal thoughts ED Past Medical Hx - Past Medical History Hx Arthritis: Yes Hx Seizures: Yes Hx Psychiatric Treatment: Yes (SCHIZOPHRENIA, anxiety) Additional medical history: Gout, Irregular heart beat, alcohol abuse, hyp othyroidism - Social History Smoking Status: Never Smoker Substance Use Type: Alcohol - Medications Home Medications: Home Medications Medication Instructions Recorded Confirmed Last Taken Type Colchicine 0.6 mg PO DAILY #5 tablet 01/25/16 11/05/21 Unknown Rx Meclizine HCl [Meclizine CHEW] 25 mg PO DAILY #20 tab.chew 06/02/18 11/05/21 Unknown Rx Gabapentin 300 mg PO BID #60 tab 04/21/19 11/05/21 Unknown Rx Thiamine [Vitamin B-1] 100 mg PO QDAY #30 tablet 04/21/19 11/05/21 Unknown Rx hydrOXYzine PAMOATE [Vistaril] 50 mg PO Q6H PRN #30 capsule 04/21/19 11/05/21 Unknown Rx Aspirin [Aspirin BABY CHEW TAB] 81 mg PO QDAY 30 Days #30 tab.chew 01/07/21 11/05/21 Unknown Rx AtorvaSTATin [Lipitor] 40 mg PO QHS 30 Days #30 tablet 01/07/21 11/05/21 Unknown Rx Folic Acid [Folvite] 1 mg PO QDAY 30 Days #30 tablet 01/07/21 11/05/21 Unknown Rx Multivitamin Tab [Multiple Vitamin 1 each PO QDAY 30 Days #30 tablet 01/07/21 11/05/21 Unknown Rx TAB (Theragran)] Nitroglycerin [Nitrostat] 0.4 mg SL Q5M PRN 30 Days #30 01/07/21 11/05/21 Unknown Rx tablet levETIRAcetam [Keppra TAB] 500 mg PO BID #30 tablet 09/17/21 11/05/21 Unknown Rx Multivitamin with Folic Acid [Cvs 400 mcg PO QDAY #30 tablet 10/28/21 11/05/21 Unknown Rx One Daily Essential Tablet] chlordiazePOXIDE [Librium] 25 mg PO Q6H PRN #25 capsule 10/28/21 11/05/21 Unknown Rx ED Physical Exam - General Limitations: No Limitations General appearance: alert, in no apparent distress - Head Head exam: Present: atraumatic, normocephalic - Respiratory Respiratory exam: Present: normal lung sounds bilaterally. Absent: respiratory distress - Cardiovascular Cardiovascular Exam: Present: regular rate, normal rhythm, normal heart sounds - GI/Abdominal GI/Abdominal exam: Present: soft. Absent: distended, tenderness - Rectal Rectal exam: Present: deferred - Neurological Exam Neurological exam: Present: alert, oriented X3, CN II-XII intact - Psychiatric Psychiatric exam: Present: normal affect, normal mood, suicidal ideation - Skin Skin exam: Present: warm, dry, intact, normal color ED Course Vital Signs 12/19/21 12/20/21 12/20/21 22:21 01:00 02:14 Temperature 97.2 F L 97.4 F L Pulse Rate 109 H 98 H Respiratory 20 18 Rate Blood Pressure 96/67 Blood Pressure 114/74 [Right] O2 Sat by Pulse 97 95 100 Oximetry ED Medical Decision Making - Lab Data Result diagrams: 12/20/21 00:21 12/20/21 00:21 - Medical Decision Making Labs reviewed. UDS positive for benzodiazepines, otherwise unremarkable. Rem aining labs are also grossly unremarkable. 1013 placed. Patient awaiting mental health assessment. Critical care attestation.: If time is entered above; I have spent that time in minutes in the direct care of this critically ill patient, excluding procedure time. ED Disposition Clinical Impression: Suicidal ideation, Depression Disposition: 30 STILL A PATIENT Is pt being admited?: No Condition: Stable
--- NOTE | 2021-12-20 09:54 | Consultation ---
History of Present Illness - Reason for Consult Consult date: 12/20/21 Reason for consult: depression, SI - History of Present Psychiatric Illness The patient was seen today. He says he is having family issues that makes him feel sad and depressed. The patient also says he became angry and his family and thought about busting the window out of the house. He says he had been drinking. He says so he just decided to come to the ER. He says "I didn't want to explode." The patient says he spent three weeks in [place] for a . He says his legs swell up and he could not walk. He says when he got home his mother wasn't there because his sister and brother had taken her and he didn't have cm to get in. He says "all they do is scheme" referring to his siblings. The patient denies SI/HI or hallucinations. He says "I just got real angry." He denies any illicit drug use, but does state he drinks a lot. The patient states he did not know how much he drank. He says "I don't know. A lot." The patient says he has a history of schizophrenia. REVIEW OF SYSTEMS Constitutional: Negative for weight loss ENT: Negative for stridor Respiratory: Negative for cough or hemoptysis All other systems reviewed and are negative MENTAL STATUS EXAMINATION General Appearance and Behavior: Age appropriate, wearing appropriate clothes, polite with questioning, good eye contact Cooperation: cooperative Psychomotor Behavior: Psychomotor increased Mood: okay Affect and affective range: congruent with stated mood Thought Process: goal directed Thought Content: within reality Speech: Fast rate and rhythm, normal volume Suicidal Ideation: Denies Homicidal Ideation: Denies Hallucination: Denies Delusions: None elicited Impulse Control: Limited Insight and Judgment: Limited Memory: Good Attention: Attentive Orientation: Alert and oriented x 3 ASSESSMENT: Alcohol Abuse with Substance Induced Mood TREATMENT: Continue home medications Risks, benefits and alternatives of medications discussed with the patient, questions answered and consent obtained from patient. PSYCHOTHERAPY: Supportive psychotherapy provided MEDICAL: Per primary team DELIRIUM PRECAUTIONS: Please re-orient patient frequently, keep lights on during the day, and minimize benzodiazepines and opiates as these medications could worsen patient's confusion. STATISTICS TEACHER: Defer to primary DISPOSITION: Do not Recommend acute inpatient psychiatric hospitalization. The patient understands that if SI/HI are to arise he is to seek immediate assistance. The shell maker lockstitch to give all necessary resources and complete safety plan. FOLLOW-UP: Will sign off. Thanks Case staffed with Dr. Sebas Lopez Medications and Allergies Allergies Allergy/AdvReac Type Severity Reaction Status Date / Time No Known Allergies Allergy Verified 10/30/21 17:48 Home Medications Medication Instructions Recorded Confirmed Last Taken Type Colchicine 0.6 mg PO DAILY #5 tablet 01/25/16 11/05/21 Unknown Rx Meclizine HCl [Meclizine CHEW] 25 mg PO DAILY #20 tab.chew 06/02/18 11/05/21 Unknown Rx Gabapentin 300 mg PO BID #60 tab 04/21/19 11/05/21 Unknown Rx Thiamine [Vitamin B-1] 100 mg PO QDAY #30 tablet 04/21/19 11/05/21 Unknown Rx hydrOXYzine PAMOATE [Vistaril] 50 mg PO Q6H PRN #30 capsule 04/21/19 11/05/21 Unknown Rx Aspirin [Aspirin BABY CHEW TAB] 81 mg PO QDAY 30 Days #30 tab.chew 01/07/21 11/05/21 Unknown Rx AtorvaSTATin [Lipitor] 40 mg PO QHS 30 Days #30 tablet 01/07/21 11/05/21 Unknown Rx Folic Acid [Folvite] 1 mg PO QDAY 30 Days #30 tablet 01/07/21 11/05/21 Unknown Rx Multivitamin Tab [Multiple Vitamin 1 each PO QDAY 30 Days #30 tablet 01/07/21 11/05/21 Unknown Rx TAB (Theragran)] Nitroglycerin [Nitrostat] 0.4 mg SL Q5M PRN 30 Days #30 01/07/21 11/05/21 Unknown Rx tablet levETIRAcetam [Keppra TAB] 500 mg PO BID #30 tablet 09/17/21 11/05/21 Unknown Rx Multivitamin with Folic Acid [Cvs 400 mcg PO QDAY #30 tablet 10/28/21 11/05/21 Unknown Rx One Daily Essential Tablet] chlordiazePOXIDE [Librium] 25 mg PO Q6H PRN #25 capsule 10/28/21 11/05/21 Unknown Rx Mental Status Exam - Vital signs Last Vital Signs Temp 97.4 F L 12/20/21 02:14 Pulse 98 H 12/20/21 02:14 Resp 18 12/20/21 02:14 BP 114/74 12/20/21 02:14 Pulse Ox 100 12/20/21 02:14 Results Result Diagrams: 12/20/21 00:21 12/20/21 00:21 Abnormal lab results 12/20/21 12/20/21 12/20/21 Range/Units 00:21 00:21 00:21 WBC 4.3 L (4.5-11.0) K/mm3 RBC 3.56 L (3.65-5.03) M/mm3 MCV 102 H (84-94) fl MCH 33 H (28-32) pg [place] % (Auto) 13.7 H (0.0-7.3) % Carbon Dioxide 18 L (22-30) mmol/L BUN 8 L (9-20) mg/dL Creatinine 0.7 L (0.8-1.3) mg/dL Glucose 103 H (75-100) mg/dL AST 44 H (5-40) units/L Ur Specific [place] (1.003-1.030) Salicylates < 0.3 L (2.8-20.0) mg/dL Acetaminophen (10.0-30.0) ug/mL Plasma/Serum Alcohol (0-0.07) % 12/20/21 12/20/21 12/20/21 Range/Units 00:21 00:21 02:04 WBC (4.5-11.0) K/mm3 RBC (3.65-5.03) M/mm3 MCV (84-94) fl MCH (28-32) pg [place] % (Auto) (0.0-7.3) % Carbon Dioxide (22-30) mmol/L BUN (9-20) mg/dL Creatinine (0.8-1.3) mg/dL Glucose (75-100) mg/dL AST (5-40) units/L Ur Specific [place] 1.000 L (1.003-1.030) Salicylates (2.8-20.0) mg/dL Acetaminophen 5.0 L (10.0-30.0) ug/mL Plasma/Serum Alcohol 0.21 H (0-0.07) % All other labs normal.
[2021-12-20 10:38] VITALS: BP 100/58
== END 2021-12-20 12:32 | disposition still patient (30) ==
LOC: ED 22:18
DX: F32.A Depression, unspecified (principal); F10.20 Alcohol dependence, uncomplicated; Z20.822 Contact with and (suspected) exposure to COVID-19
CPT/HCPCS: 36415; 80048; 80053; 80307; 81001; 84443; 85025; 99284; U0003; 80320; G0480